=== PATIENT | male | born 1950 | race African-American/Black ===

== ENCOUNTER → 2020-04-26 12:26 | Outpatient (REF) | payer MEDICARE, MEDICAID, SELFPAY ==
--- NOTE | 2020-04-26 13:00 | CA_ITS ---
Transthoracic Echocardiogram Patient (Last, First, Middle): Roger Monroy, Gender: Male Date of : 1950 Age: 69 Procedure Date: 04/26/2020 Procedure Type: Transthoracic Echocardiogram Location: OP Height: 198.12 cm Weight: 111.13 kg BSA: 2.46 m2 Heart Rate: bpm BP: 110 / 60 mmHg Optometrist President/Practice Owner: GORDON Ledbetter MD: Vikash Mcknight MD Intelligence Clerk: Vikash Mcknight MD Symptoms: heart failure with reduced EF. Cardiomyopathy. Mitral Regurg Study Quality: Fair ECG Rhythm: Sinus Conclusions: - 1. Mildly dilated left ventricle with [id number] LV systolic dysfunction with LVEF of 40-45% with impaired relaxation filling pattern 2. Mild left atrial enlargement 3. Mild aortic and mitral regurgitation 4. Normal RV systolic pressure 5. No pericardial effusion Findings Left Ventricle Mildly increased left ventricular cavity size. There is normal left ventricular wall thickness. The left ventricular systolic function is mild to moderately decreased. The visually estimated ejection fraction is between 40-45%. There is moderate global hypokinesis. Spectral Doppler is indicative of an impaired relaxation filling pattern. E/E prime ratio is between 8 and 15 consistent with indeterminate filling pressures. Right Ventricle Normal right ventricular cavity size and systolic function. There is an ICD wire seen in the right ventricle. Atria The left atrium is mildly dilated. Interatrial shunt cannot be excluded. The right atrium is normal in size. Aortic Valve Normal aortic valve structure and function. There is no aortic valve stenosis. There is mild aortic valve regurgitation. Mitral Valve There is mild anterior and posterior mitral leaflet thickening. There is mild mitral valve regurgitation. There is no mitral valve stenosis. Pulmonic Valve The pulmonic valve was not well visualized. Tricuspid Valve Likely normal tricuspid valve structure and function. There is trace tricuspid valve regurgitation. The right ventricular systolic pressure is normal. The right ventricular systolic pressure is 21 mmHg. Normal right atrial pressure. There is no evidence of pulmonary hypertension. Great Vessels All visible segments of the aorta are normal in size. The pulmonary artery was not well visualized. Venous The inferior vena cava is normal in size and collapses greater than 50% with inspiration. Pericardium/Pleural There is no evidence of pericardial effusion. Prior Study Comparison Changes noted compared to prior study dated: 04/14/2019. LV systolic function is marginally improved Measurements 2D Linear Measurements IVSd: 1.01 0.6-0.9/0.6-1.0 cm LVIDd: 6.11 3.9-5.3/4.2-5.9 cm LVIDd Index: 2.48 2.4-3.2/2.2-3.1 cm/m2 LVIDs: 5.51 2.0-3.6 cm LVPWd: 1.05 0.7-1.1 cm Ao Root: 4.00 2.1-3.5 cm LA Diam: 3.60 2.7-3.8/3.0-4.0 cm LAIDs Index: 1.46 1.5-2.3 cm/m2 LV Mass: 329.93 67-162/88-224 g LV Mass Index: 134.12 43-95/49-115 g/m2 LVOT Diam: 2.30 3.0+(-)1.3 cm 2D Systolic Function EF 4C: 49.40 >55% EF 2C: 36.70 >55% EF BiP: 43.40 >55% Mitral Valve MV Pk E: 0.62 MV PK A: 0.80 MV Decel Time: 206.00 E/A: 0.80 E'Lateral: 5.98 E'Medial: 4.13 E/E' Med: 15.10 E/E' Lat: 10.40 PHT: 57.00 MVA PHT: 3.86 Decel [place]: 3.17 Aortic Valve AoV Pk Wiley: 1.60 AoV Mn Wiley: 1.18 AoV VTI: 0.33 AoV Pk Grad: 10.00 Aov Mn Grad: 6.00 CARLINE Cont.VTI: 2.46 AI Pk Wiley: 4.37 AI [place]: 2.45 LVOT LVOT Pk Wiley: 0.91 LVOT Mn Wiley: 0.62 LVOT VTI: 0.19 LVOT Pk Grad: 3.00 LVOT Mn Grad: 2.00 LVOT Diam: 2.30 LVOT Area: 4.15 Diastolic Function MV Pk E: 0.62 MV Pk A: 0.80 E/A: 0.80 E'Medial: 4.13 E/E' Med: 15.10 E' Laterial: 5.98 E/E' Lat: 10.40 Tricuspid Valve TR Pk Wiley: 2.10 TR Pk Grad: 18.00 RA Press: 3.00 RVSP: 21.00 Great Vessels Aorta Ao Root-2D: 4.00 2.0-3.7 cm Ao Asc: 3.70 2.1-3.4 cm Ao Arch: 2.80 Updated in Other Vendor System with Status of Final Vikash Mcknight MD electronically signed on 04/26/2020 2:32:51 PM with status of Final
== END ==
LOC: HO.CARD 12:26
PROVIDERS: PCP Internal Medicine; Visit Provider Internal Medicine Cardiovascular Disease
DX: I50.9 Heart failure, unspecified (principal); I42.9 Cardiomyopathy, unspecified; I34.0 Nonrheumatic mitral (valve) insufficiency
CPT/HCPCS: 93306

== ENCOUNTER → 2020-05-02 14:21 | Outpatient (BNVA) | payer MEDICARE, MEDICAID, SELFPAY | PROVIDERS: PCP Internal Medicine; Visit Provider Internal Medicine Cardiovascular Disease | DX: Z45.02 Encounter for adjustment and management of automatic implantable cardiac defibrillator (principal); I50.20 Unspecified systolic (congestive) heart failure; I42.8 Other cardiomyopathies | CPT/HCPCS: 99212 ==

== ENCOUNTER → 2021-02-01 11:56 | Outpatient (BNVA) | payer MEDICARE, MEDICAID, SELFPAY | PROVIDERS: PCP Internal Medicine; Referring Provider Internal Medicine; Visit Provider Internal Medicine Cardiovascular Disease | DX: I50.20 Unspecified systolic (congestive) heart failure (principal); I35.0 Nonrheumatic aortic (valve) stenosis; I34.0 Nonrheumatic mitral (valve) insufficiency; Z95.810 Presence of automatic (implantable) cardiac defibrillator; Z98.890 Other specified postprocedural states; Z88.8 Allergy status to other drugs, medicaments and biological substances; Z79.899 Other long term (current) drug therapy | CPT/HCPCS: 99212 ==

== ENCOUNTER → 2021-07-03 12:27 | Outpatient (REF) | payer MEDICARE, MEDICAID, SELFPAY ==
--- NOTE | 2021-07-03 12:26 | CA_ITS ---
Transthoracic Echocardiogram Patient (Last, First, Middle): Roger Monroy, Gender: Male Date of : 1950 Age: 70 Procedure Date: 07/03/2021 Procedure Type: Transthoracic Echocardiogram Location: OP Height: 198.12 cm Weight: 115.67 kg BSA: 2.50 m2 Heart Rate: bpm BP: 136 / 78 mmHg Cement Crusher Operator: EUGENE Referring MD: Vikash Mcknight MD Net Architect: Vikash Mcknight MD Symptoms: I50.20 - Unspecified systolic (congestive) heart failure Study Quality: Fair ECG Rhythm: Sinus Conclusions: - 1. Moderately dilated left ventricle with mild LVH with low normal LV systolic function with LVEF of 50-55% with impaired relaxation filling pattern 2. Moderately dilated left atrium 3. Mild aortic and mitral regurgitation 4. Normal RV systolic pressure 5. No pericardial effusion Findings Left Ventricle Moderately increased left ventricular cavity size. There is mildly increased left ventricular wall thickness. The left ventricular systolic function is low normal. The visually estimated ejection fraction is between 50-55%. Spectral Doppler is indicative of an impaired relaxation filling pattern. E/E prime ratio is between 8 and 15 consistent with indeterminate filling pressures. Right Ventricle Mildly increased right ventricular cavity size. There is normal right ventricular systolic function. There is an ICD wire seen in the right ventricle. Atria The left atrium is moderately dilated. Interatrial shunt cannot be excluded. The right atrium is mildly dilated. Aortic Valve There is mild calcification of the aortic valve. There is no aortic valve stenosis. There is mild aortic valve regurgitation. Mitral Valve There is mild anterior and posterior mitral leaflet thickening. There is mild mitral valve regurgitation. There is no mitral valve stenosis. Tricuspid Valve Likely normal tricuspid valve structure and function. There is trace tricuspid valve regurgitation. The right ventricular systolic pressure is normal. The right ventricular systolic pressure is 25 mmHg. Normal right atrial pressure. There is no evidence of pulmonary hypertension. Great Vessels The pulmonary artery was not well visualized. There is mild dilatation of the ascending aorta measuring 3.90 cm. Venous The inferior vena cava is normal in size and collapses greater than 50% with inspiration. Pericardium/Pleural There is no evidence of pericardial effusion. Prior Study Comparison Changes noted compared to prior study dated: 04/26/2020. LV systolic function is improved Measurements 2D Linear Measurements IVSd: 1.24 0.6-0.9/0.6-1.0 cm LVIDd: 6.48 3.9-5.3/4.2-5.9 cm LVIDd Index: 2.59 2.4-3.2/2.2-3.1 cm/m2 LVIDs: 5.05 2.0-3.6 cm LVPWd: 1.18 0.7-1.1 cm LA Diam: 3.60 2.7-3.8/3.0-4.0 cm LAIDs Index: 1.44 1.5-2.3 cm/m2 LV Mass: 493.01 67-162/88-224 g LV Mass Index: 197.20 43-95/49-115 g/m2 LVOT Diam: 2.40 3.0+(-)1.3 cm 2D Systolic Function EF 4C: 50.90 >55% EF 2C: 52.30 >55% EF BiP: 52.10 >55% Mitral Valve MV Pk E: 0.54 MV PK A: 0.72 MV Decel Time: 323.00 E/A: 0.70 E'Lateral: 5.87 E'Medial: 5.44 E/E' Med: 9.90 E/E' Lat: 9.10 PHT: 95.00 MVA PHT: 2.32 Decel [place]: 1.66 Aortic Valve AoV Pk Wiley: 1.72 AoV Mn Wiley: 1.20 AoV VTI: 0.43 AoV Pk Grad: 12.00 Aov Mn Grad: 7.00 CARLINE Cont.VTI: 2.77 AI Pk Wiley: 4.52 AI [place]: 1.90 LVOT LVOT Pk Wiley: 1.00 LVOT Mn Wiley: 0.69 LVOT VTI: 0.26 LVOT Pk Grad: 4.00 LVOT Mn Grad: 2.00 LVOT Diam: 2.40 LVOT Area: 4.52 Diastolic Function MV Pk E: 0.54 MV Pk A: 0.72 E/A: 0.70 E'Medial: 5.44 E/E' Med: 9.90 E' Laterial: 5.87 E/E' Lat: 9.10 Right Ventricle TAPSE (mm): 2.57 TVS' Wiley: 12.40 Tricuspid Valve TR Pk Wiley: 2.33 TR Pk Grad: 22.00 RA Press: 3.00 RVSP: 25.00 Great Vessels Aorta Sinus of Valsalva: 3.88 2.0-3.[address] [place]: 3.51 1.7-3.4 cm Ao Asc: 3.90 2.1-3.4 cm Ao Arch: 3.00 Updated in Other Vendor System with Status of Final Vikash Mcknight MD electronically signed on 07/04/2021 8:43:53 AM with status of Final
== END ==
LOC: HO.CARD 12:27
PROVIDERS: PCP Internal Medicine; Visit Provider Internal Medicine Cardiovascular Disease
DX: I50.20 Unspecified systolic (congestive) heart failure (principal)
CPT/HCPCS: 93306

== ENCOUNTER → 2021-07-31 13:22 | Outpatient (BNVA) | payer MEDICARE, MEDICAID, SELFPAY | PROVIDERS: PCP Internal Medicine; Referring Provider Internal Medicine; Visit Provider Internal Medicine Cardiovascular Disease | DX: Z45.02 Encounter for adjustment and management of automatic implantable cardiac defibrillator (principal); I50.20 Unspecified systolic (congestive) heart failure | CPT/HCPCS: 93282; 99212 ==

== ENCOUNTER → 2021-10-09 13:20 | Outpatient (BNVA) | payer MEDICARE, MEDICAID, SELFPAY | PROVIDERS: PCP Internal Medicine; Referring Provider Internal Medicine; Visit Provider Internal Medicine Cardiovascular Disease | DX: Z45.02 Encounter for adjustment and management of automatic implantable cardiac defibrillator (principal); I50.20 Unspecified systolic (congestive) heart failure; I48.0 Paroxysmal atrial fibrillation | CPT/HCPCS: 93005; 99212 ==

== ENCOUNTER 2022-02-05 14:04 | Outpatient (REF) | payer MEDICARE, MEDICAID, SELFPAY ==
[2022-02-05 14:45] LABS: Hemoglobin 12.6 g/dl (14.0-18.0); Mean Corpuscular HGB Conc 31.5 g/dl (31.0-36.0); Mean Corpuscular Hemoglobin 27.9 pg (27.0-33.0); Mean Corpuscular Volume 88.5 fL (80.0-98.0); Platelet Count 219 X10*3/uL (160-400); Red Blood Count 4.52 X10*6/uL (4.60-5.80); Red Cell Distribution Width 13.6 % (11.0-16.0); White Blood Count 6.2 X10*3/uL (4.8-10.8)
[2022-02-05 15:33] LABS: Anion Gap 12 (12-20); Blood Urea Nitrogen 15 mg/dL (9-16); Calcium 9.2 mg/dL (8.4-10.2); Carbon Dioxide 30 mmol/L (22-29); Chloride 103 mmol/L (96-108); Estimated Glomerular Filt Rate 52; Glucose Random 76 mg/dL (60-115); Potassium 4.5 mmol/L (3.3-5.1); Sodium 140 mmol/L (135-145)
== END 2022-02-05 14:05 | disposition home or self-care (01) ==
LOC: HO.LAB 14:04
PROVIDERS: PCP Internal Medicine; Visit Provider Internal Medicine Cardiovascular Disease
DX: I42.8 Other cardiomyopathies (principal); I50.20 Unspecified systolic (congestive) heart failure; I48.0 Paroxysmal atrial fibrillation; Z95.810 Presence of automatic (implantable) cardiac defibrillator
CPT/HCPCS: 36415; 80048; 85027; 99212

== ENCOUNTER → 2022-04-15 13:46 | Outpatient (BNVA) | payer MEDICARE, MEDICAID, SELFPAY | PROVIDERS: PCP Internal Medicine; Referring Provider Internal Medicine; Visit Provider Internal Medicine Cardiovascular Disease | DX: I50.20 Unspecified systolic (congestive) heart failure (principal); I48.0 Paroxysmal atrial fibrillation; Z95.810 Presence of automatic (implantable) cardiac defibrillator | CPT/HCPCS: 99212 ==

== ENCOUNTER → 2022-07-22 13:26 | Outpatient (REF) | payer MEDICARE, MEDICAID, SELFPAY ==
--- NOTE | 2022-07-22 13:33 | CA_ITS ---
Transthoracic Echocardiogram Patient (Last, First, Middle): Roger Monroy, Gender: Male Date of : 1950 Age: 71 Procedure Date: 07/22/2022 Procedure Type: Transthoracic Echocardiogram Location: OP Height: 198.12 cm Weight: 115.21 kg BSA: 2.50 m2 Heart Rate: bpm BP: 130 / 80 mmHg Head Operator Sulfide: EUGENE Referring MD: Vikash Mcknight MD Symptoms: I50.20 - Unspecified systolic (congestive) heart failure Study Quality: Adequate ECG Rhythm: Sinus Conclusions: - The left ventricular systolic function is low normal. The visually estimated ejection fraction is between 50-55%. - The left atrium is severely dilated. - There is mild aortic valve regurgitation. - There is mild mitral valve regurgitation. Findings Left Ventricle Moderately increased left ventricular cavity size. There is mildly increased left ventricular wall thickness. The left ventricular systolic function is low normal. The visually estimated ejection fraction is between 50-55%. There is no evidence of regional wall motion abnormalities. Diastolic function is normal for age. LV peak GLS -16%. Right Ventricle Normal right ventricular cavity size. There is normal right ventricular systolic function. There is a pacemaker wire seen in the right ventricle. Atria The left atrium is severely dilated. The right atrium is normal in size. Aortic Valve There is a normal trileaflet aortic valve. There is no aortic valve stenosis. There is mild aortic valve regurgitation. Mitral Valve The mitral valve appears normal. There is mild mitral valve regurgitation. There is no mitral valve stenosis. Pulmonic Valve The pulmonic valve is likely normal. Tricuspid Valve There is trace tricuspid valve regurgitation. Great Vessels The asc aorta is normal in size. Venous The inferior vena cava is dilated and collapses greater than 50% with inspiration. Pericardium/Pleural There is no evidence of pericardial effusion. Prior Study Comparison No significant change compared to prior study dated: 07/03/2021. Measurements 2D Linear Measurements IVSd: 1.26 0.6-0.9/0.6-1.0 cm LVIDd: 6.10 3.9-5.3/4.2-5.9 cm LVIDd Index: 2.44 2.4-3.2/2.2-3.1 cm/m2 LVIDs: 4.48 2.0-3.6 cm LVPWd: 1.24 0.7-1.1 cm LA Diam: 4.30 2.7-3.8/3.0-4.0 cm LAIDs Index: 1.72 1.5-2.3 cm/m2 LV Mass: 425.44 67-162/88-224 g LV Mass Index: 170.18 43-95/49-115 g/m2 LVOT Diam: 2.40 3.0+(-)1.3 cm 2D Systolic Function EF 4C: 59.90 >55% EF 2C: 57.90 >55% Mitral Valve MV Pk E: 0.88 MV PK A: 0.84 MV Decel Time: 261.00 E/A: 1.10 E'Lateral: 10.30 E'Medial: 7.40 E/E' Med: 11.90 E/E' Lat: 8.50 PHT: 76.00 MVA PHT: 2.89 Decel [place]: 3.37 Aortic Valve AoV Pk Wiley: 1.81 AoV Mn Wiley: 1.24 AoV VTI: 0.45 AoV Pk Grad: 13.00 Aov Mn Grad: 7.00 CARLINE Cont.VTI: 3.42 AI Pk Wiley: 4.31 AI [place]: 1.85 LVOT LVOT Pk Wiley: 1.47 LVOT Mn Wiley: 0.89 LVOT VTI: 0.34 LVOT Pk Grad: 9.00 LVOT Mn Grad: 4.00 LVOT Diam: 2.40 LVOT Area: 4.52 Diastolic Function MV Pk E: 0.88 MV Pk A: 0.84 E/A: 1.10 E'Medial: 7.40 E/E' Med: 11.90 E' Laterial: 10.30 E/E' Lat: 8.50 Right Ventricle TAPSE (mm): 22.40 TVS' Wiley: 10.00 Tricuspid Valve TR Pk Wiley: 2.28 TR Pk Grad: 21.00 RA Press: 8.00 RVSP: 29.00 Great Vessels Aorta Sinus of Valsalva: 3.89 2.0-3.[address] [place]: 3.47 1.7-3.4 cm Ao Asc: 3.90 2.1-3.4 cm Updated in Other Vendor System with Status of Final Vlad Monroe MD electronically signed on 07/23/2022 11:43:37 AM with status of Final
== END ==
LOC: HO.CARD 13:26
PROVIDERS: PCP Internal Medicine; Visit Provider Internal Medicine Cardiovascular Disease
DX: I42.8 Other cardiomyopathies (principal); I50.20 Unspecified systolic (congestive) heart failure
CPT/HCPCS: 93306; 93356

== ENCOUNTER → 2022-08-06 13:22 | Outpatient (BNVA) | payer MEDICARE, MEDICAID, SELFPAY | PROVIDERS: PCP Internal Medicine; Referring Provider Internal Medicine; Visit Provider Internal Medicine Cardiovascular Disease | DX: Z45.02 Encounter for adjustment and management of automatic implantable cardiac defibrillator (principal); I50.20 Unspecified systolic (congestive) heart failure; I48.0 Paroxysmal atrial fibrillation | CPT/HCPCS: 99212 ==

== ENCOUNTER → 2022-09-30 23:59 | Outpatient (BNV) | payer MEDICARE, MEDICAID, SELFPAY ==
--- NOTE | 2022-10-03 09:22 | A.OFFVIS_ITS ---
Intake Intake Visit Reasons: Remote HF Monitoring- [facility] Allergies prednisone [PREDNISONE] Allergy (Unknown, Unverified 12/02/19 15:57) UNKNOWN [facility] Medical History Heart failure with reduced ejection fraction ICD (implantable cardioverter-defibrillator) in place Mitral regurgitation Nonischemic cardiomyopathy Surgical History History of permanent cardiac pacemaker placement Hx of cardiac cath Hx of knee surgery Family History Father Sudden cardiac Mother No problems noted. Office Procedures Cardiac Device Check Cardiac Device Check Details: Remote heart failure report generated 09/30/2022. Heart failure parameters stable [id number] Cardiac Device Interrogation, cardio physiologic monitor Procedure code (CPT) selection complete Coding Level of Care Code Procedure Only Diagnoses CPT Codes Cardiac Device Check - Cardiac Device 15: [id number] Cardiac Device Interrogation, cardio physiologic monitor ([id number])
== END ==
PROVIDERS: PCP Internal Medicine; Visit Provider Internal Medicine Cardiovascular Disease
DX: I50.20 Unspecified systolic (congestive) heart failure (principal); Z95.810 Presence of automatic (implantable) cardiac defibrillator
CPT/HCPCS: 93297

== ENCOUNTER → 2022-11-14 23:59 | Outpatient (BNV) | payer MEDICARE, MEDICAID, SELFPAY ==
--- NOTE | 2022-11-14 11:40 | MHC.OFFVIS ---
Intake Intake Visit Reasons: Remote HF Monitoring- [facility] Allergies prednisone [PREDNISONE] Allergy (Unknown, Unverified 12/02/19 15:57) UNKNOWN [facility] Medical History Heart failure with reduced ejection fraction ICD (implantable cardioverter-defibrillator) in place Mitral regurgitation Nonischemic cardiomyopathy Surgical History History of permanent cardiac pacemaker placement Hx of cardiac cath Hx of knee surgery Family History Father Sudden cardiac Mother No problems noted. Office Procedures Cardiac Device Check Cardiac Device Check Details: Remote heart failure report generated 11/14/2022. Heart failure parameters are stable [id number] Cardiac Device Interrogation, cardio physiologic monitor Procedure code (CPT) selection complete Coding Level of Care Code Procedure Only Diagnoses CPT Codes Cardiac Device Check - Cardiac Device 15: [id number] Cardiac Device Interrogation, cardio physiologic monitor ([id number])
== END ==
PROVIDERS: PCP Internal Medicine; Visit Provider Internal Medicine Cardiovascular Disease
DX: I50.22 Chronic systolic (congestive) heart failure (principal); Z95.810 Presence of automatic (implantable) cardiac defibrillator
CPT/HCPCS: 93297

== ENCOUNTER → 2022-11-23 23:59 | Outpatient (BNV) | payer MEDICARE, MEDICAID, SELFPAY ==
--- NOTE | 2022-11-25 09:37 | A.OFFVIS_ITS ---
Intake Intake Visit Reasons: Remote ICD Check- [facility] Allergies prednisone [PREDNISONE] Allergy (Unknown, Unverified 12/02/19 15:57) UNKNOWN [facility] Medical History Heart failure with reduced ejection fraction ICD (implantable cardioverter-defibrillator) in place Mitral regurgitation Nonischemic cardiomyopathy Surgical History History of permanent cardiac pacemaker placement Hx of cardiac cath Hx of knee surgery Family History Father Sudden cardiac Mother No problems noted. Office Procedures Cardiac Device Check Cardiac Device Check Details: Remote ICD report generated 11/23/2022. ICD function is adequate [id number] Cardiac Interrogation, implant defibrillator w/interim Procedure code (CPT) selection complete Coding Level of Care Code Procedure Only CPT Codes Cardiac Device Check - Cardiac Device 13: [id number] Cardiac Interrogation, implant defibrillator w/interim ([id number])
== END ==
PROVIDERS: PCP Internal Medicine; Visit Provider Internal Medicine Cardiovascular Disease
DX: I42.8 Other cardiomyopathies (principal); Z95.810 Presence of automatic (implantable) cardiac defibrillator
CPT/HCPCS: 93295

== ENCOUNTER → 2022-12-20 23:59 | Outpatient (BNV) | payer MEDICARE, MEDICAID, SELFPAY ==
--- NOTE | 2023-01-06 09:02 | MHC.OFFVIS ---
Intake Intake Visit Reasons: Remote HF Monitoring- [facility] Allergies prednisone [PREDNISONE] Allergy (Unknown, Unverified 12/02/19 15:57) UNKNOWN [facility] Medical History Heart failure with reduced ejection fraction ICD (implantable cardioverter-defibrillator) in place Mitral regurgitation Nonischemic cardiomyopathy Surgical History History of permanent cardiac pacemaker placement Hx of cardiac cath Hx of knee surgery Family History Father Sudden cardiac Mother No problems noted. Office Procedures Cardiac Device Check Cardiac Device Check Details: Remote heart failure report generated 12/20/2022. Heart failure parameters are stable [id number] Cardiac Device Interrogation, cardio physiologic monitor Procedure code (CPT) selection complete Coding Level of Care Code Procedure Only CPT Codes Cardiac Device Check - Cardiac Device 15: [id number] Cardiac Device Interrogation, cardio physiologic monitor ([id number])
== END ==
PROVIDERS: PCP Internal Medicine; Visit Provider Internal Medicine Cardiovascular Disease
DX: I50.20 Unspecified systolic (congestive) heart failure (principal); Z95.810 Presence of automatic (implantable) cardiac defibrillator
CPT/HCPCS: 93297

== ENCOUNTER 2023-02-04 12:48 | Outpatient (AMB) | payer MEDICARE, MEDICAID, SELFPAY ==
[2023-02-04 13:10] VITALS: BP 122/68; PULSE 60; BMI 28.5
--- NOTE | 2023-02-04 13:10 | A.OFFVIS_ITS ---
Intake Vital Signs 02/04/23 13:10 Height 6 ft 6 in Weight 246 lb 14.684 oz BMI 28.5 BP 122/68 Blood Pressure Location Lt brachial Position Sitting Pulse 60 Intake Visit Reasons: 6 mth w/ device ck Intake Note: 6 month follow-up with ekg and [facility] check hearts doing good [employer] Driver Required: No Allergies prednisone [PREDNISONE] Allergy (Unknown, Unverified 12/02/19 15:57) UNKNOWN Medication List - Last Reconciled 02/04/23 by Vikash Mcknight MD amitriptyline 25 mg PO BID apixaban (Eliquis) 5 mg PO BID carvedilol 50 mg (2 x 25 mg) PO Q12H finasteride 5 mg PO DAILY furosemide 40 mg PO BID ipratropium-albuterol 0.5 mg-3 mg(2.5 mg base)/3 mL mL inhalation Q4H PRN ivabradine (Corlanor) 5 mg PO BID 90 days omeprazole 20 mg PO BID oxycodone-acetaminophen 5-325 mg 1 tab PO sacubitril-valsartan 97-103 mg (Entresto) 1 tab PO BID 90 days tamsulosin 0.4 mg PO BEDTIME HPI HPI Comments History of Present Illness Details Roger comes for follow-up. He is doing well from cardiac perspective. Recently had significant back discomfort that require injection. Otherwise he has had no cardiac symptoms. Denies any exertional chest pain or shortness of breath. No heart failure symptoms. Denies any orthopnea, PND, leg edema or weight gain. No palpitations, lightheadedness, syncope, ICD discharge. [facility] Medical History ICD (implantable cardioverter-defibrillator) in place Mitral regurgitation Nonischemic cardiomyopathy Heart failure with reduced ejection fraction Surgical History History of permanent cardiac pacemaker placement Hx of cardiac cath Hx of knee surgery Family History Father Sudden cardiac Mother No problems noted. Review of Systems Const Denies chills, Denies fatigue, Denies fever(s), Denies frequent falls, Denies weakness, Denies weight gain and Denies weight loss ENT Denies dizziness Card Denies chest pain, Denies leg edema, Denies lightheadedness, Denies palpitations, Denies dyspnea, Denies dyspnea on exertion, Denies orthopnea and Denies other (loss of consciousness) Resp Denies cough, Denies dyspnea and Denies dyspnea on exertion GI Denies hematochezia and Denies change in stool character Musc Denies abnormal gait, Denies muscle weakness, Denies numbness, Denies radiating pain into limb and Denies tingling Neuro Denies abnormal gait, Denies dizziness, Denies frequent falls, Denies numbness, Denies tingling and Denies weakness Endo Denies fatigue and Denies palpitations Physical Exam Vital Signs: Last Vital Signs Pulse 60 02/04/23 13:10 BP 122/68 02/04/23 13:10 BMI result Body Mass Index 28.5 Const General: cooperative, no acute distress, alert and awake Nutritional Appearance: overweight Orientation/consciousness: patient oriented x3 Limitations: no limitations Neck Neck: Yes trachea midline, Yes supple and Yes no JVD Resp Effort & Inspection: normal respiratory effort Auscultation: clear to auscultation bilaterally Cardio Jugular venous distension: no JVD Palpation: abnormal PMI displaced PMI Rate: regular rate Rhythm: regular rhythm Heart sounds: S1 normal heart sound present and S2 normal heart sound present GI Auscultation: normal bowel sounds Skin General skin exam: no rashes or lesions noted Neuro General: patient oriented x3 and no focal motor deficits Extrem General: Yes no clubbing, cyanosis or edema Psych Appearance: grossly normal Office Procedures Cardiac Device Check Cardiac Device Check Details: Single-chamber [place] ICD in place. Programmed in VVI at 40 beats per minute. Ventricular pacing thresholds adequate. Ventricular sensing is adequate. Pacing and shock lead impedance is stable. Battery life is adequate. [id number] Cardiac Device Check, single lead implantable defibrillator Procedure code (CPT) selection complete EKG Details: EKG shows sinus bradycardia otherwise normal EKG 56921-[id number], Complete Assessment & Plan Assessment & Plan (1) Heart failure with reduced ejection fraction: Code(s): I50.20 - Unspecified systolic (congestive) heart failure Plan: Prior history of heart failure with reduced ejection fraction with severe cardiomyopathy with improved LV ejection fraction on neurohormonal modulation and medical therapy. Clinically euvolemic and well compensated. Continue current diuretic regimen. Continue current neurohormonal modulation carvedilol as well as Entresto and Corlanor. Signs and symptoms of heart failure were discussed. Daily weight monitoring avoidance of salt loading was discussed avoidance of cardiotoxic agent was discussed. Follow-up echocardiogram 6 months time. (2) PAF (paroxysmal atrial fibrillation): Comment: high suspicion on remote ICD monitoring Code(s): I48.0 - Paroxysmal atrial fibrillation Plan: Paroxysmal atrial fibrillation with no clinical recurrence at this point time by cardiac telemetry. Will continue monitor. Advised to call me with any new symptoms. Currently on full oral anticoagulation with Eliquis 5 mg b.i.d.. Semi annual renal function test should be pursued. Avoidance of stimulants was discussed. No need for antiarrhythmic drug therapy. (3) ICD (implantable cardioverter-defibrillator) in place: Code(s): Z95.810 - Presence of automatic (implantable) cardiac defibrillator Plan: ICD in place for primary prevention. Working well. Will follow remotely for heart failure on device check. Follow up in the clinic in 6 months time. Follow up in the clinic in 6 months time, sooner p.r.n.. Thank you for allowing me to partake in his care Orders: Orders CA echo transthoracic complete 6 Months I50.20 - Unspecified systolic (congestive) heart failure Coding Level of Care Code Est Pt Level 4 (59243) Diagnoses Heart failure with reduced ejection fraction I50.20 PAF (paroxysmal atrial fibrillation) I48.0 ICD (implantable cardioverter-defibrillator) in place Z95.810 CPT Codes Cardiac Device Check - Cardiac Device 4: 41762-OW Cardiac Device Check, single lead implantable defibrillator ([id number]) EKG - CPT: 53687-Wnbfpzrnypyeweqmu, Complete ([id number])
== END 2023-02-04 13:36 | disposition home or self-care (01) ==
PROVIDERS: Visit Provider Internal Medicine Cardiovascular Disease
DX: I50.20 Unspecified systolic (congestive) heart failure (principal); I48.0 Paroxysmal atrial fibrillation; Z95.810 Presence of automatic (implantable) cardiac defibrillator; R00.1 Bradycardia, unspecified
CPT/HCPCS: 93010; 93282; 99214

== ENCOUNTER → 2023-02-04 12:48 | Outpatient (BNVA) | payer MEDICARE, MEDICAID, SELFPAY | PROVIDERS: Visit Provider Internal Medicine Cardiovascular Disease | DX: I11.0 Hypertensive heart disease with heart failure (principal); I50.20 Unspecified systolic (congestive) heart failure; I48.0 Paroxysmal atrial fibrillation; I42.8 Other cardiomyopathies; I34.0 Nonrheumatic mitral (valve) insufficiency; Z98.890 Other specified postprocedural states; Z45.02 Encounter for adjustment and management of automatic implantable cardiac defibrillator | CPT/HCPCS: 93005; 99212 ==

== ENCOUNTER → 2023-02-10 23:59 | Outpatient (BNV) | payer MEDICARE, MEDICAID, SELFPAY ==
--- NOTE | 2023-02-10 15:09 | MHC.OFFVIS ---
Intake Intake Visit Reasons: Remote HF Monitoring- [facility] Allergies prednisone [PREDNISONE] Allergy (Unknown, Unverified 12/02/19 15:57) UNKNOWN [facility] Medical History ICD (implantable cardioverter-defibrillator) in place Mitral regurgitation Nonischemic cardiomyopathy Heart failure with reduced ejection fraction Surgical History History of permanent cardiac pacemaker placement Hx of cardiac cath Hx of knee surgery Family History Father Sudden cardiac Mother No problems noted. Office Procedures Cardiac Device Check Cardiac Device Check Details: Remote heart failure report generated 02/10/2023. Heart failure parameters are stable [id number] Cardiac Device Interrogation, cardio physiologic monitor Procedure code (CPT) selection complete Coding Level of Care Code Procedure Only CPT Codes Cardiac Device Check - Cardiac Device 15: [id number] Cardiac Device Interrogation, cardio physiologic monitor ([id number])
== END ==
PROVIDERS: PCP Internal Medicine; Visit Provider Internal Medicine Cardiovascular Disease
DX: I50.20 Unspecified systolic (congestive) heart failure (principal); Z95.810 Presence of automatic (implantable) cardiac defibrillator
CPT/HCPCS: 93297

== ENCOUNTER → 2023-02-22 23:59 | Outpatient (BNV) | payer MEDICARE, MEDICAID, SELFPAY ==
--- NOTE | 2023-02-24 11:26 | MHC.OFFVIS ---
Intake Intake Visit Reasons: Remote ICD Check- [facility] Allergies prednisone [PREDNISONE] Allergy (Unknown, Unverified 12/02/19 15:57) UNKNOWN [facility] Medical History ICD (implantable cardioverter-defibrillator) in place Mitral regurgitation Nonischemic cardiomyopathy Heart failure with reduced ejection fraction Surgical History History of permanent cardiac pacemaker placement Hx of cardiac cath Hx of knee surgery Family History Father Sudden cardiac Mother No problems noted. Office Procedures Cardiac Device Check Cardiac Device Check Details: Remote ICD report generated 02/22/2023. ICD function is adequate [id number] Cardiac Interrogation, implant defibrillator w/interim Procedure code (CPT) selection complete Assessment & Plan Assessment & Plan (1) ICD (implantable cardioverter-defibrillator) in place: Code(s): Z95.810 - Presence of automatic (implantable) cardiac defibrillator Plan: See above Coding Level of Care Code Procedure Only Diagnoses ICD (implantable cardioverter-defibrillator) in place Z95.810 CPT Codes Cardiac Device Check - Cardiac Device 13: [id number] Cardiac Interrogation, implant defibrillator w/interim ([id number])
== END ==
PROVIDERS: PCP Internal Medicine; Visit Provider Internal Medicine Cardiovascular Disease
DX: I42.8 Other cardiomyopathies (principal); Z95.810 Presence of automatic (implantable) cardiac defibrillator
CPT/HCPCS: 93295

== ENCOUNTER → 2023-03-13 23:59 | Outpatient (BNV) | payer MEDICARE, MEDICAID, SELFPAY ==
--- NOTE | 2023-03-18 08:10 | A.OFFVIS_ITS ---
Intake Intake Visit Reasons: Remote HF Monitoring- [facility] Allergies prednisone [PREDNISONE] Allergy (Unknown, Unverified 12/02/19 15:57) UNKNOWN [facility] Medical History ICD (implantable cardioverter-defibrillator) in place Mitral regurgitation Nonischemic cardiomyopathy Heart failure with reduced ejection fraction Surgical History History of permanent cardiac pacemaker placement Hx of cardiac cath Hx of knee surgery Family History Father Sudden cardiac Mother No problems noted. Office Procedures Cardiac Device Check Cardiac Device Check Details: Remote heart failure report generated 03/13/2023. Heart failure parameters are stable [id number] Cardiac Device Interrogation, cardio physiologic monitor Procedure code (CPT) selection complete Assessment & Plan Assessment & Plan (1) Heart failure with reduced ejection fraction: Code(s): I50.20 - Unspecified systolic (congestive) heart failure Plan: See above Coding Level of Care Code Procedure Only Diagnoses Heart failure with reduced ejection fraction I50.20 CPT Codes Cardiac Device Check - Cardiac Device 15: [id number] Cardiac Device Interrogation, cardio physiologic monitor ([id number])
== END ==
PROVIDERS: PCP Internal Medicine; Visit Provider Internal Medicine Cardiovascular Disease
DX: I50.20 Unspecified systolic (congestive) heart failure (principal); Z95.810 Presence of automatic (implantable) cardiac defibrillator
CPT/HCPCS: 93297

== ENCOUNTER → 2023-05-19 23:59 | Outpatient (BNV) | payer MEDICARE, MEDICAID, SELFPAY ==
--- NOTE | 2023-05-19 16:33 | MHC.OFFVIS ---
Intake Intake Visit Reasons: Remote HF Monitoring- [facility] Allergies prednisone [PREDNISONE] Allergy (Unknown, Unverified 12/02/19 15:57) UNKNOWN [facility] Medical History ICD (implantable cardioverter-defibrillator) in place Mitral regurgitation Nonischemic cardiomyopathy Heart failure with reduced ejection fraction Surgical History History of permanent cardiac pacemaker placement Hx of cardiac cath Hx of knee surgery Family History Father Sudden cardiac Mother No problems noted. Office Procedures Cardiac Device Check Cardiac Device Check Details: Remote heart failure report generated 05/19/2023. Heart failure parameters are stable [id number] Cardiac Device Interrogation, cardio physiologic monitor Procedure code (CPT) selection complete Assessment & Plan Assessment & Plan (1) ICD (implantable cardioverter-defibrillator) in place: Code(s): Z95.810 - Presence of automatic (implantable) cardiac defibrillator Plan: See above Coding Level of Care Code Procedure Only Diagnoses ICD (implantable cardioverter-defibrillator) in place Z95.810 CPT Codes Cardiac Device Check - Cardiac Device 15: [id number] Cardiac Device Interrogation, cardio physiologic monitor ([id number])
== END ==
PROVIDERS: PCP Internal Medicine; Visit Provider Internal Medicine Cardiovascular Disease
DX: I50.20 Unspecified systolic (congestive) heart failure (principal); Z95.810 Presence of automatic (implantable) cardiac defibrillator
CPT/HCPCS: 93297

== ENCOUNTER → 2023-05-24 23:59 | Outpatient (BNV) | payer MEDICARE, MEDICAID, SELFPAY ==
--- NOTE | 2023-05-26 15:45 | MHC.OFFVIS ---
Intake Intake Visit Reasons: Remote ICD Check- [facility] Allergies prednisone [PREDNISONE] Allergy (Unknown, Unverified 12/02/19 15:57) UNKNOWN [facility] Medical History ICD (implantable cardioverter-defibrillator) in place Mitral regurgitation Nonischemic cardiomyopathy Heart failure with reduced ejection fraction Surgical History History of permanent cardiac pacemaker placement Hx of cardiac cath Hx of knee surgery Family History Father Sudden cardiac Mother No problems noted. Office Procedures Cardiac Device Check Cardiac Device Check Details: Remote ICD report generated 05/24/2023. ICD function is adequate. No arrhythmias detected [id number] Cardiac Interrogation, implant defibrillator w/interim Procedure code (CPT) selection complete Assessment & Plan Assessment & Plan (1) ICD (implantable cardioverter-defibrillator) in place: Code(s): Z95.810 - Presence of automatic (implantable) cardiac defibrillator Plan: See above Coding Level of Care Code Procedure Only Diagnoses ICD (implantable cardioverter-defibrillator) in place Z95.810 CPT Codes Cardiac Device Check - Cardiac Device 13: [id number] Cardiac Interrogation, implant defibrillator w/interim ([id number])
== END ==
PROVIDERS: PCP Internal Medicine; Visit Provider Internal Medicine Cardiovascular Disease
DX: I42.8 Other cardiomyopathies (principal); I50.20 Unspecified systolic (congestive) heart failure; Z95.810 Presence of automatic (implantable) cardiac defibrillator
CPT/HCPCS: 93295

== ENCOUNTER → 2023-06-20 23:59 | Outpatient (BNV) | payer MEDICARE, MEDICAID, SELFPAY ==
--- NOTE | 2023-06-23 16:14 | MHC.OFFVIS ---
Intake Intake Visit Reasons: Remote HF monitoring- [facility] Allergies prednisone [PREDNISONE] Allergy (Unknown, Unverified 12/02/19 15:57) UNKNOWN [facility] Medical History ICD (implantable cardioverter-defibrillator) in place Mitral regurgitation Nonischemic cardiomyopathy Heart failure with reduced ejection fraction Surgical History History of permanent cardiac pacemaker placement Hx of cardiac cath Hx of knee surgery Family History Father Sudden cardiac Mother No problems noted. Office Procedures Cardiac Device Check Cardiac Device Check Details: Remote heart failure report generated 06/20/2023. Heart failure parameters are stable [id number] Cardiac Device Interrogation, cardio physiologic monitor Procedure code (CPT) selection complete Assessment & Plan Assessment & Plan (1) ICD (implantable cardioverter-defibrillator) in place: Code(s): Z95.810 - Presence of automatic (implantable) cardiac defibrillator Plan: See above Coding Level of Care Code Procedure Only Diagnoses ICD (implantable cardioverter-defibrillator) in place Z95.810 CPT Codes Cardiac Device Check - Cardiac Device 15: [id number] Cardiac Device Interrogation, cardio physiologic monitor ([id number])
== END ==
PROVIDERS: PCP Internal Medicine; Visit Provider Internal Medicine Cardiovascular Disease
DX: Z45.02 Encounter for adjustment and management of automatic implantable cardiac defibrillator (principal)
CPT/HCPCS: 93297

== ENCOUNTER → 2023-07-15 12:24 | Outpatient (REF) | payer MEDICARE, MEDICAID, SELFPAY ==
--- NOTE | 2023-07-15 12:27 | CA_ITS ---
Transthoracic Echocardiogram Patient (Last, First, Middle): Roger Monroy, Gender: Male Date of : 1950 Age: 72 Procedure Date: 07/15/2023 Procedure Type: Transthoracic Echocardiogram Location: OP Height: 198.12 cm Weight: 114.31 kg BSA: 2.49 m2 Heart Rate: 50 bpm BP: 120 / 64 mmHg Belt Dresser: SB Referring MD: Vikash Mcknight MD Symptoms: I50.20 - Unspecified systolic (congestive) heart failure Study Quality: Adequate ECG Rhythm: Bradycardia Conclusions: - The left ventricular systolic function is mildly decreased. The calculated ejection fraction is 50% by biplane method. - The basal inferior segment is hypokinetic. - The left atrium is moderately dilated. - No obvious valvular pathology seen on this study. Findings Procedure Information Contrast agent, definity, is being given per protocol without apparent complications. Left Ventricle Normal left ventricular cavity size. The left ventricular systolic function is mildly decreased. The calculated ejection fraction is 50% by biplane method. There is mild global hypokinesis. Evidence suggests grade I (mild) diastolic dysfunction. There is mild septal asymmetric hypertrophy. Wall Motion Rest Echo Findings The basal inferior segment is hypokinetic. Right Ventricle Moderately increased right ventricular cavity size. There is normal right ventricular systolic function. There is a pacemaker wire seen in the right ventricle. Atria The left atrium is moderately dilated. The right atrium is normal in size. Aortic Valve There is a normal trileaflet aortic valve. There is no aortic valve stenosis. Trace to mild aortic regurgitation. Mitral Valve The mitral valve appears normal. There is no mitral valve regurgitation. There is no mitral valve stenosis. Pulmonic Valve The pulmonic valve is likely normal. Tricuspid Valve Normal tricuspid valve structure. There is trace tricuspid valve regurgitation. There is no evidence of pulmonary hypertension. Great Vessels The asc aorta is normal in size. Venous The inferior vena cava is mildly dilated and collapses greater than 50% with inspiration. Pericardium/Pleural There is no evidence of pericardial effusion. Prior Study Comparison No significant change compared to prior study dated: 07/22/2022. (wall motion similar in review of prior images). Recommendations, Care & Conclusions No obvious valvular pathology seen on this study. Measurements 2D Linear Measurements IVSd: 1.31 0.6-0.9/0.6-1.0 cm LVIDd: 6.21 3.9-5.3/4.2-5.9 cm LVIDd Index: 2.49 2.4-3.2/2.2-3.1 cm/m2 LVIDs: 4.61 2.0-3.6 cm LVPWd: 1.01 0.7-1.1 cm LA Diam: 4.30 2.7-3.8/3.0-4.0 cm LAIDs Index: 1.73 1.5-2.3 cm/m2 LV Mass: 396.41 67-162/88-224 g LV Mass Index: 159.20 43-95/49-115 g/m2 LVOT Diam: 2.50 3.0+(-)1.3 cm 2D Systolic Function EF 4C: 49.20 >55% EF 2C: 51.40 >55% EF BiP: 50.00 >55% Mitral Valve MV Pk E: 0.69 MV PK A: 0.79 MV Decel Time: 227.00 E/A: 0.90 E'Lateral: 8.16 E'Medial: 4.90 E/E' Med: 14.20 E/E' Lat: 8.50 PHT: 67.00 MVA PHT: 3.28 Decel [place]: 3.05 Aortic Valve AoV Pk Wiley: 1.63 AoV Mn Wiley: 1.10 AoV VTI: 0.37 AoV Pk Grad: 11.00 Aov Mn Grad: 5.00 CARLINE Cont.VTI: 4.11 AI Pk Wiley: 4.15 AI [place]: 2.13 LVOT LVOT Pk Wiley: 1.40 LVOT Mn Wiley: 0.86 LVOT VTI: 0.31 LVOT Pk Grad: 8.00 LVOT Mn Grad: 3.00 LVOT Diam: 2.50 LVOT Area: 4.91 Diastolic Function MV Pk E: 0.69 MV Pk A: 0.79 E/A: 0.90 E'Medial: 4.90 E/E' Med: 14.20 E' Laterial: 8.16 E/E' Lat: 8.50 Right Ventricle TAPSE (mm): 23.40 TVS' Wiley: 13.80 Tricuspid Valve TR Pk Wiley: 2.39 TR Pk Grad: 23.00 RA Press: 3.00 RVSP: 26.00 Great Vessels Aorta Sinus of Valsalva: 3.60 2.0-3.5 cm Ao Asc: 3.80 2.1-3.4 cm Pulmonary Valve PV Pk Wiley: 0.75 Peak PV Grad: 2.00 Updated in Other Vendor System with Status of Final Vlad Monroe MD electronically signed on 07/17/2023 5:07:43 PM with status of Final
== END ==
LOC: HO.CARD 12:24
PROVIDERS: PCP Internal Medicine; Visit Provider Internal Medicine Cardiovascular Disease
DX: I50.20 Unspecified systolic (congestive) heart failure (principal)
CPT/HCPCS: 93306; Q9957

== ENCOUNTER → 2023-07-15 12:27 | Outpatient (BNV) | payer MEDICARE, MEDICAID, SELFPAY | PROVIDERS: PCP Internal Medicine; Visit Provider Internal Medicine | DX: I50.20 Unspecified systolic (congestive) heart failure (principal); I35.1 Nonrheumatic aortic (valve) insufficiency | CPT/HCPCS: 93306 ==

== ENCOUNTER 2023-08-05 13:29 | Outpatient (AMB) | payer MEDICARE, MEDICAID, SELFPAY ==
[2023-08-05 14:18] VITALS: BP 110/70; PULSE 62; BMI 28.8
--- NOTE | 2023-08-05 14:18 | MHC.OFFVIS ---
Vital Signs 08/05/23 14:18 Height 6 ft 6 in Weight 249 lb 1.957 oz BMI 28.8 BP 110/70 Blood Pressure Location Lt brachial Position Sitting Pulse 62 Intake Visit Reasons: 6 mth f/up w/ device ck and s/p echo Intake Note: 6 month follow-up with [facility] and echo hearts feeling good [employer] Required: No Allergies prednisone [PREDNISONE] Allergy (Unknown, Unverified 12/02/19 15:57) UNKNOWN Medication List - Last Reconciled 08/05/23 by Vikash Mcknight MD amitriptyline 25 mg PO BID apixaban (Eliquis) 5 mg PO BID 90 days carvedilol 50 mg (2 x 25 mg) PO Q12H 90 days finasteride 5 mg PO DAILY furosemide 40 mg PO BID ipratropium-albuterol 0.5 mg-3 mg(2.5 mg base)/3 mL mL inhalation Q4H PRN ivabradine (Corlanor) 5 mg PO BID oxycodone-acetaminophen 5-325 mg 1 tab PO sacubitril-valsartan 97-103 mg (Entresto) 1 tab PO BID 90 days tamsulosin 0.4 mg PO BEDTIME HPI Comments Details: Roger comes for follow-up. He has been doing very well from cardiac perspective. His most recent echocardiogram shows low normal LV ejection fraction with normal LV cavity size with no significant mitral regurgitation with grade 1 diastolic dysfunction. He denies any heart failure symptoms. Denies any orthopnea, PND, leg edema. No prolonged palpitations, irregular heartbeat, syncope, ICD discharge. Takes all his medications regularly. Watches his diet. He exercises regularly with walking and biking. [facility] Medical History ICD (implantable cardioverter-defibrillator) in place Mitral regurgitation Nonischemic cardiomyopathy Heart failure with reduced ejection fraction Surgical History History of permanent cardiac pacemaker placement Hx of cardiac cath Hx of knee surgery Family History Father Sudden cardiac Mother No problems noted. Review of Systems Const Denies chills, Denies fatigue, Denies fever(s), Denies frequent falls, Denies weakness, Denies weight gain and Denies weight loss ENT Denies dizziness Card Denies chest pain, Denies leg edema, Denies lightheadedness, Denies palpitations, Denies dyspnea, Denies dyspnea on exertion, Denies orthopnea and Denies other (loss of consciousness) Resp Denies cough, Denies dyspnea and Denies dyspnea on exertion GI Denies hematochezia and Denies change in stool character Musc Denies abnormal gait, Denies muscle weakness, Denies numbness, Denies radiating pain into limb and Denies tingling Neuro Denies abnormal gait, Denies dizziness, Denies frequent falls, Denies numbness, Denies tingling and Denies weakness Endo Denies fatigue and Denies palpitations Physical Exam Vital Signs: Last Vital Signs Pulse 62 08/05/23 14:18 BP 110/70 08/05/23 14:18 BMI result Body Mass Index 28.8 Const General: cooperative, no acute distress, alert and awake Nutritional Appearance: overweight Orientation/consciousness: patient oriented x3 Limitations: no limitations Neck Neck: Yes trachea midline, Yes supple and Yes no JVD Resp Effort & Inspection: normal respiratory effort Auscultation: clear to auscultation bilaterally Cardio Jugular venous distension: no JVD Palpation: abnormal PMI displaced PMI Rate: regular rate Rhythm: regular rhythm Heart sounds: S1 normal heart sound present and S2 normal heart sound present GI Auscultation: normal bowel sounds Skin General skin exam: no rashes or lesions noted Neuro General: patient oriented x3 and no focal motor deficits Extrem General: Yes no clubbing, cyanosis or edema Psych Appearance: grossly normal Office Procedures Cardiac Device Check Cardiac Device Check Details: Single-chamber [facility] ICD in place. Programmed in VVI at 40 beats per minute. Ventricular capture thresholds excellent. Ventricular sensing is excellent. Pacing and shock lead impedance is stable. Battery life is at 3.4 years. No significant arrhythmias noted [id number] Cardiac Device Check, single lead implantable defibrillator Procedure code (CPT) selection complete Assessment & Plan Assessment & Plan (1) Heart failure with reduced ejection fraction: Code(s): I50.20 - Unspecified systolic (congestive) heart failure Category: Medical Plan: Heart failure with reduced ejection fraction with severe cardiomyopathy and dilated LV which has improved with medical therapy with normalized LV systolic function normalized mitral regurgitation. His LV ejection fraction is now in the low-normal range. Continue aggressively neurohormonal modulation with carvedilol, Entresto, Corlanor therapy. Continue current diuretic does with Lasix. Clinically euvolemic and well compensated. Encouraged to continue to participate in physical activity as tolerated. (2) PAF (paroxysmal atrial fibrillation): Comment: high suspicion on remote ICD monitoring Code(s): I48.0 - Paroxysmal atrial fibrillation Category: Medical Plan: Paroxysmal atrial fibrillation remained suppressed on current therapy. Continue carvedilol therapy. Avoidance of stimulants was discussed. Advised to call me with any significant symptoms of palpitation. Continue current full oral anticoagulation with atrial fibrillation. At risk for recurrent atrial fibrillation given his left atrial enlargement although does not require any antiarrhythmic drug therapy at this point time. (3) ICD (implantable cardioverter-defibrillator) in place: Code(s): Z95.810 - Presence of automatic (implantable) cardiac defibrillator Category: Medical Plan: ICD in place for primary prevention. Will continue monitor remotely for heart failure as well as device function. Follow up in the clinic in 6 months time, sooner p.r.n.. Thank you for allowing me to partake in his care Coding Level of Care Code Est Pt Level 4 (78168) Diagnoses Heart failure with reduced ejection fraction I50.20 PAF (paroxysmal atrial fibrillation) I48.0 ICD (implantable cardioverter-defibrillator) in place Z95.810 CPT Codes Cardiac Device Check - Cardiac Device 4: [id number] Cardiac Device Check, single lead implantable defibrillator ([id number])
== END 2023-08-05 14:47 | disposition home or self-care (01) ==
PROVIDERS: PCP Internal Medicine; Visit Provider Internal Medicine Cardiovascular Disease
DX: I50.20 Unspecified systolic (congestive) heart failure (principal); I48.0 Paroxysmal atrial fibrillation; Z95.810 Presence of automatic (implantable) cardiac defibrillator
CPT/HCPCS: 93282; 99214

== ENCOUNTER → 2023-08-05 13:29 | Outpatient (BNVA) | payer MEDICARE, MEDICAID, SELFPAY | PROVIDERS: PCP Internal Medicine; Visit Provider Internal Medicine Cardiovascular Disease | DX: Z45.02 Encounter for adjustment and management of automatic implantable cardiac defibrillator (principal); I50.20 Unspecified systolic (congestive) heart failure; I48.0 Paroxysmal atrial fibrillation | CPT/HCPCS: 99212 ==

== ENCOUNTER → 2023-08-23 23:59 | Outpatient (BNV) | payer MEDICARE, MEDICAID, SELFPAY ==
--- NOTE | 2023-08-26 12:38 | A.OFFVIS_ITS ---
Intake Visit Reasons: Remote ICd Check- [facility] Allergies prednisone [PREDNISONE] Allergy (Unknown, Unverified 12/02/19 15:57) UNKNOWN [facility] Medical History ICD (implantable cardioverter-defibrillator) in place Mitral regurgitation Nonischemic cardiomyopathy Heart failure with reduced ejection fraction Surgical History History of permanent cardiac pacemaker placement Hx of cardiac cath Hx of knee surgery Family History Father Sudden cardiac Mother No problems noted. Office Procedures Cardiac Device Check Cardiac Device Check Details: Remote ICD report generated on 08/23/2023. ICD function is adequate [id number] Cardiac Interrogation, implant defibrillator w/interim Procedure code (CPT) selection complete Assessment & Plan Assessment & Plan (1) ICD (implantable cardioverter-defibrillator) in place: Code(s): Z95.810 - Presence of automatic (implantable) cardiac defibrillator Category: Medical Plan: see above Coding Level of Care Code Procedure Only Diagnoses ICD (implantable cardioverter-defibrillator) in place Z95.810 CPT Codes Cardiac Device Check - Cardiac Device 13: [id number] Cardiac Interrogation, im plant defibrillator w/interim ([id number])
== END ==
PROVIDERS: PCP Internal Medicine; Visit Provider Internal Medicine Cardiovascular Disease
DX: Z45.02 Encounter for adjustment and management of automatic implantable cardiac defibrillator (principal)
CPT/HCPCS: 93295

== ENCOUNTER 2023-09-22 21:16 | Emergency (ER) | payer MEDICARE, MEDICAID, SELFPAY ==
[2023-09-22 21:29] VITALS: BP 130/70; PULSE 64; O2SAT 98
[2023-09-22 21:30] VITALS: BMI 29.1
[2023-09-22 21:54] LABS: MANUAL DIFF FLAG NO
[2023-09-22 21:56] LABS: Basophils Percent Auto 0.2 % (0-2); Eosinophils Percent Auto 0.2 % (0-4); Hematocrit 33.2 % (42.0-52.0); Hemoglobin 11.5 g/dl (14.0-18.0); Imm Gran Abs Auto 0.03 X10*3/uL (0.00-0.03); Imm Gran Pct Auto 0.3 % (0.0-0.4); Lymphocytes Absolute Auto 2.2 X10*3/uL (1.2-4.9); Lymphocytes Percent Auto 24.7 % (20-40); Mean Corpuscular HGB Conc 34.6 g/dl (31.0-36.0); Mean Corpuscular Hemoglobin 29.2 pg (27.0-33.0); Mean Corpuscular Volume 84.3 fL (80.0-98.0); Mean Platelet Volume 9.8 fL (9.4-12.4); Monocytes Absolute Auto 0.8 X10*3/uL (0.1-1.2); Monocytes Percent Auto 9.4 % (2-11); Neutrophils Absolute Auto 5.7 x10*3/uL (2.0-8.3); Neutrophils Percent Auto 65.2 % (45-73); Platelet Count 226 X10*3/uL (160-400); Red Blood Count 3.94 X10*6/uL (4.60-5.80); Red Cell Distribution Width 13.5 % (11.0-16.0); White Blood Count 8.7 X10*3/uL (4.8-10.8)
[2023-09-22 22:17] LABS: Alanine Aminotransferase 12 U/L (0-40); Alkaline Phosphatase 61 U/L (39-117); Anion Gap 13 (12-20); Aspartate Amino Transferase 15 U/L (5-37); Bilirubin Total 0.5 mg/dL (0.0-1.0); Blood Urea Nitrogen 15 mg/dL (9-16); Calcium 8.9 mg/dL (8.4-10.2); Carbon Dioxide 25 mmol/L (22-29); Chloride 94 mmol/L (96-108); Creatinine Clr Calc Pharmacy 85.7; Estimated Glomerular Filt Rate > 60; Glucose Random 83 mg/dL (60-115); Lipase 17 U/L (8-78); Sodium 128 mmol/L (135-145); Total Protein 6.9 g/dL (6.5-8.0)
[2023-09-22 22:34] LABS: Amphetamine Screen Urine Not Detected (Not Detect); Barbiturates, Urine Not Detected (Not Detect); Benzodiazepines Screen Urine Not Detected (Not Detect); Buprenorphine Scr Not Detected (Not Detect); Cannabinoid Screen Urine Not Detected (Not Detect); Cocaine Screen Urine Not Detected (Not Detect); Fentanyl, urine Not Detected (Not Detect); Methadone Screen, Urine Not Detected (Not Detect); Opiate Screen Urine Not Detected (Not Detect); Oxycodone Screen Urine Positive (Not Detect); Phencyclidine Screen Urine Not Detected (Not Detect)
--- NOTE | 2023-09-22 22:48 | ED.PSYCH ---
HPI - Psych General Chief Complaint: Psychiatric Symptoms Stated Complaint: DEPRESSION AND ANXIETY PER EMS Time Seen by Provider: 09/22/23 22:47 Source: patient Mode of arrival: ambulatory Limitations: no limitations History of Present Illness ED Provider: jackelin HPI Narrative: Patient with history of anxiety/depression has not seen any psychiatrist been more depressed feels anxious unable to sleep for last few nights for multiple reasons denies any SI Related Data Home Medications ?Medication ?Instructions ?Recorded ?Confirmed amitriptyline 25 mg tablet 25 mg PO BID 05/02/20 08/05/23 finasteride 5 mg tablet 5 mg PO DAILY 05/02/20 08/05/23 oxycodone-acetaminophen 5 mg-325 1 tab PO 05/02/20 08/05/23 mg tablet tamsulosin 0.4 mg capsule 0.4 mg PO BEDTIME 05/02/20 08/05/23 furosemide 40 mg tablet 40 mg PO BID 02/01/21 08/05/23 ipratropium 0.5 mg-albuterol 3 mg ml inhalation Q4H PRN 07/31/21 08/05/23 (2.5 mg base)/3 mL nebulization soln Previous Rx's ?Medication ?Instructions ?Recorded apixaban 5 mg tablet (Eliquis) 5 mg PO BID 90 days #180 tabs 02/24/23 carvedilol 25 mg tablet 50 mg (2 x 25 mg) PO Q12H 90 days 04/03/23 #360 tabs sacubitril 97 mg-valsartan 103 mg 1 tab PO BID 90 days #180 tabs 05/27/23 tablet (Entresto) ivabradine 5 mg tablet (Corlanor) 5 mg PO BID #180 tabs 08/29/23 Allergies Allergy/AdvReac Type Severity Reaction Status Date / Time prednisone [PREDNISONE] Allergy Unknown UNKNOWN Verified 09/22/23 21:35 Review of Systems Review of Systems: Yes all other systems are reviewed and are negative PMFSH Past Medical History Medical History ICD (implantable cardioverter-defibrillator) in place Mitral regurgitation Nonischemic cardiomyopathy Heart failure with reduced ejection fraction Surgical History History of permanent cardiac pacemaker placement Hx of cardiac cath Hx of knee surgery Family History Family History Father Sudden cardiac Mother No problems noted. Social History Social History Smoked in Last 30 Days: No Use of substances other than those prescribed or required for medical reasons: No Advance Directives: No Advance Directives Information Provided: No Do you have a plan to hurt others: No Plan Physical Exam Vital Signs: Vital Signs: Last Vital Signs Temp 97.6 F 09/23/23 03:42 Pulse 61 09/23/23 03:42 Resp 17 09/23/23 03:42 BP 112/49 L 09/23/23 03:42 Pulse Ox 95 09/23/23 03:42 O2 Del Method Room Air 09/23/23 03:42 BMI result Body Mass Index 29.1 Appearance: Alert. Oriented X3. No acute distress. Eyes: PERRLA, No Nystagmus ENT: Pharynx normal. Oral Mucosa moist Neck: Normal inspection. Neck supple. CVS: Normal heart rate and rhythm. Pulses normal. Respiratory: No respiratory distress. Equal air entry bilateral, no wheezing/rales/rhonchi Abdomen: Soft and nontender. Bowel sounds are present, no mass palpable, no CVA tenderness Skin: Skin warm and dry. Normal skin color. Normal skin turgor. Extremities: No lower extremity edema. No calf tenderness psych: Normal mood at this time no SI or HI Neuro: Oriented X 3. No motor deficit. No sensory deficit.No cerebellar signs , cranial nerves II-XII intact Medications Administered Discontinued Medications Generic Name Dose Route Start Last Admin Trade Name Freq PRN Reason Stop Dose Admin Lorazepam 1 mg 09/22/23 23:10 09/22/23 23:51 Lorazepam 1 Mg Tablet PO 09/22/23 23:11 1 mg ONCE ONE Administration Medical Decision Making Medical Decision Making MDM Narrative: Patient has significant depression anxiety will consult care team for further evaluation Lab Data 09/22/23 21:50 09/22/23 21:50 Labs: Lab Results 09/22/23 09/22/23 Range/Units 21:50 22:16 WBC 8.7 (4.8-10.8) X10*3/uL RBC 3.94 L (4.60-5.80) X10*6/uL Hgb 11.5 L (14.0-18.0) g/dl Hct 33.2 L (42.0-52.0) % MCV 84.3 (80.0-98.0) fL MCH 29.2 (27.0-33.0) pg MCHC 34.6 (31.0-36.0) g/dl RDW 13.5 (11.0-16.0) % Plt Count 226 (160-400) X10*3/uL MPV 9.8 (9.4-12.4) fL Immature Gran % (Auto) 0.3 (0.0-0.4) % Neut % (Auto) 65.2 (45-73) % Lymph % (Auto) 24.7 (20-40) % [place] % (Auto) 9.4 (2-11) % Eos % (Auto) 0.2 (0-4) % Baso % (Auto) 0.2 (0-2) % Lymph # (Auto) 2.2 (1.2-4.9) X10*3/uL [place] # (Auto) 0.8 (0.1-1.2) X10*3/uL Eos # (Auto) 0.0 (0.0-0.4) X10*3/uL Baso # (Auto) 0.0 (0.0-0.2) X10*3/uL Abs Immat Gran (auto) 0.03 (0.00-0.03) X10*3/uL Absolute Neuts (auto) 5.7 (2.0-8.3) x10*3/uL Absolute Nucleated RBC 0.000 (0.0-0.012) X10*3/uL Nucleated RBC % (auto) 0.0 (0.0-0.2) /100WBC Sodium 128 L (135-145) mmol/L Potassium 4.0 (3.3-5.1) mmol/L Chloride 94 L (96-108) mmol/L Carbon Dioxide 25 (22-29) mmol/L Anion Gap 13 (12-20) BUN 15 (9-16) mg/dL Creatinine 1.14 (0.5-1.4) mg/dL Estim Creat Clear Calc 85.7 Estimated GFR > 60 Random Glucose 83 (60-115) mg/dL Calcium 8.9 (8.4-10.2) mg/dL Total Bilirubin 0.5 (0.0-1.0) mg/dL AST 15 (5-37) U/L ALT 12 (0-40) U/L Alkaline Phosphatase 61 (39-117) U/L Total Protein 6.9 (6.5-8.0) g/dL Albumin 4.0 (3.5-5.0) g/dL Lipase 17 (8-78) U/L Urine Opiates Screen Not Detected (Not Detect) Ur Buprenorphine Scrn Not Detected (Not Detect) ng/mL Ur Oxycodone Screen Positive H (Not Detect) ng/mL Urine Methadone Screen Not Detected (Not Detect) ng/mL Urine Fentanyl Screen Not Detected (Not Detect) Ur Barbiturates Screen Not Detected (Not Detect) Ur Phencyclidine Scrn Not Detected (Not Detect) Ur Amphetamines Screen Not Detected (Not Detect) U Benzodiazepines Scrn Not Detected (Not Detect) Urine Cocaine Screen Not Detected (Not Detect) U Marijuana (THC) Screen Not Detected (Not Detect) Discharge Plan Discharge Clinical Impression: Acute anxiety, Depression Patient Disposition: Still a Patient Prescriptions: No Action Eliquis 5 mg tablet 5 mg PO BID 90 Days Qty: 180 3RF carvedilol 25 mg tablet 50 mg PO Q12H 90 Days Qty: 360 3RF Entresto 97-103 mg tablet 1 tab PO BID 90 Days Qty: 180 3RF Corlanor 5 mg tablet 5 mg PO BID Qty: 180 3RF finasteride 5 mg tablet 5 mg PO DAILY oxycodone-acetaminophen 5-325 mg tablet 1 tab PO amitriptyline 25 mg tablet 25 mg PO BID tamsulosin 0.4 mg capsule 0.4 mg PO BEDTIME furosemide 40 mg tablet 40 mg PO BID Rx Instructions: 40mg am and 1/2 pm ipratropium-albuterol 0.5 mg-3 mg(2.5 mg base)/3 mL solution for nebulization inhalation Q4H PRN Interventions: [place]-Suicide Risk Severity Scale Last Done: 09/22/23 21:30 Print Language: Kinyarwanda
[2023-09-22] MEDS: LORazepam 1 MG TABLET PO (23:51)
[2023-09-23 00:33] VITALS: BP 102/45; PULSE 62; RESP 16; TEMP 36.3; O2SAT 95
[2023-09-23 03:42] VITALS: BP 112/49; PULSE 61; RESP 17; TEMP 36.4; O2SAT 95
[2023-09-23 08:20] VITALS: BP 98/55; PULSE 54; RESP 16; O2SAT 93
--- NOTE | 2023-09-23 09:13 | PC.NURSE ---
pt speaking w/ care team at this time. plan of care ongoing.
[2023-09-23 10:09] VITALS: BP 98/55; PULSE 54; RESP 16; TEMP 36.4; O2SAT 93
--- NOTE | 2023-09-23 11:50 | MHC.CARE ---
RAD team completed an [facility] referral for this individual. Will follow up tomorrow to confirm someone has reached out to him or his case has been assigned.
== END 2023-09-23 10:10 | disposition home or self-care (01) ==
PROVIDERS: Emergency Provider Internal Medicine; PCP Internal Medicine
DX: F33.1 Major depressive disorder, recurrent, moderate (principal); F41.1 Generalized anxiety disorder; F43.0 Acute stress reaction; Z79.899 Other long term (current) drug therapy; Z51.81 Encounter for therapeutic drug level monitoring
CPT/HCPCS: 36415; 80053; 80307; 83690; 85025; 99284; S9485

== ENCOUNTER 2023-09-24 11:53 | Emergency (ER) | payer MEDICARE, MEDICAID, SELFPAY ==
--- NOTE | ~2023-09-24 | XR_ITS ---
EXAMINATION: XR CHEST CLINICAL INFORMATION: Shortness of breath COMPARISON: 05/21/2019 TECHNIQUE: 2 views of the chest were obtained. FINDINGS: The lungs are hyperaerated consistent with emphysematous change. No acute infiltrates. Heart and pulmonary vessels normal. No evidence for congestive failure. There is a left-sided pacer with distal tip directed towards the right ventricular apex. XR/XR chest 2V IMPRESSION: No active disease.
[2023-09-24 11:59] VITALS: BP 164/86; PULSE 61; O2SAT 95
[2023-09-24 12:10] VITALS: BP 140/71; PULSE 64; RESP 18; TEMP 36.5; O2SAT 98; BMI 29.1
--- NOTE | 2023-09-24 12:30 | PC.NURSE ---
Pt presents to ED via EMS from [facility] in [place]. Pt was here at [facility] recently for SI and anxiety. Pt presented to [facility] today for feelings of SI and anxiety, reports he hasn't been able to sleep or eat. Also had some feelings of SOB while at [facility] that has resolved. Pt is alert and oriented, calm and cooperative. Breathing even and unlabored, skin warm and dry. Denies pain. Pt denies any SI at this time, reports those feelings have resolved. Changed over by security, belongings secured in pod.
--- NOTE | 2023-09-24 12:42 | PC.NURSE ---
[facility] number in [facility]: [phone], says they want to know when he is all cleared here
--- NOTE | 2023-09-24 12:57 | ED_ITS ---
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 He lives alone in his own apartment in an elderly housing complex. Apparently he has been having problems with anxiety over the past couple of weeks. This is apparently a new problem for him. He thinks that this may have been precipitated by the severe heat wave. He says that he feels very anxious to the point where he is unable to sleep. Apparently 3 nights ago he tried to stay at a hotel because he did not feel like he wanted to stay in his own apartment. Staying at the hotel however did not help his symptoms and he came to the emergency room 2 days ago. Spent the night in the emergency room in yesterday morning was seen by the care team. He was judged to be safe for discharge and was discharged in the middle of the day. After returning to his apartment yesterday afternoon he continued to feel profoundly anxious and unable to sleep. This morning he contacted [facility] been explained he was doing poorly. [facility] has a apparently found a respite bed for him. He was sent to the emergency room for medical clearance before going to a [facility] respite. The patient is very vague when asked about physical symptoms. He has not really giving any clear history of chest pain or shortness of breath or nausea or vomiting but he gives very equivocal answers when asked about any specific symptoms. The patient has a history of paroxysmal atrial fibrillation. He is on apixaban. Related Data Home Medications ?Medication ?Instructions ?Recorded ?Confirmed amitriptyline 25 mg tablet 25 mg PO BID 05/02/20 08/05/23 finasteride 5 mg tablet 5 mg PO DAILY 05/02/20 08/05/23 oxycodone-acetaminophen 5 mg-325 1 tab PO 05/02/20 08/05/23 mg tablet tamsulosin 0.4 mg capsule 0.4 mg PO BEDTIME 05/02/20 08/05/23 furosemide 40 mg tablet 40 mg PO BID 02/01/21 08/05/23 ipratropium 0.5 mg-albuterol 3 mg ml inhalation Q4H PRN 07/31/21 08/05/23 (2.5 mg base)/3 mL nebulization soln Previous Rx's ?Medication ?Instructions ?Recorded apixaban 5 mg tablet (Eliquis) 5 mg PO BID 90 days #180 tabs 02/24/23 carvedilol 25 mg tablet 50 mg (2 x 25 mg) PO Q12H 90 days 04/03/23 #360 tabs sacubitril 97 mg-valsartan 103 mg 1 tab PO BID 90 days #180 tabs 05/27/23 tablet (Entresto) ivabradine 5 mg tablet (Corlanor) 5 mg PO BID #180 tabs 08/29/23 Allergies Allergy/AdvReac Type Severity Reaction Status Date / Time prednisone [PREDNISONE] Allergy Unknown UNKNOWN Verified 09/24/23 12:11 Review of Systems 2 Review of Systems: Yes all other systems are reviewed and are negative [facility] Past Medical History Medical History ICD (implantable cardioverter-defibrillator) in place Mitral regurgitation Nonischemic cardiomyopathy Heart failure with reduced ejection fraction Surgical History History of permanent cardiac pacemaker placement Hx of cardiac cath Hx of knee surgery Family History Family History Father Sudden cardiac Mother No problems noted. Social History Social History Smoked in Last 30 Days: No Use of substances other than those prescribed or required for medical reasons: No Advance Directives: No Advance Directives Information Provided: Yes Physical Exam ED Vital Signs: Vital Signs - 24 hr 09/24/23 12:10 09/24/23 15:30 09/24/23 15:32 Temperature 97.7 F 97.5 F 97.5 F Pulse Rate 64 75 75 Respiratory Rate 18 16 16 Blood Pressure 140/71 H 142/70 H 142/70 H Pulse Oximetry 98 96 96 Oxygen Delivery Method Room Air Room Air Room Air BMI result Body Mass Index 29.1 Const Other: The patient is a tall, slim looking 72-year-old who is awake and alert. Does not seem in any obvious distress. He does not seem short of breath or in discomfort. HENMT Other: Face is symmetrical. Mucous membranes moist. Eyes Other: Pupils are round equal, conjunctivae are clear Cardio Rate: regular rate Rhythm: regular rhythm Heart sounds: S1 normal heart sound present and S2 normal heart sound present GI Other: Abdomen is soft and nontender Skin Other: Skin is dry and unremarkable Neuro Other: The patient is awake and alert. Cranial nerves 2-12 are intact. He moves his extremities normally and appropriately. Coordination is normal. Gait is steady. He is neurologically intact. Extrem Other: No peripheral edema. No calf swelling or tenderness. No asymmetry. Medical Decision Making Medical Decision Making [facility] Narrative: The patient is a 72-year-old male who was discharged from the emergency room yesterday after presenting with a complaint of anxiety. He was not felt to require inpatient psychiatric care. After returning home yesterday he again felt very anxious and could not sleep last night. He contacted the [facility]. Apparently they have arranged for him to have a respite bed today. They wanted him to come to the emergency room for medical clearance before taking him in at respite. The patient currently looks well. He has in a sinus rhythm. His chest x-ray is clear. Labs are unremarkable. He looks well. I think he is medically clear to stay at respite. Attacks he will be arranged to get him to respite. A friend will stop at his house to lemon picker his medications. Lab Data 09/24/23 13:50 09/24/23 13:50 Labs: Lab Results 09/24/23 09/24/23 Range/Units 13:50 14:18 WBC 9.3 (4.8-10.8) X10*3/uL RBC 4.29 L (4.60-5.80) X10*6/uL Hgb 12.3 L (14.0-18.0) g/dl Hct 36.7 L (42.0-52.0) % MCV 85.5 (80.0-98.0) fL MCH 28.7 (27.0-33.0) pg MCHC 33.5 (31.0-36.0) g/dl RDW 13.7 (11.0-16.0) % Plt Count 250 (160-400) X10*3/uL MPV 10.1 (9.4-12.4) fL Immature Gran % (Auto) 0.2 (0.0-0.4) % Neut % (Auto) 69.3 (45-73) % Lymph % (Auto) 21.9 (20-40) % [place] % (Auto) 8.2 (2-11) % Eos % (Auto) 0.2 (0-4) % Baso % (Auto) 0.2 (0-2) % Lymph # (Auto) 2.0 (1.2-4.9) X10*3/uL [place] # (Auto) 0.8 (0.1-1.2) X10*3/uL Eos # (Auto) 0.0 (0.0-0.4) X10*3/uL Baso # (Auto) 0.0 (0.0-0.2) X10*3/uL Abs Immat Gran (auto) 0.02 (0.00-0.03) X10*3/uL Absolute Neuts (auto) 6.4 (2.0-8.3) x10*3/uL Absolute Nucleated RBC 0.000 (0.0-0.012) X10*3/uL Nucleated RBC % (auto) 0.0 (0.0-0.2) /100WBC Sodium 130 L (135-145) mmol/L Potassium 4.7 (3.3-5.1) mmol/L Chloride 96 (96-108) mmol/L Carbon Dioxide 26 (22-29) mmol/L Anion Gap 13 (12-20) BUN 15 (9-16) mg/dL Creatinine 1.15 (0.5-1.4) mg/dL Estim Creat Clear Calc 85.0 Estimated GFR > 60 Random Glucose 100 (60-115) mg/dL Calcium 9.1 (8.4-10.2) mg/dL Magnesium 2.2 (1.6-2.6) mg/dL Total Bilirubin 0.5 (0.0-1.0) mg/dL Direct Bilirubin 0.2 (0.0-0.5) mg/dL AST 18 (5-37) U/L ALT 14 (0-40) U/L Alkaline Phosphatase 65 (39-117) U/L Troponin I High Sens 12.4 (<3.5-35.0) ng/L C-Reactive Protein 0.37 (< or = 0.50) mg/dL B-Natriuretic Peptide 18 (<100) pg/mL Total Protein 7.2 (6.5-8.0) g/dL Albumin 4.2 (3.5-5.0) g/dL Urine Color Yellow Urine Appearance Clear Urine pH 5.5 (5.0-9.0) Ur Specific [place] 1.010 (1.005-1.025) Urine Protein Negative (Neg-Trace) mg/dL Urine Glucose (UA) Negative (Negative) mg/dL Urine Ketones Trace (Negative) mg/dL Urine Blood Negative (Negative) Urine Nitrite Negative (Negative) Ur Leukocyte Esterase Negative (Negative) Urine Opiates Screen Not Detected (Not Detect) Ur Buprenorphine Scrn Not Detected (Not Detect) ng/mL Ur Oxycodone Screen Positive H (Not Detect) ng/mL Urine Methadone Screen Not Detected (Not Detect) ng/mL Urine Fentanyl Screen Not Detected (Not Detect) Ur Barbiturates Screen Not Detected (Not Detect) Ur Phencyclidine Scrn Not Detected (Not Detect) Ur Amphetamines Screen Not Detected (Not Detect) U Benzodiazepines Scrn Not Detected (Not Detect) Urine Cocaine Screen Not Detected (Not Detect) U Marijuana (THC) Screen Not Detected (Not Detect) Ethyl Alcohol < 10 mg/dL Influenza Type A (PCR) NEGATIVE (Negative) Influenza Type B (PCR) NEGATIVE (Negative) RSV RNA Qual (PCR) NEGATIVE (Negative) SARS-CoV-2 RNA (RT-PCR) NEGATIVE (Negative) Independent Interpretation I performed an independent interpretation of an: EKG Interpretation: EKG at 13:36 shows normal sinus rhythm at 64 beats per minute. It is a normal EKG. Discharge Plan Discharge Clinical Impression: Anxiety, Difficulty sleeping Patient Disposition: Xfer Other Transfer Details: [facility] Respite facility Additional Instructions: Please go directly to the Respite facility today. Continue your regular medications. Please plan on also following up with your regular doctor. Prescriptions: No Action Eliquis 5 mg tablet 5 mg PO BID 90 Days Qty: 180 3RF carvedilol 25 mg tablet 50 mg PO Q12H 90 Days Qty: 360 3RF Entresto 97-103 mg tablet 1 tab PO BID 90 Days Qty: 180 3RF Corlanor 5 mg tablet 5 mg PO BID Qty: 180 3RF finasteride 5 mg tablet 5 mg PO DAILY oxycodone-acetaminophen 5-325 mg tablet 1 tab PO amitriptyline 25 mg tablet 25 mg PO BID tamsulosin 0.4 mg capsule 0.4 mg PO BEDTIME furosemide 40 mg tablet 40 mg PO BID Rx Instructions: 40mg am and 1/2 pm ipratropium-albuterol 0.5 mg-3 mg(2.5 mg base)/3 mL solution for nebulization inhalation Q4H PRN Referrals: [facility] [Outside] (Anxiety, respite) Donaldo Fenton III, MD [Primary Care Provider] - (Anxiety) Interventions: [place]-Suicide Risk Severity Scale Last Done: 09/24/23 12:41 ED Discharge Assessment Last Done: 09/24/23 15:32 Discharge Date/Time: 09/24/23 15:33 Print Language: French
--- NOTE | 2023-09-24 13:20 | ECG_ITS ---
Test Reason : shortness of breath Blood Pressure : / mmHG Vent. Rate : 064 BPM Atrial Rate : 064 BPM P-R Int : 116 ms QRS Dur : 112 ms QT Int : 416 ms P-R-T Axes : 065 058 061 degrees QTc Int : 429 ms Normal sinus rhythm Normal ECG When compared with ECG of 21-MAY-2019 18:40, T wave inversion no longer evident in Anterior leads Referred By: Jeff Madrid Electronically Signed By:Gopal Alatorre
[2023-09-24 13:56] LABS: MANUAL DIFF FLAG NO
[2023-09-24 13:57] LABS: Basophils Percent Auto 0.2 % (0-2); Eosinophils Percent Auto 0.2 % (0-4); Hematocrit 36.7 % (42.0-52.0); Hemoglobin 12.3 g/dl (14.0-18.0); Imm Gran Abs Auto 0.02 X10*3/uL (0.00-0.03); Imm Gran Pct Auto 0.2 % (0.0-0.4); Lymphocytes Percent Auto 21.9 % (20-40); Mean Corpuscular HGB Conc 33.5 g/dl (31.0-36.0); Mean Corpuscular Hemoglobin 28.7 pg (27.0-33.0); Mean Corpuscular Volume 85.5 fL (80.0-98.0); Mean Platelet Volume 10.1 fL (9.4-12.4); Monocytes Absolute Auto 0.8 X10*3/uL (0.1-1.2); Monocytes Percent Auto 8.2 % (2-11); Neutrophils Absolute Auto 6.4 x10*3/uL (2.0-8.3); Neutrophils Percent Auto 69.3 % (45-73); Platelet Count 250 X10*3/uL (160-400); Red Blood Count 4.29 X10*6/uL (4.60-5.80); Red Cell Distribution Width 13.7 % (11.0-16.0); White Blood Count 9.3 X10*3/uL (4.8-10.8)
[2023-09-24 14:14] LABS: Alanine Aminotransferase 14 U/L (0-40); Albumin Level 4.2 g/dL (3.5-5.0); Alkaline Phosphatase 65 U/L (39-117); Anion Gap 13 (12-20); Aspartate Amino Transferase 18 U/L (5-37); Bilirubin Direct 0.2 mg/dL (0.0-0.5); Bilirubin Total 0.5 mg/dL (0.0-1.0); Blood Urea Nitrogen 15 mg/dL (9-16); C Reactive Protein 0.37 mg/dL (< or = 0.50); Calcium 9.1 mg/dL (8.4-10.2); Carbon Dioxide 26 mmol/L (22-29); Chloride 96 mmol/L (96-108); Estimated Glomerular Filt Rate > 60; Glucose Random 100 mg/dL (60-115); Magnesium 2.2 mg/dL (1.6-2.6); Potassium 4.7 mmol/L (3.3-5.1); Sodium 130 mmol/L (135-145); Total Protein 7.2 g/dL (6.5-8.0)
[2023-09-24 14:17] LABS: B Type Natriuretic Peptide 18 pg/mL (<100)
[2023-09-24 14:18] LABS: Ethanol < 10 mg/dL
[2023-09-24 14:21] LABS: Troponin-I High Sensitivity 12.4 ng/L (<3.5-35.0)
[2023-09-24 14:25] LABS: Appearance Urine Clear; Color Urine Yellow; Glucose Urine UA Negative (Negative); Leukocyte Esterase Urine Negative (Negative); Nitrite Urine Negative (Negative); PH 5.5 (5.0-9.0); Urine Blood Negative (Negative); Urine Ketones Trace mg/dL (Negative); Urine Protein Negative (Neg-Trace)
[2023-09-24 14:33] LABS: Influenza A PCR NEGATIVE (Negative); Influenza B PCR NEGATIVE (Negative); Resp Syncy Virus RNA Qual PCR NEGATIVE (Negative); SARS COV2 PCR INHOUSE NEGATIVE (Negative)
[2023-09-24 14:35] LABS: Amphetamine Screen Urine Not Detected (Not Detect); Barbiturates, Urine Not Detected (Not Detect); Benzodiazepines Screen Urine Not Detected (Not Detect); Buprenorphine Scr Not Detected (Not Detect); Cannabinoid Screen Urine Not Detected (Not Detect); Cocaine Screen Urine Not Detected (Not Detect); Fentanyl, urine Not Detected (Not Detect); Methadone Screen, Urine Not Detected (Not Detect); Opiate Screen Urine Not Detected (Not Detect); Oxycodone Screen Urine Positive (Not Detect); Phencyclidine Screen Urine Not Detected (Not Detect)
[2023-09-24 15:30] VITALS: BP 142/70; PULSE 75; RESP 16; TEMP 36.4; O2SAT 96
[2023-09-24 15:32] VITALS: BP 142/70; PULSE 75; RESP 16; TEMP 36.4; O2SAT 96
== END 2023-09-24 15:33 | disposition other institution (70) ==
PROVIDERS: Emergency Provider Emergency Medicine; PCP Internal Medicine
DX: R06.02 Shortness of breath (principal); F41.1 Generalized anxiety disorder; G47.00 Insomnia, unspecified; Z51.81 Encounter for therapeutic drug level monitoring; Z79.899 Other long term (current) drug therapy; Z03.818 Encounter for observation for suspected exposure to other biological agents ruled out
CPT/HCPCS: 0241U; 36415; 71046; 80048; 80076; 80307; 81003; 83735; 83880; 84484; 85025; 86140; 93005; 99284; 99285

== ENCOUNTER → 2023-09-24 13:20 | Outpatient (BNV) | payer MEDICARE, MEDICAID, SELFPAY | PROVIDERS: Emergency Provider Emergency Medicine; PCP Internal Medicine; Visit Provider Internal Medicine Cardiovascular Disease | DX: R06.02 Shortness of breath (principal) | CPT/HCPCS: 93010 ==

== ENCOUNTER 2023-10-03 05:35 | Emergency (ER) | payer MEDICARE, MEDICAID, SELFPAY ==
--- NOTE | ~2023-10-03 | XR_ITS ---
EXAMINATION: XR CHEST CLINICAL INFORMATION: Shortness of breath COMPARISON: September 24, 2023 TECHNIQUE: 2 views of the chest were obtained. FINDINGS: No significant abnormality is noted involving the heart, lungs, mediastinum, bony thorax or soft tissues. Unipolar pacemaker in place. XR/XR chest 2V IMPRESSION: No acute disease.
[2023-10-03 05:53] VITALS: BP 110/78; PULSE 60; O2SAT 97
[2023-10-03 06:15] VITALS: BP 97/50; PULSE 62; RESP 16; TEMP 37; O2SAT 96
[2023-10-03 06:22] VITALS: BP 117/63; BMI 29.9
[2023-10-03 06:29] VITALS: BP 117/63; PULSE 59; RESP 20; O2SAT 95
[2023-10-03] MEDS: Albuterol/Iprat 2.5/0.5MG 3 ML AMPUL.NEB INHALE (08:35)
[2023-10-03 08:39] VITALS: PULSE 60; RESP 17; O2SAT 95
--- NOTE | 2023-10-03 08:59 | ED.ANXIETY ---
HPI - Anxiety General Chief Complaint: Anxiety Stated Complaint: sob anxiety Time Seen by Provider: 10/03/23 07:59 Source: patient Mode of arrival: ambulatory History of Present Illness ED Provider: Dr Waggoner HPI narrative: 72-year-old male, significant medical history but comes in with concerns for anxiety and panic attacks since being released from his respite accommodations. He denies any SI/HI or AVH Related Data Home Medications ?Medication ?Instructions ?Recorded ?Confirmed amitriptyline 25 mg tablet 25 mg PO BID 05/02/20 08/05/23 finasteride 5 mg tablet 5 mg PO DAILY 05/02/20 08/05/23 oxycodone-acetaminophen 5 mg-325 1 tab PO 05/02/20 08/05/23 mg tablet tamsulosin 0.4 mg capsule 0.4 mg PO BEDTIME 05/02/20 08/05/23 furosemide 40 mg tablet 40 mg PO BID 02/01/21 08/05/23 ipratropium 0.5 mg-albuterol 3 mg ml inhalation Q4H PRN 07/31/21 08/05/23 (2.5 mg base)/3 mL nebulization soln Previous Rx's ?Medication ?Instructions ?Recorded apixaban 5 mg tablet (Eliquis) 5 mg PO BID 90 days #180 tabs 02/24/23 carvedilol 25 mg tablet 50 mg (2 x 25 mg) PO Q12H 90 days 04/03/23 #360 tabs sacubitril 97 mg-valsartan 103 mg 1 tab PO BID 90 days #180 tabs 05/27/23 tablet (Entresto) ivabradine 5 mg tablet (Corlanor) 5 mg PO BID #180 tabs 08/29/23 hydroxyzine HCl 50 mg tablet 50 mg PO BEDTIME #10 tabs 10/03/23 Allergies Allergy/AdvReac Type Severity Reaction Status Date / Time prednisone [PREDNISONE] Allergy Unknown UNKNOWN Verified 10/03/23 06:25 Review of Systems Review of Systems: Pertinent positives and negatives as stated in HPI [facility] Past Medical History Source: nursing notes reviewed Medical History ICD (implantable cardioverter-defibrillator) in place Mitral regurgitation Nonischemic cardiomyopathy Heart failure with reduced ejection fraction Surgical History History of permanent cardiac pacemaker placement Hx of cardiac cath Hx of knee surgery Family History Family History Father Sudden cardiac Mother No problems noted. Social History Social History Advance Directives: No Advance Directives Information Provided: Yes Do you have a plan to hurt others: No Plan Physical Exam Vital Signs: Vital Signs: Last Vital Signs Temp 98.6 F 10/03/23 06:15 Pulse 60 10/03/23 08:39 Resp 17 10/03/23 08:39 BP 117/63 10/03/23 06:29 Pulse Ox 95 10/03/23 06:29 O2 Del Method Room Air 10/03/23 06:29 BMI result Body Mass Index 29.9 VITAL SIGNS: Reviewed. GENERAL: Well developed, well nourished, in no acute distress. HEAD: Normocephalic/atraumatic EYES: PERRLA, EOMI EARS: Ext canals without abnormality NOSE: Nares patent bilateral OROPHARYNX: no oral lesions noted, posterior pharynx clear NECK: Supple, no adenopathy LUNGS: Normal breath sounds. No adventitious sounds or accessory muscle use. SpO2<95> CARDIOVASCULAR: Regular rate and rhythm without noted murmurs, no JVD or lower extremity edema. ABDOMEN: Soft, non-tender, non-distended with bowel sounds. MUSCULOSKELETAL: No tenderness, deformities, or effusions noted on gross inspection. EXTREMITIES: No cyanosis, clubbing or edema. SKIN: Inspection of the skin reveals no rashes NEUROLOGIC: Alert and oriented x 4. Strength and sensation to light touch were grossly intact x 4. Medications Administered Discontinued Medications Generic Name Dose Route Start Last Admin Trade Name Freq PRN Reason Stop Dose Admin Albuterol/Ipratropium 3 ml 10/03/23 08:11 10/03/23 08:35 Albuterol/Iprat 2.5/0.5mg 3 Ml Ampul.Neb INHALE 10/03/23 08:12 3 ml ONCE ONE Administration Medical Decision Making Medical Decision Making MDM Narrative: 72-year-old male with history of anxiety and PTSD, I have no concerns for COPD exacerbation, pneumonia or cardiac complications. Patient is otherwise oxygenating well, not tachypneic, not hypoxic but will be offered a DuoN[facility] treatment, patient states he has been taking all medications as prescribed. I have no acute psychological concerns for this patient, chest x-ray without evidence of infiltrate or venous congestion, will receive 50 mg of hydroxyzine and be discharged with instructions to follow-up with [facility] and discussion regarding possible placement back in respite in the outpatient setting. Differential Diagnosis Differential Diagnoses: The differential diagnosis associated with the presentation includes Please see the discussion above Admission/Observation Consideration of admission/observation: Escalation of care including admission/observation considered Please see the discussion above Radiology Impression Discussion of test interpretation with radiology: I have reviewed the radiologist's reading. Radiologist Impression: Please see the discussion above External Record Review External record reviewed: Outpatient record, Prior outpatient labs and Prior outpatient radiology Critical Care Time Critical Care Time Critical Care Time: Yes Total Critical Care Time: 30 Attestation: I personally attest to this time spent taking care of the patient. Discharge Plan Discharge Clinical Impression: Anxiety, Panic attack Patient Disposition: Home, Self-Care Instructions: Anxiety (ED), Panic Attack (ED) Additional Instructions: Please take the prescribed medication approximately 1 hour before you plan to sleep. You can then take it as needed throughout the day for anxiety. Return to the ER for any worsening symptoms. Prescriptions: New hydroxyzine HCl 50 mg tablet 50 mg PO BEDTIME Qty: 10 0RF No Action Eliquis 5 mg tablet 5 mg PO BID 90 Days Qty: 180 3RF carvedilol 25 mg tablet 50 mg PO Q12H 90 Days Qty: 360 3RF Entresto 97-103 mg tablet 1 tab PO BID 90 Days Qty: 180 3RF Corlanor 5 mg tablet 5 mg PO BID Qty: 180 3RF finasteride 5 mg tablet 5 mg PO DAILY oxycodone-acetaminophen 5-325 mg tablet 1 tab PO amitriptyline 25 mg tablet 25 mg PO BID tamsulosin 0.4 mg capsule 0.4 mg PO BEDTIME furosemide 40 mg tablet 40 mg PO BID Rx Instructions: 40mg am and 1/2 pm ipratropium-albuterol 0.5 mg-3 mg(2.5 mg base)/3 mL solution for nebulization inhalation Q4H PRN Print Language: Citizen Of [place]
[2023-10-03] MEDS: hydrOXYzine HCL 50 MG TABLET PO (09:35)
--- NOTE | 2023-10-03 09:36 | PC.NURSE ---
medication administered per provider order.
[2023-10-03 09:38] VITALS: BP 117/63; PULSE 60; RESP 17; TEMP 37; O2SAT 95
== END 2023-10-03 09:39 | disposition home or self-care (01) ==
PROVIDERS: Emergency Provider Student in an Organized Health Care Education/Training Program
DX: F41.9 Anxiety disorder, unspecified (principal); F41.0 Panic disorder [episodic paroxysmal anxiety]; R06.02 Shortness of breath; I48.0 Paroxysmal atrial fibrillation; Z79.01 Long term (current) use of anticoagulants; Z79.899 Other long term (current) drug therapy
CPT/HCPCS: 71046; 94640; 99283; 99284

== ENCOUNTER → 2023-11-22 23:59 | Outpatient (BNV) | payer MEDICARE, MEDICAID, SELFPAY ==
--- NOTE | 2023-11-26 15:38 | A.OFFVIS_ITS ---
Intake Visit Reasons: Remote ICD Check- [facility] [place] Allergies prednisone [PREDNISONE] Allergy (Unknown, Verified 10/03/23 06:25) UNKNOWN [facility] Medical History ICD (implantable cardioverter-defibrillator) in place Mitral regurgitation Nonischemic cardiomyopathy Heart failure with reduced ejection fraction Surgical History History of permanent cardiac pacemaker placement Hx of cardiac cath Hx of knee surgery Family History Father Sudden cardiac Mother No problems noted. Social History Advance Directives: No Advance Directives Information Provided: Yes Do you have a plan to hurt others: No Plan Office Procedures Cardiac Device Check Cardiac Device Check Details: Remote ICD report generated 11/22/2023. ICD function is adequate [id number] Cardiac Interrogation, implant defibrillator w/interim Procedure code (CPT) selection complete Assessment & Plan Assessment & Plan (1) ICD (implantable cardioverter-defibrillator) in place: Code(s): Z95.810 - Presence of automatic (implantable) cardiac defibrillator Category: Medical Plan: See above Coding Level of Care Code Procedure Only Diagnoses ICD (implantable cardioverter-defibrillator) in place Z95.810 CPT Codes Cardiac Device Check - Cardiac Device 13: [id number] Cardiac Interrogation, implant defibrillator w/interim ([id number])
== END ==
PROVIDERS: Visit Provider Internal Medicine Cardiovascular Disease
DX: Z45.02 Encounter for adjustment and management of automatic implantable cardiac defibrillator (principal)
CPT/HCPCS: 93295

== ENCOUNTER → 2023-12-02 23:59 | Outpatient (BNV) | payer MEDICARE, MEDICAID, SELFPAY ==
--- NOTE | 2023-12-04 14:59 | MHC.OFFVIS ---
Intake Visit Reasons: Remote HF monitoring- [facility] Allergies prednisone [PREDNISONE] Allergy (Unknown, Verified 10/03/23 06:25) UNKNOWN COUNT INCLUDES [facility] Medical History ICD (implantable cardioverter-defibrillator) in place Mitral regurgitation Nonischemic cardiomyopathy Heart failure with reduced ejection fraction Surgical History History of permanent cardiac pacemaker placement Hx of cardiac cath Hx of knee surgery Family History Father Sudden cardiac Mother No problems noted. Social History Advance Directives: No Advance Directives Information Provided: Yes Do you have a plan to hurt others: No Plan Office Procedures Cardiac Device Check Cardiac Device Check Details: Remote heart failure report generated 12/02/2023. Heart failure parameters are stable [id number] Cardiac Device Interrogation, cardio physiologic monitor Procedure code (CPT) selection complete Assessment & Plan Assessment & Plan (1) ICD (implantable cardioverter-defibrillator) in place: Code(s): Z95.810 - Presence of automatic (implantable) cardiac defibrillator Category: Medical Plan: See above Coding Level of Care Code Procedure Only Diagnoses ICD (implantable cardioverter-defibrillator) in place Z95.810 CPT Codes Cardiac Device Check - Cardiac Device 15: [id number] Cardiac Device Interrogation, cardio physiologic monitor ([id number])
== END ==
PROVIDERS: Visit Provider Internal Medicine Cardiovascular Disease
DX: Z45.02 Encounter for adjustment and management of automatic implantable cardiac defibrillator (principal)
CPT/HCPCS: 93297

== ENCOUNTER 2023-12-10 02:33 | Emergency (ER) | payer MEDICARE, MEDICAID, SELFPAY ==
[2023-12-10] VITALS (7 sets, daily range): BP systolic 102–154; BP diastolic 43–75; PULSE 57–65; RESP 16–20; TEMP 37–37.6; O2SAT 91–97; BMI 28.7
--- NOTE | 2023-12-10 | ECG_ITS ---
Test Reason : CHEST DISCOMFORT Blood Pressure : / mmHG Vent. Rate : 057 BPM Atrial Rate : 057 BPM P-R Int : 178 ms QRS Dur : 104 ms QT Int : 398 ms P-R-T Axes : 072 057 071 degrees QTc Int : 387 ms Sinus bradycardia Otherwise normal ECG When compared with ECG of 24-SEP-2023 13:36, No significant change was found Referred By: Patricio Heredia Electronically Signed By:TRINH ROBIN
--- NOTE | ~2023-12-10 | XR_ITS ---
EXAMINATION: XR CHEST CLINICAL INFORMATION: Dyspnea. COMPARISON: October 03, 2023. TECHNIQUE: Frontal view of the chest was obtained. FINDINGS: The cardiomediastinal silhouette is stable. A single chamber pacer lead is in place. There is no focal lung consolidation or pleural effusion. The bony structures and the soft tissues are unremarkable. XR/XR chest 1V IMPRESSION: No acute disease. Electronically signed by: Gustavo Kimbrough MD 12/10/2023 03:37 AM EDT
--- NOTE | 2023-12-10 02:56 | ED.SOB ---
HPI - SOB/Dyspnea General Chief Complaint: Dyspnea Stated Complaint: SOB SINCE T-1 90% RA,HOME INH/TX NOT WORKING Time Seen by Provider: 12/10/23 02:49 Source: patient Mode of arrival: ambulatory Limitations: no limitations History of Present Illness ED Provider: jackelin KOCH Narrative: Patient's history of paroxysmal atrial fibrillation COPD CHF comes here for 2 days of increased shortness a breath with wheezing coughing with mucopurulent phlegm used albuterol inhaler at home without much relief history of same last year when he had COPD and flu no fever no chills no other family member sick Related Data Home Medications ?Medication ?Instructions ?Recorded ?Confirmed amitriptyline 25 mg tablet 25 mg PO BID 05/02/20 08/05/23 finasteride 5 mg tablet 5 mg PO DAILY 05/02/20 08/05/23 oxycodone-acetaminophen 5 mg-325 1 tab PO 05/02/20 08/05/23 mg tablet tamsulosin 0.4 mg capsule 0.4 mg PO BEDTIME 05/02/20 08/05/23 furosemide 40 mg tablet 40 mg PO BID 02/01/21 08/05/23 ipratropium 0.5 mg-albuterol 3 mg ml inhalation Q4H PRN 07/31/21 08/05/23 (2.5 mg base)/3 mL nebulization soln Previous Rx's ?Medication ?Instructions ?Recorded apixaban 5 mg tablet (Eliquis) 5 mg PO BID 90 days #180 tabs 02/24/23 carvedilol 25 mg tablet 50 mg (2 x 25 mg) PO Q12H 90 days 04/03/23 #360 tabs sacubitril 97 mg-valsartan 103 mg 1 tab PO BID 90 days #180 tabs 05/27/23 tablet (Entresto) ivabradine 5 mg tablet (Corlanor) 5 mg PO BID #180 tabs 08/29/23 hydroxyzine HCl 50 mg tablet 50 mg PO BEDTIME #10 tabs 10/03/23 benzonatate 200 mg capsule 200 mg PO TID PRN cough #20 caps 12/10/23 cefuroxime axetil 500 mg tablet 500 mg PO BID 7 days #14 tabs 12/10/23 prednisone 20 mg tablet 40 mg (2 x 20 mg) PO DAILY #10 tabs 12/10/23 Allergies Allergy/AdvReac Type Severity Reaction Status Date / Time No Known Allergies Allergy Verified 12/10/23 02:47 Review of Systems Review of Systems: Yes all other systems are reviewed and are negative [facility] Past Medical History Medical History ICD (implantable cardioverter-defibrillator) in place Mitral regurgitation Nonischemic cardiomyopathy Heart failure with reduced ejection fraction Surgical History History of permanent cardiac pacemaker placement Hx of cardiac cath Hx of knee surgery Family History Family History Father Sudden cardiac Mother No problems noted. Social History Social History Advance Directives: No Advance Directives Information Provided: Yes Physical Exam Vital Signs: Vital Signs: Last Vital Signs Temp 99.0 F 12/10/23 06:00 Pulse 62 12/10/23 06:00 Resp 20 12/10/23 06:00 BP 102/43 L 12/10/23 06:00 Pulse Ox 95 12/10/23 06:00 O2 Del Method Room Air 12/10/23 06:00 BMI result Body Mass Index 28.7 Appearance: Alert. Oriented X3. No acute distress. Eyes: No pallor or icterus ENT: Pharynx normal. Oral Mucosa moist Neck: Normal inspection. Neck supple. CVS: Normal heart rate and rhythm. Pulses normal. Respiratory: No respiratory distress. Equal air entry bilateral, prolonged expiration Abdomen: Soft and nontender. Bowel sounds are present, no mass palpable, no CVA tenderness Skin: Skin warm and dry. Normal skin color. Normal skin turgor. Extremities: No lower extremity edema. No calf tenderness Neuro: Oriented X 3. No motor deficit. Medications Administered Discontinued Medications Generic Name Dose Route Start Last Admin Trade Name Freq PRN Reason Stop Dose Admin Albuterol Sulfate 5 mg 12/10/23 05:22 12/10/23 05:37 Albuterol Sulfate (0.083%) 2.5 Mg/3 Ml Vial.Neb INHALE 12/10/23 05:23 5 mg ONCE ONE Administration Albuterol Sulfate 5 mg/ 0 mg 12/10/23 03:10 12/10/23 03:22 Albuterol/Ipratropium 3 ml INHALE 12/10/23 03:11 1 each ONCE ONE Administration Guaifenesin/Codeine Phosphate 10 ml 12/10/23 05:23 12/10/23 05:46 Guaifen/Codeine Sf 200/20/10ml 10 Ml Liquid PO 12/10/23 05:24 10 ml ONCE ONE Administration Methylprednisolone Sodium Succinate 125 mg 12/10/23 03:10 12/10/23 03:20 Methylprednisolone Sod Succ 125 Mg/2 Ml Vial IVPUSH 12/10/23 03:11 125 mg ONCE ONE Administration Medical Decision Making Medical Decision Making [facility] Narrative: Patient with COPD came with increased cough and shortness a breath test positive for COVID improved after nebulizing treatment and steroids will discharge patient home on steroids will give short course of antibiotics Ceftin as he had productive cough for bronchitis chest x-ray negative for pneumonia patient is saturating 95% on room air Differential Diagnosis Differential Diagnoses: The differential diagnosis associated with the presentation includes Pneumonia/chronic bronchitis/COPD/viral pneumonia/COVID Lab Data [facility] Lab Attestation statement: I reviewed the patient's lab results. 12/10/23 02:52 12/10/23 02:52 Labs: Lab Results 12/10/23 12/10/23 Range/Units 02:52 03:36 WBC 9.5 (4.8-10.8) X10*3/uL RBC 4.42 L (4.60-5.80) X10*6/uL Hgb 12.8 L (14.0-18.0) g/dl Hct 39.2 L (42.0-52.0) % MCV 88.7 (80.0-98.0) fL MCH 29.0 (27.0-33.0) pg MCHC 32.7 (31.0-36.0) g/dl RDW 14.0 (11.0-16.0) % Plt Count 210 (160-400) X10*3/uL MPV 10.6 (9.4-12.4) fL Immature Gran % (Auto) 0.2 (0.0-0.4) % Neut % (Auto) 76.4 H (45-73) % Lymph % (Auto) 13.1 L (20-40) % [place]eton % (Auto) 9.5 (2-11) % Eos % (Auto) 0.3 (0-4) % Baso % (Auto) 0.5 (0-2) % Lymph # (Auto) 1.3 (1.2-4.9) X10*3/uL [place]eton # (Auto) 0.9 (0.1-1.2) X10*3/uL Eos # (Auto) 0.0 (0.0-0.4) X10*3/uL Baso # (Auto) 0.1 (0.0-0.2) X10*3/uL Abs Immat Gran (auto) 0.02 (0.00-0.03) X10*3/uL Absolute Neuts (auto) 7.3 (2.0-8.3) x10*3/uL Absolute Nucleated RBC 0.000 (0.0-0.012) X10*3/uL Nucleated RBC % (auto) 0.0 (0.0-0.2) /100WBC Sodium 137 (135-145) mmol/L Potassium 4.8 (3.3-5.1) mmol/L Chloride 103 (96-108) mmol/L Carbon Dioxide 25 (22-29) mmol/L Anion Gap 14 (12-20) BUN 14 (9-16) mg/dL Creatinine 1.42 H (0.5-1.4) mg/dL Estim Creat Clear Calc 67.3 Estimated GFR 49 Random Glucose 95 (60-115) mg/dL Calcium 9.0 (8.4-10.2) mg/dL Total Bilirubin 0.3 (0.0-1.0) mg/dL AST 17 (5-37) U/L ALT 11 (0-40) U/L Alkaline Phosphatase 83 (39-117) U/L Troponin I High Sens 10.3 (<3.5-35.0) ng/L B-Natriuretic Peptide 25 (<100) pg/mL Total Protein 7.4 (6.5-8.0) g/dL Albumin 3.9 (3.5-5.0) g/dL Influenza Type A (PCR) NEGATIVE (Negative) Influenza Type B (PCR) NEGATIVE (Negative) RSV RNA Qual (PCR) NEGATIVE (Negative) SARS-CoV-2 RNA (RT-PCR) POSITIVE A (Negative) Independent Interpretation I performed an independent interpretation of an: Plain X-Ray Radiology Impression Discussion of test interpretation with radiology: I have reviewed the radiologist's reading. Radiologist Impression: No infiltrate Discharge Plan Discharge Clinical Impression: Acute exacerbation of chronic obstructive airways disease, COVID-19 Patient Disposition: Home, Self-Care Instructions: COPD (Chronic Obstructive Pulmonary Disease) (ED), COVID-19 (Coronavirus Disease 2019) (ED) Additional Instructions: Take nebulizer/albuterol treatment every 4-6 hours as needed Prednisone as prescribed Social distancing Cough drops as advised Follow up with PCPs or report to the ER if increased shortness a breath Prescriptions: New benzonatate 200 mg capsule 200 mg PO TID PRN (Reason: cough) Qty: 20 0RF prednisone 20 mg tablet 40 mg PO DAILY Qty: 10 0RF cefuroxime axetil 500 mg tablet 500 mg PO BID 7 Days Qty: 14 0RF No Action Eliquis 5 mg tablet 5 mg PO BID 90 Days Qty: 180 3RF carvedilol 25 mg tablet 50 mg PO Q12H 90 Days Qty: 360 3RF Entresto 97-103 mg tablet 1 tab PO BID 90 Days Qty: 180 3RF Corlanor 5 mg tablet 5 mg PO BID Qty: 180 3RF hydroxyzine HCl 50 mg tablet 50 mg PO BEDTIME Qty: 10 0RF finasteride 5 mg tablet 5 mg PO DAILY oxycodone-acetaminophen 5-325 mg tablet 1 tab PO amitriptyline 25 mg tablet 25 mg PO BID tamsulosin 0.4 mg capsule 0.4 mg PO BEDTIME furosemide 40 mg tablet 40 mg PO BID Rx Instructions: 40mg am and 1/2 pm ipratropium-albuterol 0.5 mg-3 mg(2.5 mg base)/3 mL solution for nebulization inhalation Q4H PRN Print Language: Scottish
[2023-12-10 02:57] LABS: MANUAL DIFF FLAG NO
[2023-12-10 02:58] LABS: Basophils Absolute Auto 0.1 X10*3/uL (0.0-0.2); Basophils Percent Auto 0.5 % (0-2); Eosinophils Percent Auto 0.3 % (0-4); Hematocrit 39.2 % (42.0-52.0); Hemoglobin 12.8 g/dl (14.0-18.0); Imm Gran Abs Auto 0.02 X10*3/uL (0.00-0.03); Imm Gran Pct Auto 0.2 % (0.0-0.4); Lymphocytes Absolute Auto 1.3 X10*3/uL (1.2-4.9); Lymphocytes Percent Auto 13.1 % (20-40); Mean Corpuscular HGB Conc 32.7 g/dl (31.0-36.0); Mean Corpuscular Volume 88.7 fL (80.0-98.0); Mean Platelet Volume 10.6 fL (9.4-12.4); Monocytes Absolute Auto 0.9 X10*3/uL (0.1-1.2); Monocytes Percent Auto 9.5 % (2-11); Neutrophils Absolute Auto 7.3 x10*3/uL (2.0-8.3); Neutrophils Percent Auto 76.4 % (45-73); Platelet Count 210 X10*3/uL (160-400); Red Blood Count 4.42 X10*6/uL (4.60-5.80); White Blood Count 9.5 X10*3/uL (4.8-10.8)
[2023-12-10 03:16] LABS: Alanine Aminotransferase 11 U/L (0-40); Albumin Level 3.9 g/dL (3.5-5.0); Alkaline Phosphatase 83 U/L (39-117); Anion Gap 14 (12-20); Aspartate Amino Transferase 17 U/L (5-37); Bilirubin Total 0.3 mg/dL (0.0-1.0); Blood Urea Nitrogen 14 mg/dL (9-16); Carbon Dioxide 25 mmol/L (22-29); Chloride 103 mmol/L (96-108); Creatinine Clr Calc Pharmacy 67.3; Estimated Glomerular Filt Rate 49; Glucose Random 95 mg/dL (60-115); Potassium 4.8 mmol/L (3.3-5.1); Sodium 137 mmol/L (135-145); Total Protein 7.4 g/dL (6.5-8.0)
[2023-12-10] MEDS: methylPREDNISolone Sod Succ 125 MG/2 ML VIAL IVPUSH (03:20)
[2023-12-10 03:22] LABS: Troponin-I High Sensitivity 10.3 ng/L (<3.5-35.0)
[2023-12-10] MEDS: Albuterol Sulfate 5 MG, Albuterol/Iprat 2.5/0.5MG 3 ML 3 ML INHALE (03:22)
[2023-12-10 03:42] LABS: Influenza A PCR NEGATIVE (Negative); Influenza B PCR NEGATIVE (Negative); Resp Syncy Virus RNA Qual PCR NEGATIVE (Negative); SARS COV2 PCR INHOUSE POSITIVE (Negative)
[2023-12-10 04:12] LABS: B Type Natriuretic Peptide 25 pg/mL (<100)
[2023-12-10] MEDS: Albuterol Sulfate (0.083%) 2.5 MG/3 ML VIAL.NEB 5 MG INHALE (05:37)
[2023-12-10] MEDS: guaiFEN/Codeine SF 200/20/10ML 10 ML LIQUID PO (05:46)
== END 2023-12-10 07:16 | disposition home or self-care (01) ==
PROVIDERS: Emergency Provider Internal Medicine; PCP Internal Medicine
DX: U07.1 COVID-19 (principal); J44.1 Chronic obstructive pulmonary disease with (acute) exacerbation; I48.0 Paroxysmal atrial fibrillation; I50.20 Unspecified systolic (congestive) heart failure; Z79.01 Long term (current) use of anticoagulants; Z79.899 Other long term (current) drug therapy
CPT/HCPCS: 0241U; 36415; 71045; 80053; 83880; 84484; 85025; 93005; 94640; 96374; 99284; J2919

== ENCOUNTER 2024-02-05 14:31 | Outpatient (AMB) | payer MEDICARE, MEDICAID, SELFPAY ==
--- NOTE | 2024-02-05 14:39 | A.OFFVIS_ITS ---
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 Will months ago he had bad bronchitis, came down with COVID and flu at the same time. He took 2 weeks to recover. No clear heart decompensation at that point time. Was not admitted. He has overall done well from heart perspective. He is back to his original functional status. Continues to maintain activity level as tolerated. Takes all his medications. denies any prolonged palpitation irregular heartbeat. No orthopnea, PND, leg edema. Weight has remained stable. No chest pain. No bleeding issues or neurologic events. [facility] Medical History (Updated 02/05/24 @ 15:02 by Vikash Mcknight MD) Heart failure with reduced ejection fraction ICD (implantable cardioverter-defibrillator) in place Mitral regurgitation Nonischemic cardiomyopathy Surgical History History of permanent cardiac pacemaker placement Hx of cardiac cath Hx of knee surgery Family History Father Sudden cardiac Mother No problems noted. Review of Systems Const Denies chills, Denies fatigue, Denies fever(s), Denies frequent falls, Denies weakness, Denies weight gain and Denies weight loss ENT Denies dizziness Card Denies chest pain, Denies leg edema, Denies lightheadedness, Denies palpitations, Denies dyspnea, Denies dyspnea on exertion, Denies orthopnea and Denies other (loss of consciousness) Resp Denies cough, Denies dyspnea and Denies dyspnea on exertion GI Denies hematochezia and Denies change in stool character Musc Denies abnormal gait, Denies muscle weakness, Denies numbness, Denies radiating pain into limb and Denies tingling Neuro Denies abnormal gait, Denies dizziness, Denies frequent falls, Denies numbness, Denies tingling and Denies weakness Endo Denies fatigue and Denies palpitations Physical Exam Vital Signs: Last Vital Signs Pulse 58 02/05/24 14:40 BP 116/64 02/05/24 14:40 BMI result Body Mass Index 26.7 Const General: cooperative, no acute distress, alert and awake Nutritional Appearance: overweight Orientation/consciousness: patient oriented x3 Limitations: no limitations Neck Neck: Yes trachea midline, Yes supple and Yes no JVD Resp Effort & Inspection: normal respiratory effort Auscultation: clear to auscultation bilaterally Cardio Jugular venous distension: no JVD Palpation: abnormal PMI displaced PMI Rate: regular rate Rhythm: regular rhythm Heart sounds: S1 normal heart sound present and S2 normal heart sound present GI Auscultation: normal bowel sounds Skin General skin exam: no rashes or lesions noted Neuro General: patient oriented x3 and no focal motor deficits Extrem General: Yes no clubbing, cyanosis or edema Psych Appearance: grossly normal Office Procedures Cardiac Device Check Cardiac Device Check Details: Single-chamber [facility] ICD in place. Programmed in VVI at 40 beats per minute. Battery life is 3.2 years. Patient very worried about his device function. Ventricular capture thresholds excellent. Ventricular sensing is excellent. Pacing and shock lead impedance is stable. 10803-RH Cardiac Device Check, single lead implantable defibrillator Procedure code (CPT) selection complete Assessment & Plan Assessment & Plan (1) Heart failure with improved ejection fraction (HFimpEF): Code(s): I50.32 - Chronic diastolic (congestive) heart failure Category: Medical Plan: heart failure with improved ejection fraction on current medical therapy. Clinically euvolemic and well compensated. Has done very well with neurohormonal modulation with Entresto as well as carvedilol therapy. As well as with I have upgrade in therapy. Continue the same. Continue current diuretic dose. Daily weight monitoring avoidance salt loading was discussed. At this point time will continue monitor by clinical visits and will follow-up echocardiogram 6 months time. (2) PAF (paroxysmal atrial fibrillation): Comment: high suspicion on remote ICD monitoring Code(s): I48.0 - Paroxysmal atrial fibrillation Category: Medical Plan: Paroxysmal atrial fibrillation without any clinical recurrence at this point time. Continue current carvedilol therapy. Avoidance of stimulants was discussed. No indication for antiarrhythmic drug therapy at this point time. Continue full oral anticoagulation, currently on apixaban 5 mg b.i.d.. Semi annual renal function test should be pursued avoidance of stimulants was discussed. He understands and agrees. (3) ICD (implantable cardioverter-defibrillator) in place: Code(s): Z95.810 - Presence of automatic (implantable) cardiac defibrillator Category: Medical Plan: ICD in place, working well. Will follow remotely for heart failure as well as device function. Will follow up in the clinic in 6 months time, sooner p.r.n.. Thank you for allowing me to partake in his care Orders: Orders CA echo transthoracic complete 6 Months I50.32 - Chronic diastolic (congestive) heart failure Coding Level of Care Code Est Pt Level 4 (29736) Complex EM visit Add On G2211 Diagnoses Heart failure with improved ejection fraction (HFimpEF) I50.32 PAF (paroxysmal atrial fibrillation) I48.0 ICD (implantable cardioverter-defibrillator) in place Z95.810 CPT Codes Cardiac Device Check - Cardiac Device 4: [id number] Cardiac Device Check, single lead implantable defibrillator ([id number])
[2024-02-05 14:40] VITALS: BP 116/64; PULSE 58; BMI 26.7
== END 2024-02-05 15:01 | disposition home or self-care (01) ==
PROVIDERS: PCP Internal Medicine; Visit Provider Internal Medicine Cardiovascular Disease
DX: I50.32 Chronic diastolic (congestive) heart failure (principal); I48.0 Paroxysmal atrial fibrillation; Z95.810 Presence of automatic (implantable) cardiac defibrillator
CPT/HCPCS: 93282; 99214; G2211

== ENCOUNTER → 2024-02-05 14:31 | Outpatient (BNVA) | payer MEDICARE, MEDICAID, SELFPAY | PROVIDERS: PCP Internal Medicine; Visit Provider Internal Medicine Cardiovascular Disease | DX: I11.0 Hypertensive heart disease with heart failure (principal); I50.32 Chronic diastolic (congestive) heart failure; I48.0 Paroxysmal atrial fibrillation; Z45.010 Encounter for checking and testing of cardiac pacemaker pulse generator [battery] | CPT/HCPCS: 99212 ==

== ENCOUNTER → 2024-02-21 23:59 | Outpatient (BNV) | payer MEDICARE, MEDICAID, SELFPAY ==
--- NOTE | 2024-02-24 16:12 | A.OFFVIS_ITS ---
Intake Visit Reasons: Remote ICD check- [facility] Allergies No Known Allergies Allergy (Verified 12/10/23 02:47) [facility] Medical History (Updated 02/05/24 @ 15:02 by Vikash Mcknight MD) Heart failure with reduced ejection fraction ICD (implantable cardioverter-defibrillator) in place Mitral regurgitation Nonischemic cardiomyopathy Surgical History History of permanent cardiac pacemaker placement Hx of cardiac cath Hx of knee surgery Family History Father Sudden cardiac Mother No problems noted. Office Procedures Cardiac Device Check Cardiac Device Check Details: Remote ICD report generated 02/21/2024. ICD function is adequate [id number] Cardiac Interrogation, implant defibrillator w/interim Procedure code (CPT) selection complete Assessment & Plan Assessment & Plan (1) ICD (implantable cardioverter-defibrillator) in place: Code(s): Z95.810 - Presence of automatic (implantable) cardiac defibrillator Category: Medical Plan: See above Coding Level of Care Code Procedure Only Diagnoses ICD (implantable cardioverter-defibrillator) in place Z95.810 CPT Codes Cardiac Device Check - Cardiac Device 13: [id number] Cardiac Interrogation, implant defibrillator w/interim ([id number])
== END ==
PROVIDERS: PCP Internal Medicine; Visit Provider Internal Medicine Cardiovascular Disease
DX: Z45.02 Encounter for adjustment and management of automatic implantable cardiac defibrillator (principal)
CPT/HCPCS: 93295

== ENCOUNTER → 2024-05-22 23:59 | Outpatient (BNV) | payer MEDICARE, MEDICAID, SELFPAY ==
--- NOTE | 2024-05-26 15:07 | A.OFFVIS_ITS ---
Intake Visit Reasons: Remote ICD check- [facility] Allergies No Known Allergies Allergy (Verified 12/10/23 02:47) [facility] Medical History (Updated 02/05/24 @ 15:02 by Vikash Mcknight MD) Heart failure with reduced ejection fraction ICD (implantable cardioverter-defibrillator) in place Mitral regurgitation Nonischemic cardiomyopathy Surgical History History of permanent cardiac pacemaker placement Hx of cardiac cath Hx of knee surgery Family History Father Sudden cardiac Mother No problems noted. Office Procedures Cardiac Device Check Cardiac Device Check Details: Remote ICD report generated 05/22/2024. ICD function is adequate [id number] Cardiac Interrogation, implant defibrillator w/interim Procedure code (CPT) selection complete Assessment & Plan Assessment & Plan (1) ICD (implantable cardioverter-defibrillator) in place: Code(s): Z95.810 - Presence of automatic (implantable) cardiac defibrillator Category: Medical Plan: See above Coding Level of Care Code Procedure Only Diagnoses ICD (implantable cardioverter-defibrillator) in place Z95.810 CPT Codes Cardiac Device Check - Cardiac Device 13: [id number] Cardiac Interrogation, implant defibrillator w/interim ([id number])
== END ==
PROVIDERS: PCP Internal Medicine; Visit Provider Internal Medicine Cardiovascular Disease
DX: Z45.02 Encounter for adjustment and management of automatic implantable cardiac defibrillator (principal)
CPT/HCPCS: 93295

== ENCOUNTER → 2024-07-26 15:03 | Outpatient (REF) | payer MEDICARE, MEDICAID, SELFPAY ==
--- NOTE | 2024-07-26 15:05 | CA_ITS ---
Transthoracic Echocardiogram Patient (Last, First, Middle): Roger Monroy, Gender: Male Date of : 1950 Age: 73 Procedure Date: 07/26/2024 Procedure Type: Transthoracic Echocardiogram Location: OP Height: 198.12 cm Weight: 110.68 kg BSA: 2.46 m2 Heart Rate: 49 bpm BP: 125 / 60 mmHg Artist Suspect: NATHAN Referring MD: Vikash Mcknight MD Condenser Cleaner: Vikash Mcknight MD Symptoms: I50.32 - Chronic diastolic (congestive) heart failure Study Quality: Technically Difficult ECG Rhythm: Bradycardia Conclusions: - 1. Moderately dilated left ventricle with normal LV ejection fraction 55-60% with impaired relaxation filling pattern 2. Mild biatrial enlargement 3. Trace aortic and mild mitral regurgitation noted 4. Mildly dilated ascending aorta at 4 cm 5. Normal RV systolic pressure 6. No gross pericardial effusion Findings Procedure Information The study quality is limited by the patients inability to tolerate the test. Left Ventricle Moderately increased left ventricular cavity size. There is normal left ventricular wall thickness. The left ventricular systolic function is normal. The visually estimated ejection fraction is between 55-60%. Spectral Doppler is indicative of an impaired relaxation filling pattern. E/E prime ratio is between 8 and 15 consistent with indeterminate filling pressures. Wall Motion Rest Echo Findings The basal inferior and basal inferoseptal segments are hypokinetic. All other scored wall segments showed normal motion. Right Ventricle Normal right ventricular cavity size and systolic function. There is an ICD wire seen in the right ventricle. Atria The left atrium is mildly dilated. There is no evidence of interatrial shunt. The right atrium is mildly dilated. Aortic Valve The aortic valve structure and function is likely normal. There is no aortic valve stenosis. There is trace (trivial) aortic valve regurgitation. Mitral Valve There is mild anterior and posterior mitral leaflet thickening. There is mild mitral valve regurgitation. There is no mitral valve stenosis. Pulmonic Valve The pulmonic valve was not well visualized. Tricuspid Valve Likely normal tricuspid valve structure and function. There is trace tricuspid valve regurgitation. The right ventricular systolic pressure is normal. The right ventricular systolic pressure is 26 mmHg. Normal right atrial pressure. There is no evidence of pulmonary hypertension. Great Vessels The pulmonary artery was not well visualized. There is mild dilatation of the ascending aorta measuring 4.00 cm. Venous The inferior vena cava is normal in size and collapses greater than 50% with inspiration. Pericardium/Pleural There is no evidence of pericardial effusion. Prior Study Comparison Changes noted compared to prior study dated: 07/15/2023. LV function is marginally improved Measurements 2D Linear Measurements IVSd: 0.99 0.6-0.9/0.6-1.0 cm LVIDd: 7.17 3.9-5.3/4.2-5.9 cm LVIDd Index: 2.91 2.4-3.2/2.2-3.1 cm/m2 LVIDs: 4.76 2.0-3.6 cm LVPWd: 1.21 0.7-1.1 cm LA Diam: 4.40 2.7-3.8/3.0-4.0 cm LAIDs Index: 1.79 1.5-2.3 cm/m2 LV Mass: 470.85 67-162/88-224 g LV Mass Index: 191.40 43-95/49-115 g/m2 LVOT Diam: 2.20 3.0+(-)1.3 cm 2D Systolic Function EF 4C: 56.00 >55% EF 2C: 62.50 >55% EF BiP: 59.90 >55% Mitral Valve MV Pk E: 0.73 MV PK A: 0.78 MV Decel Time: 221.00 E/A: 0.90 E'Lateral: 11.20 E'Medial: 7.40 E/E' Med: 9.80 E/E' Lat: 6.50 PHT: 65.00 MVA PHT: 3.38 Decel Jennings: 3.30 Aortic Valve AoV Pk Wiley: 1.77 AoV Mn Wiley: 1.21 AoV VTI: 0.35 AoV Pk Grad: 13.00 Aov Mn Grad: 7.00 CARLINE Cont.VTI: 3.33 LVOT LVOT Pk Wiley: 1.36 LVOT Mn Wiley: 0.94 LVOT VTI: 0.31 LVOT Pk Grad: 7.00 LVOT Mn Grad: 4.00 LVOT Diam: 2.20 LVOT Area: 3.80 Diastolic Function MV Pk E: 0.73 MV Pk A: 0.78 E/A: 0.90 E'Medial: 7.40 E/E' Med: 9.80 E' Laterial: 11.20 E/E' Lat: 6.50 Right Ventricle TAPSE (mm): 25.50 TVS' Wiley: 14.40 Tricuspid Valve TR Pk Wiley: 2.10 TR Pk Grad: 18.00 RA Press: 8.00 RVSP: 26.00 Great Vessels Aorta Sinus of Valsalva: 4.20 2.0-3.5 cm Ao Asc: 4.00 2.1-3.4 cm Ao Arch: 3.50 Pulmonary Valve PV Pk Wiley: 0.92 Peak PV Grad: 3.00 Updated in Other Vendor System with Status of Final Vikash Mcknight MD electronically signed on 07/27/2024 12:52:00 PM with status of Final
--- OUTSIDE RECORDS SUMMARY | 2024-07-26 15:06 | XMS_ITS | Clinical Summary ---
Author Organization [facility] Address [address] [place] [address] Care Team Providers Care Child Welfare Consultant Name Role Phone Magda Johnson DMD Primary Care Provider [phone] Source Comments PLEASE NOTE, if this patient is a minor, it may be UNLAWFUL to discuss sensitive information that is contained in these records (such as FAMILY PLANNING, MENTAL HEALTH or SUBSTANCE ABUSE) with the minor patient's parent or other person without the patient's specific authorization.[facility] Social History Tobacco Use Types Packs/Day Years Used Date Smoking Tobacco: Never Assessed Social Connections Answer Date Recorded Social Connections and Isolation 0 01/31/2020 Financial Resource Strain Answer Date R ecorded Financial Resource Strain 0 2019 Stress Answer Date Recorded Stress 0 01/31/2020 Physical Activity Answer Date Recorded Physical Activity 0 01/31/2020 Food Insecurity Answer Date Recorded Food 0 01/31/2020 Transportation Needs Answer Date Record ed Transportation 0 01/31/2020 Housing Stability Answer Date Recorded Housing 0 01/31/2020 Safety and Environment Answer Date Nj rded Safety 0 01/31/2020 Utilities Answer Date Recorded Utilities 0 01/31/2020 Employment Answer Date Recorded Employment 0 01/31/2020 Sex and Gender Information Value Date Recorded Sex Assigned at Not on file Legal Sex Male 11:02 AM PDT Gender Identity Not on file Sexual Orientation Not on file Plan of Treatment Not on file [place] [facility] [place] [id number] Care Teams Child Welfare Consultant Relationship Specialty Start Date End Date Magda Johnson DMD [address] [place] [id number] PCP - General 11/26/18
== END ==
LOC: HO.CARD 15:03
PROVIDERS: PCP Internal Medicine; Visit Provider Internal Medicine Cardiovascular Disease
DX: I50.32 Chronic diastolic (congestive) heart failure (principal)
CPT/HCPCS: 93306

== ENCOUNTER → 2024-07-26 15:05 | Outpatient (BNV) | payer MEDICARE, MEDICAID, SELFPAY | PROVIDERS: PCP Internal Medicine; Visit Provider Internal Medicine Cardiovascular Disease | DX: I50.32 Chronic diastolic (congestive) heart failure (principal); I51.7 Cardiomegaly | CPT/HCPCS: 93306 ==

== ENCOUNTER 2024-08-05 14:43 | Outpatient (AMB) | payer MEDICARE, MEDICAID, SELFPAY ==
[2024-08-05 14:45] VITALS: BP 130/80; PULSE 82; BMI 26.7
--- NOTE | 2024-08-05 14:45 | A.OFFVIS_ITS ---
Vital Signs 08/05/24 14:45 Height 6 ft 6 in Weight 231 lb 7.766 oz BMI 26.7 BP 130/80 Blood Pressure Location Lt brachial Position Sitting Pulse 82 Intake Visit Reasons: 6m w device ck Intake Note: 6 month follow-up with [facility] check heart doing ok Marine Engineering Technicians Required: No Allergies No Known Allergies Allergy (Verified 12/10/23 02:47) Medication List - Last Reconciled 08/05/24 by Vikash Mcknight MD apixaban (Eliquis) 5 mg PO BID 90 days carvedilol 50 mg (2 x 25 mg) PO Q12H Entresto 97-103 mg (sacubitril-valsartan) 1 tab PO BID NS finasteride 5 mg PO DAILY furosemide 40 mg PO BID hydroxyzine HCl 25 mg PO BID PRN ipratropium-albuterol 0.5 mg-3 mg(2.5 mg base)/3 mL mL inhalation Q4H PRN ivabradine (Corlanor) 5 mg PO BID oxycodone-acetaminophen 5-325 mg 1 tab PO tamsulosin 0.4 mg PO BEDTIME HPI Comments Details: Roger comes for follow-up. He is markedly limited in activity level due to his hip arthritis. He is scheduled to see orthopedic surgeon and had MRI yesterday which showed significant osteoarthritis. He had a recent echocardiogram showed which shows dilated LV but preserved LV ejection fraction. Patient denies any new cardiac symptoms. Denies any significant orthopnea, PND, leg edema. No lightheadedness, syncope. No palpitations, lightheadedness, syncope, ICD discharge. Takes all his medications regularly. [facility] Medical History Heart failure with reduced ejection fraction ICD (implantable cardioverter-defibrillator) in place Mitral regurgitation Nonischemic cardiomyopathy Surgical History History of permanent cardiac pacemaker placement Hx of cardiac cath Hx of knee surgery Family History Father Sudden cardiac Mother No problems noted. Review of Systems Const Denies chills, Denies fatigue, Denies fever(s), Denies frequent falls, Denies weakness, Denies weight gain and Denies weight loss ENT Denies dizziness Card Denies chest pain, Denies leg edema, Denies lightheadedness, Denies palpitations, Denies dyspnea, Denies dyspnea on exertion, Denies orthopnea and Denies other (loss of consciousness) Resp Denies cough, Denies dyspnea and Denies dyspnea on exertion GI Denies hematochezia and Denies change in stool character Musc Denies abnormal gait, Denies muscle weakness, Denies numbness, Denies radiating pain into limb and Denies tingling Neuro Denies abnormal gait, Denies dizziness, Denies frequent falls, Denies numbness, Denies tingling and Denies weakness Endo Denies fatigue and Denies palpitations Physical Exam Vital Signs: Last Vital Signs Pulse 82 08/05/24 14:45 BP 130/80 08/05/24 14:45 BMI result Body Mass Index 26.7 Const General: cooperative, no acute distress, alert and awake Nutritional Appearance: overweight Orientation/consciousness: patient oriented x3 Limitations: no limitations Neck Neck: Yes trachea midline, Yes supple and Yes no JVD Resp Effort & Inspection: normal respiratory effort Auscultation: clear to auscultation bilaterally Cardio Jugular venous distension: no JVD Palpation: abnormal PMI displaced PMI Rate: regular rate Rhythm: regular rhythm Heart sounds: S1 normal heart sound present and S2 normal heart sound present GI Auscultation: normal bowel sounds Skin General skin exam: no rashes or lesions noted Neuro General: patient oriented x3 and no focal motor deficits Extrem General: Yes no clubbing, cyanosis or edema Psych Appearance: grossly normal Office Procedures Cardiac Device Check Cardiac Device Check Details: Single-chamber [place] ICD in place. Programmed in VVI at 40 beats per minute. No arrhythmias noted. No ICD therapy. Ventricular pacing thresholds excellent. Ventricular sensing is adequate. Pacing and shock lead impedance is stable. Battery life is at 2.8 years 32169-KG Cardiac Device Check, single lead implantable defibrillator Procedure code (CPT) selection complete Assessment & Plan Assessment & Plan (1) Heart failure with improved ejection fraction (HFimpEF): Code(s): I50.32 - Chronic diastolic (congestive) heart failure Category: Medical Plan: Heart failure with improved LV ejection fraction on current medical therapy. Clinically euvolemic and well compensated current diuretic regimen. Continue current diuretic regimen. Daily weight monitoring and avoidance salt loading was discussed. Continue current neurohormonal modulation with carvedilol, Entresto. Noted sinus bradycardia. Will reduce Corlanor to 2.5 mg b.i.d.. Signs and symptoms of heart failure were discussed. (2) PAF (paroxysmal atrial fibrillation): Comment: high suspicion on remote ICD monitoring Code(s): I48.0 - Paroxysmal atrial fibrillation Category: Medical Plan: Paroxysmal atrial fibrillation without any obvious clinical recurrence. Continue to monitor by pacer telemetry. Advised to call me with any new symptoms. Continue full oral anticoagulation, currently on Eliquis 5 mg b.i.d.. Semi annual renal function test should be pursued. (3) ICD (implantable cardioverter-defibrillator) in place: Code(s): Z95.810 - Presence of automatic (implantable) cardiac defibrillator Category: Medical Plan: ICD in place, working well. Reprogrammed for adequate function. Will follow remotely for heart failure and device function. Follow up in the clinic in 6 months time. (4) Preop cardiovascular exam: Code(s): Z01.810 - Encounter for preprocedural cardiovascular examination Plan: Preoperative cardiovascular risk stratification this elderly gentleman for possible hip surgery. Not planned as yet. However he is clinically optimized to undergo the surgery with intermediate risk for perioperative cardiovascular morbidity mortality. His Eliquis can be withheld for 3 days prior to the surgery and resume as soon as possible after surgery with associated thromboembolic risk. Diuretic can be held on the day of surgery. Close attent ion to fluid shifts as well as intraoperative hypotension needs to be followed closely. ICD can be deactivated with the magnet during surgery and during that time he should be continuously monitor for ventricular arrhythmias. Will follow up in the clinic in 6 months time, sooner p.r.n.. Thank you for allowing me to partake in his care Coding Level of Care Code Est Pt Level 4 (92058) Complex EM visit Add On G2211 Diagnoses Heart failure with improved ejection fraction (HFimpEF) I50.32 PAF (paroxysmal atrial fibrillation) I48.0 ICD (implantable cardioverter-defibrillator) in place Z95.810 Preop cardiovascular exam Z01.810 CPT Codes Cardiac Device Check - Cardiac Device 4: [id number] Cardiac Device Check, single lead implantable defibrillator ([id number])
--- OUTSIDE RECORDS SUMMARY | 2024-08-05 14:45 | XMS_ITS | Encounter Summary ---
Author Organization [facility] Address [address] [place] [address] Care Team Providers Care Hearing Screener Name Role Phone Donaldo Fenton MD Primary Care Provider [phone] Reason for Visit * Imaging (Routine) - Authorized Specialty Diagnoses / Procedures Referred By Leah stokes Referred To Contact Radiology Diagnoses Osteoarthritis of one hip, left Procedures MR Hip wo Contrast Left ChazKali weir [address] [facility] [address] [place] [id number] Phone: tel: fax: [facility] Referral ID Status Reason Start Date Expiration Date V isits Requested Visits Authorized [id number] Authorized 06/09/2024 06/09/2025 1 1 Encounter Details Date Type Department Care Team (Latest Contact Info) Description 08/03/2024 10:13 AM EDT - 08/03/2024 11:59 PM EDT Hospital Encounter [facility] MRI [address] [place] [address] Arrived Discharge Disposition: Home or Self Care Social History Tobacco Use Types Packs/Day Years Used Date Smoking Tobacco: Former Cigarettes 0.5 55 1 04/17/1959 - 03/02/2015 Smokeless Tobacco: Former Quit: 12/31/2014 Alcohol Use Standard Drinks/Week Comments No 0 (1 standard drink = 0.6 oz pur e alcohol) Sex and Gender Information Value Date Recorded Sex Assigned at Not on file Legal Sex Male 6:50 AM EST Gender Identity Not on file Sexual Orientation Not on file documented as of this encounter Medications at Time of Discharge acetaminophen (TYLENOL 8 HOUR) 650 mg 8 hr tablet Take 1 Tablet by mouth 2 times daily for 10 days. 12/25/2022 albuterol HFA (PROAIR HFA ; PROVENTIL HFA ; VENTOLIN HFA) 90 mcg/actuation inhaler Inhale 2 Puffs into the lungs every 4 hours as needed for Cough or Wheezing. 12/24/2023 apixaban (Eliquis) 5 mg tablet Take 1 tablet (5 mg total) by mouth 2 (two) times a day. 11/11/2021 carvediloL (COREG) 25 mg tablet Take 2 Tabs by mouth 2 times daily (with meals). 07/27/2018 cloNIDine (CATAPRES) 0.1 mg tablet Take 1 tablet (0.1 mg total) by mouth 2 (two) times a day. cloNIDine (CATAPRES) 0.2 mg tablet 11/07/2023 cyanocobalamin (VITAMIN B-12) 1,000 mcg/mL injection Inject 1 mL into the muscle every 30 days. Vitamin B12 1000 mcg q week x 4 weeks then q month 10/16/2023 finasteride (PROSCAR) 5 mg tablet TAKE 1 TABLET BY MOUTH EVERY DAY 90 tablet 1 07/06/2024 furosemide (LASIX) 40 mg tablet TAKE 1 TABLET BY MOUTH EVERY MORNING AND 1/2 TABLET AT BEDTIME 135 tablet 1 05/27/2024 gabapentin (NEURONTIN) 100 mg capsule Take 1 capsule (100 mg total) by mouth 3 (three) times a day if needed. 09/27/2023 hydrOXYzine HCL (ATARAX) 25 mg tablet Take 1 tablet (25 mg total) by mouth 2 (two) times a day if needed. 11/07/2023 hydrOXYzine HCL (ATARAX) 25 mg tablet Take 1 tablet (25 mg total) by mouth every 8 (eight) hours if needed for anxiety. 45 tablet 04/12/2024 ipratropium-albutero L (DUONEB) 0.5-2.5 mg/3 mL nebulizer solution Inhale 3 mL into the lungs every 4 hours as needed (cough, wheezing, shortness of breath). 12/16/2023 ivabradine (Corlanor) 5 mg tablet Take 5 mg by mouth 2 times daily. ivabradine (Corlanor) 5 mg tablet Take 1 tablet (5 mg total) by mouth 2 (two) times a day. 10/02/2020 mirtazapine (REMERON) 7.5 mg tablet TAKE 1 TABLET BY MOUTH EVERYDAY AT BEDTIME 90 tablet 1 01/21/2024 omeprazole (PriLOSEC) [address] capsule Take 1 capsule (20 mg total) by mouth 2 (two) times a day. 04/28/2023 oxyCODONE-acetaminop hen (PERCOCET) 5-325 mg per tablet Take 1 tablet by mouth 5 (five) times a day. Max Daily Amount: 5 tablets 140 tablet 07/07/2024 oxyCODONE-acetaminop hen (PERCOCET) 7.5-325 mg per tabletIndications:Shilpi mbar disc disease,Primary osteoarthritis of left hip Take 1 tablet by mouth 5 (five) times a day. Max Daily Amount: 5 tablets 140 tablet 07/20/2024 sacubitriL-valsartan (Entresto) 97-103 mg per tablet Take 1 Tab by mouth 2 times daily. sacubitriL-valsartan (Entresto) 97-103 mg per tablet Take 1 tablet by mouth 2 (two) times a day. sertraline (ZOLOFT) 25 mg tablet Take 1 tablet (25 mg total) by mouth 1 (one) time each day. 30 each 5 02/26/2024 tamsulosin (FLOMAX) 0.4 mg 24 hr capsule Take 1 capsule (0.4 mg total) by mouth 1 (one) time each day. Capsules should be taken 30 minutes following the same meal each day. 90 each 1 03/25/2024 documented as of this encounter Discharge Disposition Disposition Code Departure Means Destination Home or Self Care documented in this encounter Procedure Notes * Lauren Fofnaa NP - 08/03/2024 10:45 AM EDT Procedure:Defibrillator interrogation pre and post MRI, testing pre and post MRI and monitoring forthe duration of MRI The patient has a Medtronic BiV ICD. He is not pacer dependent. He BiV paces 97% of the time. Thereare no recorded arrhythmias. He was programmed DOO 80 for the duration of MRI. There were no EKG issues during MRI. Testing of hte device post MRI did not show any significant changes in sensing, lead impedances or pacing threshold. [id number] Impression: Normal device functionProcedure:Defibrillator interrogation pre and post MRI, testing pre and post MRI and monitoring for the duration of MRI The patient has an Sorto Single chamberICD. He is not pacer dependent. He paces <3% of the time. There are no recent recorded arrhythmias. He was programmed off for the duration of MRI. There were no EKG issues during MRI. Testing of the device post MRI did not show any significant changes in sensing, lead impedances or pacing threshold. [id number] Impression: Normal device function Cosigned by Cameron Joy MD at 08/03/2024 3:46 PM EDT documented in this encounter Plan of Treatment Upcoming Encounters Date Type Department Care Team (Late st Contact Info) Description 10/21/2024 3:00 PM EDT Office Visit [facility] [address] [place] [id number] Donaldo Fenton MD [address] [place] [id number] documented as of this encounter Procedures Procedure Name Priority Date/Time Associated Diagnosis Comments MR HIP WO CONTRAST LEFT Routine 08/03/2024 11:48 AM EDT Osteoarthritis of one hip, left documented in this encounter Results * MR Hip wo Contrast Left (08/03/2024 11:48 AM EDT) Anatomical Region Laterality Modality Lower Extremities, Hip Left Magnetic Resonance 08/03/2024 2:31 PM EDT Impressions 08/03/2024 2:49 PM EDT Severe bilateral femoral head osteonecrosis with slight collapse of the articular surface of the left femoral head, marrow edema throughout the left femoral head, and delamination of the large subchondral fracture fragment along the posterior aspect of the femoral articular surface. ??Moderate left hip effusion with internal complexity, synovitis, and several intra-articular loose bodies -------- FINAL REPORT -------- Dictated By: BAHMAN LOAIZA Dictated Date: 08/03/2024 14:31 ET Assigned Physician: BAHMAN LOAIZA Reviewed and Electronically Signed By: BAHMAN LOAIZA Signed Date: 08/03/2024 14:49 ET Workstation ID: [id number] Transcribed By: Self Edit Transcribed Date: 08/03/2024 14:31 ET Narrative 08/03/2024 2:49 PM EDT PROCEDURE: Left hip MRI INDICATION: Osteoarthritis, pain TECHNIQUE: Multiplanar, multisequence MRI of the left hip Without contrast. COMPARISON: ??No priors available. FINDINGS: There is severe bilateral femoral head osteonecrosis with slight collapse of the articular surface of the left femoral head and marrow edema throughout the left femoral head. ??Moderate, complex left hip effusion with several intra-articular loose bodies and debris seen within the joint. Delamination of a large subchondral fracture fragment seen posteriorly along the femoral articular surface, with joint fluid dissecting along the undersurface of the fracture fragment, without displacement of the fragment. No collapse of the right femoral articular surface is detected on the provided images. Circumferential degenerative tearing of the left hip labrum. Gluteal tendons are intact. Hamstring tendons are intact. Rectus femoris and iliopsoas tendons are intact. Muscle bulk is preserved. ??No mass or superficial fluid collection. Sacroiliac joints are normal. Visualized intrapelvic structures are normal. Procedure Note Bahman Loaiza MD - 08/03/2024 PROCEDURE: Left hip MRI INDICATION: Osteoarthritis, pain TECHNIQUE: Multiplanar, multisequence MRI of the left hip Withoutcontrast. COMPARISON: No priors available. FINDINGS: There is severe bilateral femoral head osteonecrosis with slight collapseof the articular surface of the left femoral head and marrow edemathroughout the left femoral head. Moderate, complex left hip effusionwith several intra-articular loose bodies and debris seen within thejoint. Delamination of a large subchondral fracture fragment seen posteriorlyalong the femoral articular surface, with joint fluid dissecting along theundersurface of the fracture fragment, without displacement of thefragment. No collapse of the right femoral articular surface is detected on theprovided images. Circumferential degenerative tearing of the left hip labrum. Gluteal tendons are intact. Hamstring tendons are intact. Rectus femoris and iliopsoas tendons are intact. Muscle bulk is preserved. No mass or superficial fluid collection. Sacroiliac joints are normal. Visualized intrapelvic structures are normal. IMPRESSION: Severe bilateral femoral head osteonecrosis with slight collapse of thearticular surface of the left femoral head, marrow edema throughout theleft femoral head, and delamination of the large subchondral fracturefragment along the posterior aspect of the femoral articular surface.Moderate left hip effusion with internal complexity, synovitis, andseveral intra-articular loose bodies -------- FINAL REPORT -------- Dictated By: BAHMAN LOAIZA Dictated Date: 08/03/2024 14:31 ET Assigned Physician: BAHMAN LOAIZA Reviewed and Electronically Signed By: BAHMAN LOAIZA Signed Date: 08/03/2024 14:49 ET Workstation ID: [id number] Transcribed By: Self Edit Transcribed Date: 08/03/2024 14:31 ET Kali Mallory DO IMG MRI PROCEDURES Final Result documented in this encounter Visit Diagnoses Not on filedocumented in this encounter Additional Health Concerns Assessment Noted Time PHQ-9 Depression Total Score: 0 03/25/19 25 3:29 PM EST A fall risk assessment has been complete d for the patient 03/25/2024 3:29 PM EST documented as of this encounter Care Teams Hearing Screener Relationship Specialty Start Date End Date Donaldo Fenton MD [address] [place] [address] PCP - General Internal Medicine 03/07/11 documented as of this encounter
== END 2024-08-05 15:03 | disposition home or self-care (01) ==
LOC: HO.HCS 14:44
PROVIDERS: PCP Internal Medicine; Visit Provider Internal Medicine Cardiovascular Disease
DX: I50.32 Chronic diastolic (congestive) heart failure (principal); I48.0 Paroxysmal atrial fibrillation; Z95.810 Presence of automatic (implantable) cardiac defibrillator; Z01.810 Encounter for preprocedural cardiovascular examination
CPT/HCPCS: 93282; 99214; G2211

== ENCOUNTER → 2024-08-05 14:43 | Outpatient (BNVA) | payer MEDICARE, MEDICAID, SELFPAY | PROVIDERS: PCP Internal Medicine; Visit Provider Internal Medicine Cardiovascular Disease | DX: Z45.02 Encounter for adjustment and management of automatic implantable cardiac defibrillator (principal); Z01.810 Encounter for preprocedural cardiovascular examination; I50.32 Chronic diastolic (congestive) heart failure; I48.0 Paroxysmal atrial fibrillation | CPT/HCPCS: 99212 ==

== ENCOUNTER 2024-08-19 13:03 | Outpatient (REF) | payer MEDICARE, MEDICAID, SELFPAY ==
--- NOTE | ~2024-08-19 | XR_ITS ---
EXAMINATION: XR PELVIS 1-2 VIEWS HISTORY: M25.559 - Pain in unspecified hip COMPARISON: There are no prior studies available for comparison. FINDINGS: Two AP views of the pelvis is submitted. There is severe degenerative change of the left hip with joint space narrowing, subchondral cyst formation, and deformity of the femoral head. Findings may represent the sequelae of old AVN. The right hip joint space is maintained. There is no fracture or dislocation. The soft tissues are unremarkable. XR/XR pelvis 1-2V IMPRESSION: Severe degenerative change of the left hip as described. Electronically signed by: Leonard Olivera MD 08/20/2024 08:14 AM EDT
--- OUTSIDE RECORDS SUMMARY | 2024-08-19 15:11 | XMS_ITS | Clinical Summary ---
Author Organization [facility] Address [address] [place] [address] Care Team Providers Care Thermo Processor Name Role Phone Magda Johnson DMD Primary Care Provider [phone] Source Comments PLEASE NOTE, if this patient [...] Treatment Not on file Insurance [place] [facility] [place] [id number] Care Teams Thermo Processor Relationship Specialty Start Date End Date Magda Johnson DMD [address] [place] [address] PCP - General 11/26/18
== END 2024-08-19 13:04 | disposition home or self-care (01) ==
LOC: HO.HOSX 13:03
PROVIDERS: Visit Provider Orthopaedic Surgery
DX: M25.559 Pain in unspecified hip (principal); M87.052 Idiopathic aseptic necrosis of left femur; I42.8 Other cardiomyopathies; Z95.0 Presence of cardiac pacemaker
CPT/HCPCS: 72170; 99202

== ENCOUNTER 2024-08-19 14:08 | Outpatient (AMB) | payer MEDICARE, MEDICAID, SELFPAY ==
[2024-08-19 14:14] VITALS: BMI 26.7
--- NOTE | 2024-08-19 14:14 | A.OFFVIS_ITS ---
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 States he has had ongoing pain for the last 2 years. No injury he can recall.He received injection with Dr Kali Bueno, states injections no longer helps. Last injection was 3 months ago and he felt no relives. Patient has also tried P.T with no improvement. Patient would like to discuss surgical options. He also mentioned he has numbness and tingling in his toes. 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 States he has had ongoing pain for the last 2 years. No injury he can recall.He received injection with Dr Kali Bueno, states injections no longer helps. The first injection was extremely helpful but only lasted for about 4 weeks. That following injections were decreasingly helpful and the last injection was 3 months ago and he felt no relief at all. Patient has also tried P.T with no improvement. Patient would like to discuss surgical options.. Hx of bilateral patella fracture when in [place] and when he used to play basketball. His pain now as overwhelming. He states he can not cane. Sleeping. Easily into our chair even bed. He states of his life has suffered tremendously. [facility] Medical History (Updated 08/23/24 @ 08:30 by Harpreet Vincent MD) Heart failure with reduced ejection fraction ICD (implantable cardioverter-defibrillator) in place Mitral regurgitation Nonischemic cardiomyopathy Surgical History (Updated 08/23/24 @ 08:30 by Harpreet Vincent MD) History of permanent cardiac pacemaker placement Hx of cardiac cath Hx of knee surgery Family History Father Sudden cardiac Mother No problems noted. 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 A markedly positive Trendelenburg. 2+ dorsalis pedis pulse. Skin clean dry and intact bilateral lower extremities. Results Reviewed Results Reviewed: I personally reviewed relevant radiographs. Left hip with superior femoral head collapse consistent with Ficat stage III/ early stage IV avascular necrosis as the acetabulum is becoming involved Assessment & Plan Assessment & Plan (1) Avascular necrosis of bone of left hip: Code(s): M87.052 - Idiopathic aseptic necrosis of left femur Category: Medical Plan: This is a 73-year-old active gentleman with severe pain secondary to avascular necrosis of the left femoral head. He is debilitated by his injury and I recommend arthroplasty. I discussed the diagnosis and the treatment options including , but not limited to, surgery. He had a pacemaker placed for nonischemic cardiomyopathy and according to his chart has improved ejection fraction as a result. He was referred by his business development assistant and I do believe that he will be cleared for surgery but obviously that will require a more formal conversation with his business development assistant. I did discuss some of the risks of surgery with him including infection, fracture, leg length discrepancy, need for additional surgery as well as potential medical complications such as heart failure, organ failure, blood clots and pulmonary embolism as well as minor potential complications such as wound healing trouble, pneumonia, constipation and the importance of long-term monitoring in the presence of implanted hardware. He expressed understanding and would like to proceed forward accordingly. His last injection was 3 months ago and I anticipate the safe is time to do surgery would be 6 months from the last injection. (2) Nonischemic cardiomyopathy: Code(s): I42.8 - Other cardiomyopathies Category: Medical Plan: (3) History of permanent cardiac pacemaker placement: Comment: [facility] Code(s): Z95.0 - Presence of cardiac pacemaker Category: Surgical Plan: Plan Orders: Orders XR pelvis 1-2V 08/19/24 M25.559 - Pain in unspecified hip Coding Level of Care Code New Pt Level 4 (75350) Diagnoses Avascular necrosis of bone of left hip M87.052 Nonischemic cardiomyopathy I42.8 History of permanent cardiac pacemaker placement Z95.0
== END 2024-08-19 15:39 | disposition home or self-care (01) ==
LOC: HO.HOS 14:09
PROVIDERS: PCP Internal Medicine; Visit Provider Orthopaedic Surgery
DX: M87.052 Idiopathic aseptic necrosis of left femur (principal); I42.8 Other cardiomyopathies; Z95.0 Presence of cardiac pacemaker
CPT/HCPCS: 99204

== ENCOUNTER → 2024-08-19 14:33 | Outpatient (BNV) | payer MEDICARE, MEDICAID, SELFPAY | PROVIDERS: Visit Provider Radiology Diagnostic Radiology | DX: M16.12 Unilateral primary osteoarthritis, left hip (principal) | CPT/HCPCS: 72170 ==

== ENCOUNTER → 2024-08-21 23:59 | Outpatient (BNV) | payer MEDICARE, MEDICAID, SELFPAY ==
--- NOTE | 2024-08-24 18:13 | A.OFFVIS_ITS ---
Intake Visit Reasons: Remote ICD check- [facility] Allergies No Known Allergies Allergy (Verified 08/19/24 14:42) COUNT INCLUDES THE [facility] Medical History (Updated 08/23/24 @ 08:30 by Harpreet Vincent MD) Heart failure with reduced ejection fraction ICD (implantable cardioverter-defibrillator) in place Mitral regurgitation Nonischemic cardiomyopathy Surgical History (Updated 08/23/24 @ 08:30 by Harpreet Vincent MD) History of permanent cardiac pacemaker placement Hx of cardiac cath Hx of knee surgery Family History Father Sudden cardiac Mother No problems noted. 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 ICD function is adequate [id number] Cardiac Interrogation, implant defibrillator w/interim Procedure code (CPT) selection complete Assessment & Plan Assessment & Plan (1) ICD (implantable cardioverter-defibrillator) in place: Code(s): Z95.810 - Presence of automatic (implantable) cardiac defibrillator Category: Medical Plan: See above Coding Level of Care Code Procedure Only Diagnoses ICD (implantable cardioverter-defibrillator) in place Z95.810 CPT Codes Cardiac Device Check - Cardiac Device 13: [id number] Cardiac Interrogation, implant defibrillator w/interim ([id number])
== END ==
PROVIDERS: Visit Provider Internal Medicine Cardiovascular Disease
DX: Z45.02 Encounter for adjustment and management of automatic implantable cardiac defibrillator (principal)
CPT/HCPCS: 93295

== ENCOUNTER → 2024-09-07 08:26 | Outpatient (REF) | payer MEDICARE, MEDICAID, SELFPAY ==
--- NOTE | ~2024-09-07 | NM_ITS ---
Lexiscan Myocardial perfusion study Indication: Preoperative cardiac evaluation Technique: The patient was brought in for a Lexiscan perfusion study on 09/07/2024 and was injected 0.4 mg of Lexiscan intravenously. Within a minute of this injection 40 mCi of sestamibi was given intravenously. Images were obtained using the SPECT gamma camera interlaced with the gating device. Images were obtained in supine position. Resting perfusion study was performed on 09/08/2024. Patient was administered 40 mCi of sestamibi intravenously at rest. Images were then obtained in supine position. Total DLP 71 mGy-cm. Images were processed with the software and compared side to side in short axis, horizontal long axis and vertical long axis views. Findings: Raw aquisition reviewed. The stress perfusion study showed decreased tracer uptake along the inferior wall. CT attenuation corrected images are of suboptimal quality and with globally reduced uptake. However, in the inferior wall there seems to be better tracer uptake then the uncorrected images. The gated study shows mildly reduced LV systolic function with calculated LVEF of 50%. LV cavity is dilated in size. The gated study shows globally reduced wall thickening and contraction of segments. Resting study shows diminished tracer uptake along the inferior wall. With CT attenuation correction possibly increased inferior wall uptake but suboptimal quality to assess. Gating at rest reveals globally reduced contractility is LVEF of 29%. The findings are consistent with fixed inferior perfusion defect. No clear reversible defects. NM/NM cardiolite stress test Impression: 1. Myocardial perfusion imaging study shows fixed inferior perfusion defect that is probably artifactual, related to subdiaphragmatic tracer uptake. 2. Gated LVEF is 50% during stress and 29% during rest. Correlate with echocardiogram. 3. Transient ischemic dilatation not present but LV chamber is dilated. EKG component of the test reported separately. Electronically signed by: Vlad Monroe MD 09/08/2024 03:29 PM EDT
--- OUTSIDE RECORDS SUMMARY | 2024-09-07 08:40 | XMS_ITS ---
Author Organization [address] Address [address] [place] [address] Phone Care Team Providers Care Entry Analyst Name Role Phone Donaldo Fenton MD Primary Care Provider [phone] High Risk Care Management Status:Identified (Enrolling) Start date:08/23/2024 Case Team Name Relationship Phone Kat Valentin RN Care Manager(Responsible S taff) Continued Care and Services Coordination
--- NOTE | 2024-09-07 10:34 | CA_ITS ---
Acquisition Time: 2024-09-07 09:18:58 Total Exercise Time: 00:02:00 Test Indications: PREOP CARDIOMYOPATHY Medications: CARVEDILOL ENTRESTO Protocol: LEXISCAN Max HR: 75 BPM 50% of Pred: 149 BPM Max BP: 130/80 mmHG Max Work Load: 1.0 METS Pharmacological stress test with Lexiscan whiel pt moves his arms and legs in chair, with reports of 5/10 chest tightness and SOB, with frequent PVCs, with normotensive response to injection. Nondiagnostic EKG for ischemia. In recovery, pt treated with IVP Aminophylline 75 mg to reverse Lexiscan after which pt gradually feeling back to baseline. CP resolved. Nuclear images pending. Test reviewed with Dr. Monroe. Referred By: Vikash Mcknight Electronically Signed By: Guillermo Raman
== END ==
LOC: HO.NUCMED 08:26
PROVIDERS: Visit Provider Internal Medicine Cardiovascular Disease
DX: Z01.818 Encounter for other preprocedural examination (principal); Z95.0 Presence of cardiac pacemaker; I48.0 Paroxysmal atrial fibrillation; I42.8 Other cardiomyopathies; I34.0 Nonrheumatic mitral (valve) insufficiency
CPT/HCPCS: 78452; 93017; A9500; J0280; J2785

== ENCOUNTER → 2024-09-07 10:34 | Outpatient (BNV) | payer MEDICARE, MEDICAID, SELFPAY | DX: R94.31 Abnormal electrocardiogram [ECG] [EKG] (principal) | CPT/HCPCS: 78452; 93016; 93018 ==

== ENCOUNTER → 2024-10-18 10:45 | Outpatient (BNVA) | payer MEDICARE, MEDICAID, SELFPAY | DX: Z01.818 Encounter for other preprocedural examination (principal) ==

== ENCOUNTER 2024-11-04 10:43 | Outpatient (AMB) | payer MEDICARE, MEDICAID, SELFPAY ==
--- NOTE | 2024-11-04 11:18 | MHC.OFFVIS ---
Intake Visit Reasons: Pre-Op: L ELY w/NE 11/10/24 Intake Note: Roger is a 73 year old year old male who presents today for a pre operative appointment for his left total hip arthroplasty done on 11/10/[address] Vincent. Patient was given pain management form. Allergies No Known Allergies Allergy (Verified 11/04/24 11:19) HPI HPI Pre-Op: L ELY w/NE 11/10/24: Details: Mr. Monroy is a 73-year-old male with a history of left hip avascular necrosis who is scheduled for a total hip arthroplasty. They have experienced progressive hip pain over the past 2 years. Pain is described as aching/sharp/throbbing, worsened by prolonged standing, walking, and stair climbing. Conservative treatments including physical therapy, activity modification, and multiple corticosteroid injections provided only temporary or minimal relief. Last corticosteroid injection in the left hip was performed on 06/04/[address] Kali Mallory. The patient is unable to consume NSAIDs due to a past medical history significant for AFib on chronic Eliquis 5 mg b.i.d.. The patient reports significant limitations in daily activities and decreased quality of life due to pain and stiffness. No recent history of trauma or infection. They are otherwise in their usual state of health. He uses a cane to assist with ambulation. Of note, the patient does have a history for severe lower back pain affecting the left lower extremity. A lumbosacral spine MRI for [facility] on 01/07/2023 revealed degenerative changes with evidence of moderate spinal stenosis at the L3-L4 level, severe bilateral neural foraminal narrowing at the L4-L5 level and L5-S1 level. He routinely receives epidural injections stemming back to 2022. PCP medical clearance with Dr. Hong cancino on 09/29/2024: Functional status is less than 4 METs as he is sedentary 2nd to the severe hip pain. Patient is on Coreg, clonidine, Corlanor, Entresto and Lasix. Last EF was 40-45%. Patient follows with Cardiology Dr. Mcknight. Patient has a histor of AFib on Eliquis. History of COPD in which he uses a Combivent nebulizer daily and PRN albuterol. Has a past history of lumbar disc disease in his on oxycodone-acetaminophen 7.5-325 mg 1 tablet p.o. 5XD. Patient is a former smoker, quit date 03/02/2015. Medication recommendations: -beta-blockade perioperatively is to be continued -pulmonary risk factors include age greater than 50 and chronic lung disease -Early ambulation and use of incentive spirometry is encouraged -continue DuoNeb on the day of surgery and will take his albuterol with him to the hospital on the day of surgery. -hold Entresto and Lasix on the day of surgery due to risk of hypotension -hold Eliquis 3 days prior to surgery -patient will consume Coreg, ivabradine and oxycodone on the day of surgery with a sip of water -patient will take all other prescribed medications the night prior to surgery except Eliquis. -patient will hold all other medications/supplements on the day of surgery Cardiology: Dr. Mcknight's recommendations from 09/12/2024 are as follows: -stress test was normal patient is optimized for surgery with intermediate risk for perioperative cardiovascular morbidity and mortality. -hold Lasix on day of surgery and Eliquis for 3 days prior to surgery with associated thromboembolic risk. -close monitoring for fluid shifts as well as intraoperative hypotension -ICD can be deactivated with the magnet during surgery and during that time he should be continuously monitored for ventricular arrhythmias Transthoracic echocardiogram obtained on 07/26/2024: Conclusions: 1. Moderately dilated left ventricle with normal LV ejection fraction 55-60% with impaired relaxation filling pattern 2. Mild biatrial enlargement 3. Trace aortic and mild mitral regurgitation noted 4. Mildly dilated ascending aorta at 4 cm 5. Normal RV systolic pressure 6. No gross pericardial effusion NM cardiolite stress test 08/2024 Impression: 1. Myocardial perfusion imaging study shows fixed inferior perfusion defect that is probably artifactual, related to subdiaphragmatic tracer uptake. 2. Gated LVEF is 50% during stress and 29% during rest. Correlate with echocardiogram. 3. Transient ischemic dilatation not present but LV chamber is dilated. Cardiac Device Check Details: Remote ICD report generated 08/21/2024. ICD function is adequate MRI of the left hip obtained on 08/03/2024 with significant for severe bilateral femoral head osteonecrosis with slight collapse of the articular surface of the left femoral head, marrow edema throughout the left femoral head and delamination. [facility] Medical History (Updated 10/20/24 @ 14:07 by Adri Christy RN) Ambulates with cane Wears dentures PAF (paroxysmal atrial fibrillation) BPH (benign prostatic hyperplasia) Osteoarthritis Depression Anxiety COPD (chronic obstructive pulmonary disease) Snores Hx of fracture of patella Heart failure with reduced ejection fraction ICD (implantable cardioverter-defibrillator) in place Mitral regurgitation Nonischemic cardiomyopathy Surgical History (Updated 10/20/24 @ 13:44 by Adri Christy RN) History of implantable cardioverter-defibrillator (ICD) placement (05/04/15) Hx of cardiac cath Hx of knee surgery (~1997) Family History Father Sudden cardiac Mother No problems noted. 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 Positive Trendelenburg. 2+ dorsalis pedis pulse. Extreme groin pain with internal and external rotation with signifcant limitation in motion. NVI. Psych Appearance: grossly normal Mental Status: mental status grossly normal Attitude: cooperative Assessment & Plan Assessment & Plan (1) Avascular necrosis of bone of left hip: Code(s): M87.052 - Idiopathic aseptic necrosis of left femur Category: Medical Plan I discussed in detail the procedure and what to expect pre and post operatively.? We discussed the risks, benefits and alternatives to the surgery as well as the rehabilitation course. The following topics were reviewed in detail with the patient: Risks: Risks include, but are not limited to infection, bleeding, blood clots, nerve injury, ongoing pain, ongoing swelling, ongoing stiffness, perioperative risk of injury to bones and soft tissues, prosthesis loosening or wear, anesthesia related complications, revision surgery, amputation, and mortality. Expected Benefits: Improved function, reduced pain, better quality of life. Alternatives: Continued non-operative treatment, joint injections, physical therapy or no surgical intervention. Risks of not moving forward with surgery: Progression of joint disease and damage, worsening function, fracture, and/or pain. The patient had ample opportunity to ask questions. All questions were answered to the patient's satisfaction. The patient verbalized understanding and agreed to move forward with left total hip arthroplasty with Dr. Vincent. The patient demonstrates understanding of the risks, benefits and alternatives. The surgical consent form was given to the patient for additional review and signed by the patient with myself as a witness. Lastly, patient was sent for BNP, CBC with no diff and type and screen after today's appointment. Patient will obtain his walker from [employer] surgical supply and contact information was given to the patient in order to do so. Postoperative Recovery Notes: -Eliquis 5 mg b.i.d. at baseline due to AFib -Patient is looking for short-term rehab as he lives alone -He would like to attend [facility] [place] [facility] -The patient is on 7.5-325 mg oxycodone at baseline for hip pain Orders: Orders XR hip LT min 2V Today M25.559 - Pain in unspecified hip PT Evaluation and Treatment Today Z96.642 - Presence of left artificial hip joint Coding Level of Care Code Global (14621) Diagnoses Avascular necrosis of bone of left hip M87.052
--- OUTSIDE RECORDS SUMMARY | 2024-11-04 12:15 | XMS_ITS ---
Author Organization [facility] [address] [place] [address] [address] [place] [address] Phone Care Team Providers Care Elementary Educator Name Role Phone Donaldo Fenton MD Primary Care Provider Ortho Nurse Care Management Status:Ongoing (Active) Start date:10/01/2024 Enrollment date:10/13/2024 Enrollment reason:Referred by Care Team Overview Referral from Kat - feeling depressed, loss of mobility, seeking therapy Case Team Name Relationship Phone Livia Gibbons [facility] On Air Announcer(Responsible St aff) [phone] Continued Care and Services Coordination
--- OUTSIDE RECORDS SUMMARY | 2024-11-04 12:15 | XMS_ITS ---
Author Name [facility] Organization Unknown Care Team Organization Name Specialty Phone Email Start Date End Da [facility] 11/03/2024
--- OUTSIDE RECORDS SUMMARY | 2024-11-04 12:15 | XMS_ITS | Clinical Summary ---
Author Organization [facility] Address [address] [place] [address] Care Team Providers Care Cable Systems Installer Name Role Phone Magda Johnson DMD Primary Care Provider [phone] Source Comments PLEASE NOTE, if this patient [...] Treatment Not on file Insurance [place] [facility] [place] [id number] Care Teams Cable Systems Installer Relationship Specialty Start Date End Date Magda Johnson DMD [address] [place] [address] PCP - General 11/26/18
== END 2024-11-04 11:39 | disposition home or self-care (01) ==
LOC: HO.HOS 10:44
PROVIDERS: Visit Provider Physician Assistant
DX: M87.052 Idiopathic aseptic necrosis of left femur (principal)
CPT/HCPCS: 99024

== ENCOUNTER → 2024-11-04 11:07 | Outpatient (BNV) | payer MEDICARE, SELFPAY | PROVIDERS: Visit Provider Radiology Diagnostic Radiology | DX: M16.12 Unilateral primary osteoarthritis, left hip (principal) | CPT/HCPCS: 73502 ==

== ENCOUNTER 2024-11-04 11:10 | Outpatient (REF) | payer MEDICARE, OTHER, SELFPAY ==
--- NOTE | ~2024-11-04 | XR_ITS ---
EXAMINATION: XR HIP, LEFT CLINICAL INFORMATION: M25.559 - Pain in unspecified hip COMPARISON: None available. TECHNIQUE: AP upright, AP supine, and frog-leg lateral views of the left hip. FINDINGS: AP pelvis demonstrates the right hip with small marginal osteophytes involving the femoral head and acetabular roof with preservation of the joint space. The left hip joint demonstrates moderate axial joint space narrowing. The femoral head shows superior sclerosis. Acetabular roof demonstrates subchondral sclerosis. There is minimal osteophyte formation associated with the left hip. There is a small shallow concavity in the superior left femoral head. Linear calcification is present in the pubic symphysis joint consistent with chondrocalcinosis.. SI joints are symmetrical and unremarkable. There is an electric generator projecting over the left pelvic region. 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 Possible small subchondral insufficiency fracture involving the left femoral head. Early changes of osteoarthritis are evident in the right hip joint. Electronically signed by: García Wu MD 11/04/2024 11:24 AM EDT
--- OUTSIDE RECORDS SUMMARY | 2024-11-05 11:16 | XMS_ITS | Clinical Summary ---
Author Organization [facility] Address [address] [place] [address] Care Team Providers Care Wood Buffer Name Role Phone Magda Johnson DMD Primary Care Provider [phone] Source Comments PLEASE NOTE, if this patient [...] Treatment Not on file [place] [facility] [place] [id number] Care Teams Wood Buffer Relationship Specialty Start Date End Date Magda Johnson DMD [address] [place] [address] PCP - General 11/26/18
--- OUTSIDE RECORDS SUMMARY | 2024-11-05 11:16 | XMS_ITS ---
Author Organization [facility] [address] [place] [address] Address [address] [place] [address] Phone Care Team Providers Care Outsole Cutter Machine Name Role Phone Donaldo Fenton MD Primary Care Provider [phone] Metal Mockup Maker Care Management Status:Ongoing (Active) Start date:10/01/2024 Enrollment date:10/13/2024 Enrollment reason:Referred by Care Team Overview Referral from Kat - feeling depressed, loss of mobility, seeking therapy Case Team Name Relationship Phone Livia Gibbons [facility] Aerial Tram Operator(Responsible St aff) [phone] Continued Care and Services Coordination
== END 2024-11-04 11:11 | disposition home or self-care (01) ==
LOC: HO.HOSX 11:10
PROVIDERS: Visit Provider Physician Assistant
DX: Z01.818 Encounter for other preprocedural examination (principal); M87.052 Idiopathic aseptic necrosis of left femur
CPT/HCPCS: 73502; 99212

== ENCOUNTER 2024-11-10 06:42 | Day surgery (SDC) | payer MEDICARE, SELFPAY ==
--- OUTSIDE RECORDS SUMMARY | 2024-10-05 11:56 | XMS_ITS | Clinical Summary ---
Author Organization [facility] Address [address] [place] [address] Care Team Providers Care Pensionholder Information Clerk Name Role Phone Magda Johnson DMD Primary Care Provider [phone] Source Comments PLEASE NOTE, if this patient [...] Treatment Not on file Insurance [place]ICARE - [place] MED[place] DENTAL [facility] [place] [id number] Care Teams Pensionholder Information Clerk Relationship Specialty Start Date End Date Magda Johnson DMD [address] [place] [address] PCP - General 11/26/18
--- OUTSIDE RECORDS SUMMARY | 2024-10-05 11:56 | XMS_ITS ---
Author Organization [facility] [address] [place] [address] Address [address] [place] [address] Phone Care Team Providers Care Doughnut Fryer Name Role Phone Donaldo Fenton MD Primary Care Provider [phone] It Architecture Consultant Care Management Status:Identified (Enrolling) Start date:10/01/2024 Enrollment reason:Referred by Care Team Overview Referral from Kat - feeling depressed, loss of mobility, seeking therapy Case Team Name Relationship Phone Livia ZENDEJAS Director Public Service(Responsible St aff) [phone] Continued Care and Services Coordination
[2024-10-20 13:20] VITALS: BP 115/61; PULSE 55; RESP 16; O2SAT 98; BMI 26.5
--- NOTE | 2024-10-20 14:02 | HO.ANESPROP2 ---
Documented by User: Autumn Last NP 10/21/24 13:37 HPI - Anesthesia Eval Consult details Narrative: 73yo M for Left Hip Total Replacement, 11/10/24 Cardiac optimized. Follows [facility] Cardiology for HFimpEF s/p ICD, PAF (eliquis). Close attention to fluid shifts as well as intraoperative hypotension needs to be followed closely. per cardiology No recent illness No CP/SOB - activity limited to pain HFimpEF: EF 55-60% on 07/2024 echo ICD in situ. ICD can be deactivated with the magnet during surgery and during that time he should be continuously monitor for ventricular arrhythmias. per cardiology COPD: albuterol ~ 3 x weekly - uses nebulizer for convenience Moderate + Stop Bang: Discussed postop risk/GA/Opiates. Pt verbalized understanding. Encouraged future work up through PCP. [facility] Active Problems Active Problems: All Active Problems Avascular necrosis of bone of left hip (Acute) Heart failure with improved ejection fraction (HFimpEF) (Acute) COVID-19 (Acute) PAF (paroxysmal atrial fibrillation) (Acute) History of permanent cardiac pacemaker placement (Acute) ICD (implantable cardioverter-defibrillator) in place (Acute) Mitral regurgitation (Acute) Nonischemic cardiomyopathy (Acute) Past Medical History Medical History Ambulates with cane Wears dentures PAF (paroxysmal atrial fibrillation) BPH (benign prostatic hyperplasia) Osteoarthritis Depression Anxiety COPD (chronic obstructive pulmonary disease) Snores Hx of fracture of patella Heart failure with reduced ejection fraction ICD (implantable cardioverter-defibrillator) in place Mitral regurgitation Nonischemic cardiomyopathy Family History Family History Father Sudden cardiac Mother No problems noted. Family history of problems with anesthesia: No Surgical History Surgical History History of implantable cardioverter-defibrillator (ICD) placement (05/04/15) Hx of cardiac cath Hx of knee surgery (~1997) History of Problems with Anesthesia: No Social History Social History Household Members: None Housing: Apartment Are you a primary health care analyst to a significant other at home: No Do you presently have visiting nurse or other home services: No Patient Tobacco Use Status: Former Tobacco user Tobacco use type: Cigarette Smoked in Last 30 Days: No Use of substances other than those prescribed or required for medical reasons: No Have you been hit, kicked, punched, or otherwise hurt by someone within the past year? If so, by whom?: No Are you DNR?: No Advance Directives: No Advance Directives Information Provided: Yes Advance Directives on File: No service: No Current occupational status: retired Current occupation: retired [employer] Allergies Allergy/AdvReac Type Severity Reaction Status Date / Time No Known Allergies Allergy Verified 11/10/24 07:10 Home Medications ?Medication ?Instructions ?Recorded ?Confirmed ?Last Taken ?Type finasteride 5 mg tablet 5 mg PO DAILY 05/02/20 10/20/24 11/10/24 05:00 History tamsulosin 0.4 mg capsule 0.4 mg PO .DAILY@1300 05/02/20 10/20/24 11/09/24 History furosemide 40 mg tablet 40 mg PO BID 02/01/21 10/20/24 11/09/24 History ipratropium 0.5 mg-albuterol 3 mg 3 ml inhalation Q4H PRN Shortness 07/31/21 10/20/24 Unknown History (2.5 mg base)/3 mL nebulization Of Breath Or Wheezing soln hydroxyzine HCl 25 mg tablet 25 mg PO BID PRN Anxiety 02/05/24 10/20/24 11/09/24 History albuterol sulfate 90 mcg/actuation 1 puff inhalation Q6H PRN wheezing 10/20/24 10/20/24 11/10/24 05:00 History aerosol inhaler clonidine HCl 0.2 mg tablet 0.2 mg PO BID PRN Anxiety 10/20/24 10/20/24 11/09/24 History mirtazapine 7.5 mg tablet 7.5 mg PO BEDTIME PRN Anxiety 10/20/24 10/20/24 11/09/24 History oxycodone-acetaminophen 7.5 mg-325 1 tab PO 5XD PRN Pain 10/20/24 10/20/24 11/09/24 History mg tablet sertraline 25 mg tablet 25 mg PO DAILY 10/20/24 10/20/24 11/09/24 History Exam Height,Weight and Vital Signs: Height 6 ft 6 in Weight 103.873 kg Last Vital Signs Pulse 55 10/20/24 13:20 Resp 16 10/20/24 13:20 BP 115/61 10/20/24 13:20 Pulse Ox 98 10/20/24 13:20 O2 Del Method Room Air 10/20/24 13:20 Pertinent Lab Results Pertinent Lab Results: Lab Results 10/20/24 10/20/24 Range/Units 14:12 14:25 WBC 7.0 (4.8-10.8) X10*3/uL RBC 4.43 L (4.60-5.80) X10*6/uL Hgb 12.8 L (14.0-18.0) g/dl Hct 38.2 L (42.0-52.0) % MCV 86.2 (80.0-98.0) fL MCH 28.9 (27.0-33.0) pg MCHC 33.5 (31.0-36.0) g/dl RDW 13.6 (11.0-16.0) % Plt Count 266 D (160-400) X10*3/uL MPV 10.5 (9.4-12.4) fL Absolute Nucleated RBC 0.000 (0.0-0.012) X10*3/uL Nucleated RBC % (auto) 0.0 (0.0-0.2) /100WBC Sodium 141 (135-145) mmol/L Potassium 4.9 (3.3-5.1) mmol/L Chloride 104 (96-108) mmol/L Carbon Dioxide 29 (22-29) mmol/L Anion Gap 13 (12-20) BUN 11 (9-16) mg/dL Creatinine 1.21 (0.5-1.4) mg/dL Estim Creat Clear Calc 72.3 Estimated GFR 59 Random Glucose 78 (60-115) mg/dL Calcium 9.1 (8.4-10.2) mg/dL Nasal Screen MRSA (PCR) NEGATIVE (Negative) Nasal S. aureus Screen NEGATIVE (Negative) Nasal MRSA/S.aureus Interp SEE NOTE Narrative Narrative: EKG 09/2024 SB @ 49 IVCD, Consider atypical LBBB ECHO 07/2024 Conclusions: - 1. Moderately dilated left ventricle with normal LV ejection fraction 55-60% with impaired relaxation filling pattern 2. Mild biatrial enlargement 3. Trace aortic and mild mitral regurgitation noted 4. Mildly dilated ascending aorta at 4 cm 5. Normal RV systolic pressure 6. No gross pericardial effusion NM cardiolite stress test 08/2024 Impression: 1. Myocardial perfusion imaging study shows fixed inferior perfusion defect that is probably artifactual, related to subdiaphragmatic tracer uptake. 2. Gated LVEF is 50% during stress and 29% during rest. Correlate with echocardiogram. 3. Transient ischemic dilatation not present but LV chamber is dilated. Cardiac Device Check Details: Remote ICD report generated 08/21/2024. ICD function is adequate Airway Mallampati Class: III TM Dist: >3cm Neck ROM: Full Denture: Upper and Lower Heart: RRR Lungs: CTAB Assessment and Plan Assessment Anesthesia Assessment: Anesthesia Plan Discussed and PAT Visit Final Anesthetic Review Family History of Problems with Anesthesia: No History of Problems with Anesthesia: No Documented by User: Wallace Buchanan MD 11/10/24 08:59 PMFSH Past Medical History Medical History Ambulates with cane Wears dentures PAF (paroxysmal atrial fibrillation) BPH (benign prostatic hyperplasia) Osteoarthritis Depression Anxiety COPD (chronic obstructive pulmonary disease) Snores Hx of fracture of patella Heart failure with reduced ejection fraction ICD (implantable cardioverter-defibrillator) in place Mitral regurgitation Nonischemic cardiomyopathy Family History Family History Father Sudden cardiac Mother No problems noted. Surgical History Surgical History History of implantable cardioverter-defibrillator (ICD) placement (05/04/15) Hx of cardiac cath Hx of knee surgery (~1997) Social History Social History Household Members: None Housing: Apartment Are you a primary health care analyst to a significant other at home: No Do you presently have visiting nurse or other home services: No Patient Tobacco Use Status: Former Tobacco user Tobacco use type: Cigarette Smoked in Last 30 Days: No Use of substances other than those prescribed or required for medical reasons: No Have you been hit, kicked, punched, or otherwise hurt by someone within the past year? 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 [employer] Allergies Allergy/AdvReac Type Severity Reaction Status Date / Time No Known Allergies Allergy Verified 11/10/24 07:10 Home Medications ?Medication ?Instructions ?Recorded ?Confirmed ?Last Taken ?Type finasteride 5 mg tablet 5 mg PO DAILY 05/02/20 10/20/24 11/10/24 05:00 History tamsulosin 0.4 mg capsule 0.4 mg PO .DAILY@1300 05/02/20 10/20/24 11/09/24 History furosemide 40 mg tablet 40 mg PO BID 02/01/21 10/20/24 11/09/24 History ipratropium 0.5 mg-albuterol 3 mg 3 ml inhalation Q4H PRN Shortness 07/31/21 10/20/24 Unknown History (2.5 mg base)/3 mL nebulization Of Breath Or Wheezing soln hydroxyzine HCl 25 mg tablet 25 mg PO BID PRN Anxiety 02/05/24 10/20/24 11/09/24 History albuterol sulfate 90 mcg/actuation 1 puff inhalation Q6H PRN wheezing 10/20/24 10/20/24 11/10/24 05:00 History aerosol inhaler clonidine HCl 0.2 mg tablet 0.2 mg PO BID PRN Anxiety 10/20/24 10/20/24 11/09/24 History mirtazapine 7.5 mg tablet 7.5 mg PO BEDTIME PRN Anxiety 10/20/24 10/20/24 11/09/24 History oxycodone-acetaminophen 7.5 mg-325 1 tab PO 5XD PRN Pain 10/20/24 10/20/24 11/09/24 History mg tablet sertraline 25 mg tablet 25 mg PO DAILY 10/20/24 10/20/24 11/09/24 History Exam Airway Mallampati Class: III Assessment and Plan Assessment Anesthesia Assessment: Chart Reviewed Final Anesthetic Review NPO: Yes ASA Class: III Final Preanesthetic Review: No Changes in Pt Med Stat, Meds/Allgs Chart Reviewed, Consent Obtained/Reviewed and Anes Risks/Benef Reviewed Patient Risk: Intermediate Procedure Risk: Intermediate Anesthetic Plan Anesthetic Plan: GA Disposition: Standard PACU
[2024-10-20 15:03] LABS: Hematocrit 38.2 % (42.0-52.0); Hemoglobin 12.8 g/dl (14.0-18.0); Mean Corpuscular HGB Conc 33.5 g/dl (31.0-36.0); Mean Corpuscular Hemoglobin 28.9 pg (27.0-33.0); Mean Corpuscular Volume 86.2 fL (80.0-98.0); NRBC Abs Auto 0.000 X10*3/uL (0.0-0.012); NRBC Pct Auto 0.0 /100WBC (0.0-0.2); Platelet Count 266 X10*3/uL (160-400); Red Blood Count 4.43 X10*6/uL (4.60-5.80); White Blood Count 7.0 X10*3/uL (4.8-10.8)
[2024-10-20 15:42] LABS: Anion Gap 13 (12-20); Blood Urea Nitrogen 11 mg/dL (9-16); Calcium 9.1 mg/dL (8.4-10.2); Carbon Dioxide 29 mmol/L (22-29); Chloride 104 mmol/L (96-108); Creatinine Clr Calc Pharmacy 72.3; Estimated Glomerular Filt Rate 59; Potassium 4.9 mmol/L (3.3-5.1); Sodium 141 mmol/L (135-145)
[2024-10-20 16:59] LABS: MRSA Nasal PCR NEGATIVE (Negative); SA Nasal PCR NEGATIVE (Negative)
[2024-11-10] VITALS (22 sets, daily range): BP systolic 102–147; BP diastolic 55–83; PULSE 45–68; RESP 12–22; TEMP 36–37.1; O2SAT 92–100
--- NOTE | ~2024-11-10 | XR_ITS ---
EXAMINATION: XR PELVIS CLINICAL INFORMATION: s/p LTHA COMPARISON: August 19, 2024 TECHNIQUE: AP view of the pelvis. FINDINGS: Since the prior exam, total hip arthroplasty has been performed on the left. Femoral stem makes good cortical contact. Acetabular cup is secured with 2 screws. There is anatomic alignment. Right hip joint demonstrates minimal axial joint space narrowing and small marginal osteophytes involving the acetabular roof and femoral head. Linear chondrocalcinosis is present in the pubic symphysis joint. XR/XR pelvis 1-2V IMPRESSION: Changes from recent left hip arthroplasty appear unremarkable. Stable mild degenerative changes in the right hip joint. Chronocalcinosis in the pubic symphysis joint. Electronically signed by: García Wu MD 11/10/2024 12:29 PM EDT
--- NOTE | 2024-11-10 07:07 | MHC.SHP ---
Pre-Procedural Eval Section A - 24 Hr Update-Section A only Date of Service: 11/10/24 The patient is an INPATIENT: No Changes since office visit: No Cold of Flu in the past 2 weeks, No New Medical Problems, No Changes in Medication and No Patient answered all questions The patient has been examined within 24 hours of the surgical procedure. The History & Physical has been completed within 30 days and I have reviewed it.: Yes Section B - Complete if H&P > 30 days Chief Complaint: Idiopathic aseptic necrosis of left femur Allergies: Allergies Allergy/AdvReac Type Severity Reaction Status Date / Time No Known Allergies Allergy Verified 11/04/24 11:19 Plan I have reviewed the history and physical and performed a pertinent physical examination on my patient. No changes have occurred unless specified. Time Spent With Patient Time: Total time managing care of this patient today ____ minutes.
[2024-11-10] MEDS: oxyCODONE HCl ER 10 MG TAB.ER.12H PO ×3 (07:52→20:55)
[2024-11-10] MEDS: Lactated Ringers 1,000 ML 100 ML IVCONT ×3 (08:12→23:44)
--- NOTE | 2024-11-10 11:12 | PM.OP ---
Brief Operative Note Date of Service: 11/10/24 Pre-op diagnosis: Left hip OA Post-op diagnosis: same Procedure: Left ELY Surgeon: Harpreet Vincent MD Anesthesia: GETA Was an Automated Teller Manager used for this Procedure?: Yes Automated Teller Manager: Emma Flowers Estimated blood loss (mL): 200 IV fluids (mL): 1,000 Pathology: other Condition: stable Disposition: PACU
--- NOTE | 2024-11-10 11:27 | PHA.MEDREC ---
Addendum entered by Mitch Mcmullen, Marisol 11/10/24 12:08: MED REC CHECKED BY [facility] Original Note: Pharmacy Consult ? Medication Reconciliation Pharmacy has reviewed the medication reconciliation done by nursing. Claims match med list.
[2024-11-10] MEDS: oxyCODONE HCl Immed Release 5 MG TABLET 10 MG PO ×2 (13:55→18:00)
--- NOTE | 2024-11-10 16:11 | HO.PM.IMCN ---
History of Present Illness Data of Consult Service Date: 11/10/24 Requesting physician: Maura Montoya Primary Care Provider: Donaldo Fenton III, MD HPI Reason for consult: Routine medical management Roger Monroy is a 73 years old man with past medical history significant for paroxysmal atrial fibrillation, BPH, nonischemic cardiomyopathy s/p AICD, MR and depression/anxiety underwent a left ELY today for idiopathic aseptic necrosis of the femoral. He denied any headache, chest pain, shortness on breath. He denied any acute gastrointestinal or genitourinary symptoms. He does complain of left hip pain associated to his surgery. He denied alcohol abuse, tobacco smoking or illicit drug use. Last labs including CBC and BMP done at the beginning of this month are unremarkable. Review of Systems Review of Systems: All 12 systems were reviewed and normal except as noted in HPI. [facility] Medical History Ambulates with cane Wears dentures PAF (paroxysmal atrial fibrillation) BPH (benign prostatic hyperplasia) Osteoarthritis Depression Anxiety COPD (chronic obstructive pulmonary disease) Snores Hx of fracture of patella Heart failure with reduced ejection fraction ICD (implantable cardioverter-defibrillator) in place Mitral regurgitation Nonischemic cardiomyopathy Family History Father Sudden cardiac Mother No problems noted. Surgical History History of implantable cardioverter-defibrillator (ICD) placement (05/04/15) Hx of cardiac cath Hx of knee surgery (~1997) Social History Household Members: None Housing: Apartment Are you a primary respiratory care practitioner to a significant other at home: No Do you presently have visiting nurse or other home services: No Patient Tobacco Use Status: Former Tobacco user Tobacco use type: Cigarette Smoked in Last 30 Days: No Use of substances other than those prescribed or required for medical reasons: No Have you been hit, kicked, punched, or otherwise hurt by someone within the past year? 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 Meds Allergies Allergy/AdvReac Type Severity Reaction Status Date / Time No Known Allergies Allergy Verified 11/10/24 07:10 Active Medications: Current Medications Acetaminophen (Acetaminophen 325 Mg Tablet) 650 mg PO Q6H PRN PRN Reason: Pain, Mild 1-3,fever,headache Last Admin: 11/10/24 13:55 Dose: 650 mg Albuterol Sulfate (Albuterol Sulfate 90 Mcg 8 Gm Inhaler) 1 puff INHALE Q6H PRN PRN Reason: Wheezing Albuterol/Ipratropium (Albuterol/Iprat 2.5/0.5mg 3 Ml Ampul.Neb) 3 ml INHALE Q4H PRN PRN Reason: Shortness Of Breath Or Wheezing Apixaban (Apixaban 5 Mg Tablet) 5 mg PO BID KATHI Calcium Carbonate (Calcium Carbonate 750 Mg Tab.Chew) 750 mg PO Q4H PRN PRN Reason: Heartburn Carvedilol (Carvedilol 25 Mg Tablet) 50 mg PO Q12H KATHI; Protocol Last Admin: 11/10/24 13:48 Dose: Not Given Celecoxib (Celecoxib 200 Mg Capsule) 200 mg PO BID [facility] Last Admin: 11/10/24 13:54 Dose: 200 mg Clonidine HCl (Clonidine Hcl 0.2 Mg Tablet) 0.2 mg PO BID PRN; Protocol PRN Reason: Anxiety Enoxaparin Sodium (Enoxaparin Sodium 40 Mg/0.4 Ml Syringe) 40 mg SUBCUT Q24H KATHI Stop: 11/12/24 08:00 Finasteride (Finasteride 5 Mg Tablet) 5 mg PO DAILY [facility] Last Admin: 11/10/24 13:48 Dose: Not Given Furosemide (Furosemide 40 Mg Tablet) 40 mg PO BID KATHI; Protocol Last Admin: 11/10/24 13:47 Dose: Not Given Hydromorphone HCl (Hydromorphone Hcl 0.5 Mg/0.5 Ml Syringe) 0.25 mg IVPUSH Q4H PRN; Protocol PRN Reason: Pain, Severe (Pain Scale 7-10) Hydroxyzine HCl (Hydroxyzine Hcl 25 Mg Tablet) 25 mg PO BID PRN PRN Reason: Anxiety Lactated Ringer's (Lr) 1,000 mls @ 100 mls/hr IVCONT .Q10H KATHI Last Admin: 11/10/24 13:44 Dose: 100 mls/hr Magnesium Hydroxide (Milk Of Magnesia 30 Ml Oral.Susp) 30 ml PO DAILY PRN PRN Reason: Constipation Melatonin (Melatonin 3 Mg Tablet) 6 mg PO BEDTIME PRN PRN Reason: Insomnia Mirtazapine (Mirtazapine 7.5 Mg Tablet) 7.5 mg PO BEDTIME PRN PRN Reason: Anxiety Naloxone HCl (Naloxone Hcl 0.4 Mg/Ml Vial) 0.04 mg IVPUSH Q5M PRN PRN Reason: Excessive sedation or RR < 8 Naloxone HCl (Naloxone Hcl 0.4 Mg/Ml Vial) 0.04 mg IVPUSH Q5M PRN PRN Reason: Excessive sedation or RR < 8 Non-Formulary Medication (Ivabradine [Corlanor]) 2.5 mg PO BID [facility] Ondansetron HCl (Ondansetron Hcl 4 Mg/2 Ml Vial) 4 mg IVPUSH Q8H PRN PRN Reason: Nausea and Vomiting Last Admin: 11/10/24 15:11 Dose: 4 mg Oxycodone HCl (Oxycodone Hcl Immed Release 5 Mg Tablet) 10 mg PO Q4H PRN PRN Reason: Pain, Moderate(Pain Scale 4-6) Last Admin: 11/10/24 13:55 Dose: 10 mg Oxycodone HCl (Oxycodone Hcl Er 10 Mg Tab.Er.12h) 10 mg PO BID [facility] Last Admin: 11/10/24 13:54 Dose: 10 mg Sacubitril/Valsartan (Sacubitril/Valsartan 97/103 1 Tab Tablet) 1 tab PO BID [facility]; Protocol Last Admin: 11/10/24 13:48 Dose: Not Given Sertraline HCl (Sertraline Hcl 25 Mg Tablet) 25 mg PO DAILY [facility] Last Admin: 11/10/24 13:48 Dose: Not Given Sodium Chloride (0.9 % Sodium Chloride Flush 3 Ml Syringe) [facility] Last Admin: 11/10/24 15:07 Dose: Not Given Tamsulosin HCl (Tamsulosin Hcl 0.4 Mg Capsule) 0.4 mg PO .DAILY@1300 [facility] Home Medications ?Medication ?Instructions ?Recorded ?Confirmed ?Last Taken ?Type finasteride 5 mg tablet 5 mg PO DAILY 05/02/20 10/20/24 11/10/24 05:00 History tamsulosin 0.4 mg capsule 0.4 mg PO .DAILY@1300 05/02/20 10/20/24 11/09/24 History furosemide 40 mg tablet 40 mg PO BID 02/01/21 10/20/24 11/09/24 History ipratropium 0.5 mg-albuterol 3 mg 3 ml inhalation Q4H PRN Shortness 07/31/21 10/20/24 Unknown History (2.5 mg base)/3 mL nebulization Of Breath Or Wheezing soln hydroxyzine HCl 25 mg tablet 25 mg PO BID PRN Anxiety 02/05/24 10/20/24 11/09/24 History albuterol sulfate 90 mcg/actuation 1 puff inhalation Q6H PRN wheezing 10/20/24 10/20/24 11/10/24 05:00 History aerosol inhaler clonidine HCl 0.2 mg tablet 0.2 mg PO BID PRN Anxiety 10/20/24 10/20/24 11/09/24 History mirtazapine 7.5 mg tablet 7.5 mg PO BEDTIME PRN Anxiety 10/20/24 10/20/24 11/09/24 History oxycodone-acetaminophen 7.5 mg-325 1 tab PO 5XD PRN Pain 10/20/24 10/20/24 11/09/24 History mg tablet sertraline 25 mg tablet 25 mg PO DAILY 10/20/24 10/20/24 11/09/24 History Physical Exam Vital Signs and Narrative: Vital Signs: Last Vital Signs Temp 98.7 F 11/10/24 15:52 Pulse 56 11/10/24 15:52 Resp 16 11/10/24 15:52 BP 102/55 L 11/10/24 15:52 Pulse Ox 92 11/10/24 15:52 O2 Del Method Room Air 11/10/24 15:52 O2 Flow Rate 2 11/10/24 13:10 BMI result Body Mass Index 26.5 Constitutional - Awake and Alert, No apparent distress HEENT - PER, EOMI Heart - RRR, No murmurs Lungs - Normal lung expansion, Normal respiratory effort, No respiratory distress, CTA bilaterally Abdomen - NT / ND; +BS; No rebound or guarding Extremities - no calf tenderness bilaterally, no swelling. Distal pulses 2+ bilaterally. Musculoskeletal - Normal inspection, normal ROM Skin - Warm/Dry Neurological - Alert & oriented x3. No facial droop. Normal speech. Psychological - Appropriate affect Results Labs 10/20/24 14:25 10/20/24 14:25 Labs: Laboratory Results - last 24 hr 11/10/24 07:53 Blood Type O Positive Antibody Screen NEGATIVE Imaging Radiologist's Impressions: Impressions Pelvis X-Ray 11/10/24 12:20 IMPRESSION: Changes from recent left hip arthroplasty appear unremarkable. Stable mild degenerative changes in the right hip joint. Chronocalcinosis in the pubic symphysis joint. Electronically signed by: García Wu MD 11/10/2024 12:29 PM EDT RP Assessment and Plan (1) Nonischemic cardiomyopathy: Status: Acute (2) PAF (paroxysmal atrial fibrillation): Status: Acute (3) ICD (implantable cardioverter-defibrillator) in place: Status: Acute Plan Roger Mnoroy is a 73 y/o man has been admitted to the ortho service after undregoing left ELY today and consulted to the hospitalist service for routine medical management of: Paroxysmal a-fib. Continue carvedilol and Eliquis. Nonischemic cardiomyopathy. s/p AICD. Continue Entresto, Corlanor and furosemide. BPH. Continue tamsulosin and finasteride. Depression/anxiety. Continue sertraline, clonidine, mirtazapine and hydroxyzine. COPD. Bronchodilator therapy as needed.
[2024-11-10] MEDS: Sacubitril/Valsartan 97/103 1 TAB TABLET PO (21:02)
[2024-11-11] VITALS (10 sets, daily range): BP systolic 83–111; BP diastolic 42–56; PULSE 53–68; RESP 12–18; TEMP 36–36.5; O2SAT 92–97
[2024-11-11 06:37] LABS: MANUAL DIFF FLAG NO
[2024-11-11 06:58] LABS: Anion Gap 10 (12-20); Blood Urea Nitrogen 18 mg/dL (9-16); Calcium 8.0 mg/dL (8.4-10.2); Carbon Dioxide 29 mmol/L (22-29); Chloride 102 mmol/L (96-108); Creatinine Clr Calc Pharmacy 51.8; Estimated Glomerular Filt Rate 40; Potassium 5.5 mmol/L (3.3-5.1); Sodium 135 mmol/L (135-145)
[2024-11-11 07:11] LABS: Hematocrit 27.0 % (42.0-52.0); Hemoglobin 8.9 g/dl (14.0-18.0); Imm Gran Abs Auto 0.04 X10*3/uL (0.00-0.03); Imm Gran Pct Auto 0.4 % (0.0-0.4); Lymphocytes Absolute Auto 1.9 X10*3/uL (1.2-4.9); Mean Corpuscular HGB Conc 33.0 g/dl (31.0-36.0); Mean Corpuscular Hemoglobin 28.5 pg (27.0-33.0); Mean Corpuscular Volume 86.5 fL (80.0-98.0); NRBC Abs Auto 0.000 X10*3/uL (0.0-0.012); NRBC Pct Auto 0.0 /100WBC (0.0-0.2); Platelet Count 186 X10*3/uL (160-400); Red Blood Count 3.12 X10*6/uL (4.60-5.80); White Blood Count 10.5 X10*3/uL (4.8-10.8)
--- NOTE | 2024-11-11 07:51 | HO.POSTANES ---
Post Anesthesia Evaluation Post Anesthesia Evaluation Date of Service: 11/11/24 Vital Signs: Vital Signs Temp Pulse Resp BP Pulse Ox O2 Del Method 11/11/24 03:51 104/56 L 11/11/24 03:37 96.8 F 60 18 99/54 L 94 Room Air 11/10/24 23:34 96.8 F 63 18 127/61 93 Room Air 11/10/24 20:00 98.1 F 68 18 132/60 92 Room Air Anesthesia: General Endotracheal-GETA Mental Status: Awake Pain Control: Satisfactory Nausea/Vomiting: None Hydration: Adequate Anesthesia-Related Issues: No Anes. Related Issues
--- NOTE | 2024-11-11 08:20 | PC.NURSE ---
BP running soft this AM /48 manually , Hospitalist service contacted , states to hold lasix, entresto, procar and carvediolo at this time.
--- NOTE | 2024-11-11 08:45 | HO.PM.IMPN ---
Subjective Subjective Date of Service: 11/11/24 Interval History: Seen and examined this morning Follow-up for medical consultation Patient blood pressure low noted to be 84/48 Patient denies dizziness, chest pain, palpitations Review of Systems Review of Systems: Yes all other systems are reviewed and are negative Constitutional Constitutional: Denies chills and Denies fever(s) ENT Ears, Nose, Mouth, and Throat: Denies dizziness Cardiovascular Cardiovascular: Denies chest pain Neurologic Neurologic: Denies dizziness Physical Exam Vital Signs: Vital Signs: Last Vital Signs Temp 96.8 F 11/11/24 07:40 Pulse 57 11/11/24 07:40 Resp 18 11/11/24 07:40 BP 84/48 L 11/11/24 07:40 Pulse Ox 93 11/11/24 07:40 O2 Del Method Room Air 11/11/24 07:40 O2 Flow Rate 2 11/10/24 13:10 BMI result Body Mass Index 26.5 Const: General: cooperative, comfortable, no acute distress, alert and awake Nutritional Appearance: average body habitus Orientation/consciousness: patient oriented x3 Resp: Effort & Inspection: normal respiratory effort, able to speak in complete sentences, no respiratory distress and no use of accessory muscles Auscultation: clear to auscultation bilaterally Cardio: Rate: regular rate GI: Inspection: No distended Neuro: General: patient oriented x3, moves all extremities and CN's II-XI intact bilaterally Extrem: Other: left hip bandage intact with mild staining Objective Data Active Medications Acetaminophen (Acetaminophen 325 Mg Tablet) 650 mg PO Q6H PRN PRN Reason: Pain, Mild 1-3,fever,headache Last Admin: 11/11/24 03:58 Dose: 650 mg Documented By: AC Albuterol Sulfate (Albuterol Sulfate 90 Mcg 8 Gm Inhaler) 1 puff INHALE Q6H PRN PRN Reason: Wheezing Albuterol/Ipratropium (Albuterol/Iprat 2.5/0.5mg 3 Ml Ampul.Neb) 3 ml INHALE Q4H PRN PRN Reason: Shortness Of Breath Or Wheezing Apixaban (Apixaban 5 Mg Tablet) 5 mg PO BID KATHI Calcium Carbonate (Calcium Carbonate 750 Mg Tab.Chew) 750 mg PO Q4H PRN PRN Reason: Heartburn Carvedilol (Carvedilol 25 Mg Tablet) 50 mg PO Q12H KATHI; Protocol Last Admin: 11/11/24 01:42 Dose: 50 mg Documented By: AC Celecoxib (Celecoxib 200 Mg Capsule) 200 mg PO BID REPLACED BY [facility] Last Admin: 11/10/24 20:53 Dose: 200 mg Documented By: AC Clonidine HCl (Clonidine Hcl 0.2 Mg Tablet) 0.2 mg PO BID PRN; Protocol PRN Reason: Anxiety Last Admin: 11/10/24 20:52 Dose: 0.2 mg Documented By: AC Enoxaparin Sodium (Enoxaparin Sodium 40 Mg/0.4 Ml Syringe) 40 mg SUBCUT Q24H KATHI Stop: 11/12/24 08:00 Finasteride (Finasteride 5 Mg Tablet) 5 mg PO DAILY REPLACED BY [facility] Last Admin: 11/11/24 08:32 Dose: Not Given Documented By: STEPHEN Non-Admin Reason: BP low md states hold Furosemide (Furosemide 40 Mg Tablet) 40 mg PO BID KATHI; Protocol Last Admin: 11/11/24 08:32 Dose: Not Given Documented By: STEPHEN Non-Admin Reason: bp low , md states hold Hydromorphone HCl (Hydromorphone Hcl 0.5 Mg/0.5 Ml Syringe) 0.25 mg IVPUSH Q4H PRN; Protocol PRN Reason: Pain, Severe (Pain Scale 7-10) Last Admin: 11/10/24 17:17 Dose: 0.25 mg Documented By: STEPHEN Hydroxyzine HCl (Hydroxyzine Hcl 25 Mg Tablet) 25 mg PO BID PRN PRN Reason: Anxiety Last Admin: 11/10/24 20:50 Dose: 12.5 mg Documented By: AC Lactated Ringer's (Lr) 1,000 mls @ 100 mls/hr IVCONT .Q10H KATHI Last Admin: 11/10/24 23:44 Dose: 100 mls/hr Documented By: SALAZAR Magnesium Hydroxide (Milk Of Magnesia 30 Ml Oral.Susp) 30 ml PO DAILY PRN PRN Reason: Constipation Melatonin (Melatonin 3 Mg Tablet) 6 mg PO BEDTIME PRN PRN Reason: Insomnia Mirtazapine (Mirtazapine 7.5 Mg Tablet) 7.5 mg PO BEDTIME PRN PRN Reason: Anxiety Last Admin: 11/10/24 20:52 Dose: 7.5 mg Documented By: AC Naloxone HCl (Naloxone Hcl 0.4 Mg/Ml Vial) 0.04 mg IVPUSH Q5M PRN PRN Reason: Excessive sedation or RR < 8 Naloxone HCl (Naloxone Hcl 0.4 Mg/Ml Vial) 0.04 mg IVPUSH Q5M PRN PRN Reason: Excessive sedation or RR < 8 Non-Formulary Medication (Ivabradine [Corlanor]) 2.5 mg PO BID REPLACED BY [facility] Ondansetron HCl (Ondansetron Hcl 4 Mg/2 Ml Vial) 4 mg IVPUSH Q8H PRN PRN Reason: Nausea and Vomiting Last Admin: 11/10/24 15:11 Dose: 4 mg Documented By: STEPHEN Oxycodone HCl (Oxycodone Hcl Immed Release 5 Mg Tablet) 10 mg PO Q4H PRN PRN Reason: Pain, Moderate(Pain Scale 4-6) Last Admin: 11/10/24 18:00 Dose: 10 mg Documented By: STEPHEN Oxycodone HCl (Oxycodone Hcl Er 10 Mg Tab.Er.12h) 10 mg PO BID REPLACED BY [facility] Last Admin: 11/10/24 20:55 Dose: 10 mg Documented By: AC Sacubitril/Valsartan (Sacubitril/Valsartan 97/103 1 Tab Tablet) 1 tab PO BID REPLACED BY [facility]; Protocol Last Admin: 11/11/24 08:32 Dose: Not Given Documented By: STEPHEN Non-Admin Reason: bp low md states hold Sertraline HCl (Sertraline Hcl 25 Mg Tablet) 25 mg PO DAILY REPLACED BY [facility] Last Admin: 11/10/24 13:48 Dose: Not Given Documented By: VALENTINA Non-Admin Reason: Taken at Home Sodium Chloride (0.9 % Sodium Chloride Flush 3 Ml Syringe) 3 ml IVFLUSH QSHIFT REPLACED BY [facility] Last Admin: 11/11/24 08:31 Dose: Not Given Documented By: STEPHEN Non-Admin Reason: IV Running Tamsulosin HCl (Tamsulosin Hcl 0.4 Mg Capsule) 0.4 mg PO .DAILY@1300 REPLACED BY [facility] Labs 11/11/24 06:31 11/11/24 06:31 Labs: Laboratory Results - last 24 hr 11/11/24 06:31 MCV 86.5 MCH 28.5 MCHC 33.0 RDW 13.5 Plt Count 186 D MPV 11.0 Immature Gran % (Auto) 0.4 Neut % (Auto) 67.4 Lymph % (Auto) 17.7 L Howard % (Auto) 14.1 H Eos % (Auto) 0.1 Baso % (Auto) 0.3 Lymph # (Auto) 1.9 Howard # (Auto) 1.5 H Eos # (Auto) 0.0 Baso # (Auto) 0.0 Abs Immat Gran (auto) 0.04 H Absolute Neuts (auto) 7.1 Absolute Nucleated RBC 0.000 Nucleated RBC % (auto) 0.0 Anion Gap 10 L Estim Creat Clear Calc 51.8 Estimated GFR 40 Fasting Glucose 123 H Calcium 8.0 L D Assessment and Plan (1) Nonischemic cardiomyopathy: Status: Acute Plan This is a 73 y/o male with history of nonischemic cardiomyopathy with recovered EF admitted to the ortho service for elective left ELY today. Hospitalist service was consulted for medical management. POD #1 s/p left ELY management as per orthopedic service acute on chronic normocytic anemia Acute drop likely due to acute blood loss from surgery. last H/H 12.8/38.2 on 10/20 Follow H/H closely Given underlying heart disease, low threshold for transfusion to keep hematocrit around 30 Hypotension pt asymptomatic likely due to degree of blood loss, baseline meds and pain meds hold bp meds and follow bp closely Nonischemic cardiomyopathy. s/p AICD with recovered EF Entresto, coreg and furosemide - am doses on hold for hypotension reassess this evening Monitor volume status while receiving IV fluid would not recommend IVF and lasix at the same time Paroxysmal a-fib. Bp soft, am dose of carvedilol on hold resume AC with Eliquis when safe from orthopedic team BPH. Continue tamsulosin and finasteride. Depression/anxiety. Continue sertraline, clonidine, mirtazapine and hydroxyzine. COPD. No acute exacerbation Bronchodilator therapy as needed. dvt ppx - as per orthopedic team Thank you for allowing us to participate in the care of this patient. We will follow along with you Quality Stroke Does the patient have a stroke diagnosis?: No VTE Prior VTE?: No VTE Risk Level:: Medical - moderate - high VTE Device Contraindication: N/A - Device Ordered VTE Drug Contraindication: N/A - Med Ordered
--- NOTE | 2024-11-11 09:10 | PC.NURSE ---
1 unit RBC ordered , pt currently declining blood transfusion at this time , Orthopedics and hospitalist service made aware .
[2024-11-11] MEDS: oxyCODONE HCl ER 10 MG TAB.ER.12H PO ×2 (09:23→20:53)
[2024-11-11] MEDS: Lactated Ringers 1,000 ML 100 ML IVCONT ×2 (09:47→19:04)
--- NOTE | 2024-11-11 09:48 | PC.NURSE ---
Ellie at bedside to discuss blood transfusion , pt declining at this time , BP remains low , providers aware .
--- NOTE | 2024-11-11 10:35 | P.PNOP_ITS ---
Subjective Subjective Date of Service: 11/11/24 Interval history: Postop day 1 status post left total hip arthroplasty No overnight events Resting comfortably in bed Pain is manageable Denies shortness of breath chest pain or palpitations Physical Exam Vital Signs: Vital Signs: Last Vital Signs Temp 96.8 F 11/11/24 07:40 Pulse 57 11/11/24 07:40 Resp 18 11/11/24 07:40 BP 92/50 L 11/11/24 10:12 Pulse Ox 93 11/11/24 07:40 O2 Del Method Room Air 11/11/24 07:40 O2 Flow Rate 2 11/10/24 13:10 BMI result Body Mass Index 26.5 Const: General: cooperative, healthy appearing and no acute distress Resp: Effort & Inspection: normal respiratory effort and able to speak in complete sentences Cardio: Rate: regular rate Peripheral pulses: Peripheral pulses 2+ thro ughout GI: Palpation (GI): Soft to palpation Skin: General skin exam: no rashes or lesions noted Extrem: Other: Lef hip bandage is clean dry and intact. Calf supple nontender neurovascularly intact. Procedures Date of Service Date of Service: 11/11/24 Progress Note: A&P Assessment and plan (1) Status post total hip replacement, left: Status: Acute Assessment and Plan: Pain management 1 dose of Lovenox and then we will resume Eliquis PT OT for left total hip arthroplasty posterior precautions and weight-bearing as tolerated Patient has had an episode of low blood pressure, 1 unit of blood transfusion was offered but the patient declined Medicine also recommends caution with fluids as the patient has a low EF Dispo pending PT eval Time Spent With Patient Time: Total time managing care of this patient today ____ minutes. Quality Stroke Does the patient have a stroke diagnosis?: No VTE Prior VTE?: No VTE Risk Level:: Medical - moderate - high VTE Device Contraindication: N/A - Device Ordered VTE Drug Contraindication: N/A - Med Ordered
[2024-11-11] MEDS: Albuterol Sulfate 90 MCG 8 GM INHALER 1 PUFF INHALE (10:45)
--- NOTE | 2024-11-11 16:07 | MHC.CM.PN ---
Patient lives in a home alone. Ambulates w/ a cane. Reports he is independent w/ ADL's, but feels he could use assistance. Has a friend that lives nearby that assists w/ iADL's several times a week (Sarahy Froylan). No current services. PCP Donaldo Fenton MD No HCP. CM provided education and offered assistance. Patient would like to consider. Will follow up tomorrow. DP: PT rec STR. Patient has Medicare and no QHS. Referrals to acute rehabs. Awaiting response. Not cleared for dc at this time. CM will continue to follow.
[2024-11-12 03:26] VITALS: BP 100/54; PULSE 65; RESP 16; TEMP 36.5
[2024-11-12] MEDS: Lactated Ringers 1,000 ML 100 ML IVCONT (04:45)
[2024-11-12 06:15] LABS: MANUAL DIFF FLAG NO
[2024-11-12 06:47] LABS: Anion Gap 9 (12-20); Blood Urea Nitrogen 24 mg/dL (9-16); Calcium 8.3 mg/dL (8.4-10.2); Carbon Dioxide 29 mmol/L (22-29); Chloride 106 mmol/L (96-108); Creatinine Clr Calc Pharmacy 52.1; Estimated Glomerular Filt Rate 40; Potassium 5.1 mmol/L (3.3-5.1); Sodium 139 mmol/L (135-145)
[2024-11-12 07:02] LABS: Hematocrit 26.1 % (42.0-52.0); Hemoglobin 8.6 g/dl (14.0-18.0); Imm Gran Abs Auto 0.05 X10*3/uL (0.00-0.03); Imm Gran Pct Auto 0.5 % (0.0-0.4); Lymphocytes Absolute Auto 1.7 X10*3/uL (1.2-4.9); Mean Corpuscular HGB Conc 33.0 g/dl (31.0-36.0); Mean Corpuscular Hemoglobin 28.7 pg (27.0-33.0); Mean Corpuscular Volume 87.0 fL (80.0-98.0); NRBC Abs Auto 0.000 X10*3/uL (0.0-0.012); NRBC Pct Auto 0.0 /100WBC (0.0-0.2); Platelet Count 184 X10*3/uL (160-400); Red Blood Count 3.00 X10*6/uL (4.60-5.80); White Blood Count 10.3 X10*3/uL (4.8-10.8)
[2024-11-12] MEDS: oxyCODONE HCl ER 10 MG TAB.ER.12H PO (07:17)
[2024-11-12] MEDS: oxyCODONE HCl Immed Release 5 MG TABLET 10 MG PO ×3 (07:18→12:06)
[2024-11-12 07:28] VITALS: BP 104/59; BP 121/58; PULSE 62; RESP 16; TEMP 37.3; O2SAT 91
--- NOTE | 2024-11-12 08:17 | P.PNOP_ITS ---
Subjective Subjective Date of Service: 11/12/24 Interval history: Postop day 2 status post left total hip arthroplasty No overnight events Resting comfortably in bed Pain is manageable Denies shortness of breath chest pain or palpitations Physical Exam Vital Signs: Vital Signs: Last Vital Signs Temp 99.1 F 11/12/24 07:28 Pulse 62 11/12/24 07:28 Resp 16 11/12/24 07:28 BP 104/59 L 11/12/24 07:28 Pulse Ox 91 L 11/12/24 07:28 O2 Del Method Room Air 11/12/24 07:28 O2 Flow Rate 2.0 11/11/24 11:30 BMI result Body Mass Index 26.5 Const: General: cooperative, healthy appearing and no acute distress Resp: Effort & Inspection: normal respiratory effort and able to speak in complete sentences Cardio: Rate: regular rate Peripheral pulses: Peripheral pulses 2+ thro ughout GI: Palpation (GI): Soft to palpation Skin: General skin exam: no rashes or lesions noted Extrem: Other: Lef hip incision is clean dry and intact. Calf supple nontender neurovascularly intact. Procedures Date of Service Date of Service: 11/12/24 Progress Note: A&P Assessment and plan (1) Status post total hip replacement, left: Status: Acute Assessment and Plan: Pain management Resume elimarcelinois PT OT for left total hip arthroplasty posterior precautions and weight-bearing as tolerated Medicine recommends caution with fluids as the patient has a low EF Dispo pending STR placement Time Spent With Patient Time: Total time managing care of this patient today ____ minutes. Quality Stroke Does the patient have a stroke diagnosis?: No VTE Prior VTE?: No VTE Risk Level:: Medical - moderate - high VTE Device Contraindication: N/A - Device Ordered VTE Drug Contraindication: N/A - Med Ordered
--- NOTE | 2024-11-12 08:34 | P.DS_ITS ---
DS: Providers Provider Date of Service: 11/12/24 Date of discharge: 11/12/24 Primary care physician: Donaldo Fenton III, MD Consults: 11/10/24 13:21 Consult to Case Management Routine Comment: No help at home - STR Consult to Hospitalist Routine Comment: Consulting Provider: [facility] Hospitalists Reason For Exam: routine medical managment DS: Diagnosis Discharge Diagnosis (1) Status post total hip replacement, left: Status: Acute DS: Summary Hospital Course Hospital Course: The patient underwent a successful left total hip arthroplasty on with Dr Vincent , was transferred to PACU and then to the floor to recover. During their stay, their vitals were stable, afebrile at 99.1 . Labs were unremarkable, H/H 8.6/26.1. POD 1 he was started on Lovenox once a day for DVT ppx x1 dose and then resumed his eliquis on 11/12/24/ He also received Physical Therapy and Occupation therapy services twice a day. Physical therapy should include gait training, core and lumbar strength, glute strength. Posterior precautions intact. WBAT. Prior to discharge, her dressing was changed, incision clean dry and intact, new Aquacel dressing applied. The Aquacel dressing should remain intact and dry at all times. Any concerns with the dressing, please contact orthopedic office. No showering. The plan is to be discharged to acute rehab. Time Attestation Discharge Coordination Time (in mins): 30 Quality: Safe Use of Opioids Does Pt have an Active Cancer Diagnosis on the Problem List?: No Quality: Stroke Does the patient have a stroke diagnosis?: No Physical Exam Vital Signs: Vital Signs: Last Vital Signs Temp 99.1 F 11/12/24 07:28 Pulse 62 11/12/24 07:28 Resp 16 11/12/24 07:28 BP 104/59 L 11/12/24 07:28 Pulse Ox 91 L 11/12/24 07:28 O2 Del Method Room Air 11/12/24 07:28 O2 Flow Rate 2.0 11/11/24 11:30 BMI result Body Mass Index 26.5 DS: Data Data Completed and Pending Pending studies at discharge: Pending at discharge 11/10/24 10:48 Surgical [PTH] Routine Labs on day of discharge: Laboratory Results - last 24 hr 11/10/24 11/12/24 07:53 05:39 WBC 10.3 RBC 3.00 L Hgb 8.6 L Hct 26.1 L MCV 87.0 MCH 28.7 MCHC 33.0 RDW 13.6 Plt Count 184 MPV 11.3 Immature Gran % (Auto) 0.5 H Neut % (Auto) 68.3 Lymph % (Auto) 16.3 L Barren % (Auto) 14.1 H Eos % (Auto) 0.6 Baso % (Auto) 0.2 Lymph # (Auto) 1.7 Barren # (Auto) 1.5 H Eos # (Auto) 0.1 Baso # (Auto) 0.0 Abs Immat Gran (auto) 0.05 H Absolute Neuts (auto) 7.1 Absolute Nucleated RBC 0.000 Nucleated RBC % (auto) 0.0 Sodium 139 Potassium 5.1 Chloride 106 Carbon Dioxide 29 Anion Gap 9 L BUN 24 H Creatinine 1.68 H Estim Creat Clear Calc 52.1 Estimated GFR 40 Fasting Glucose 97 Calcium 8.3 L Blood Type O Positive Antibody Screen NEGATIVE Crossmatch See Detail Discharge Plan Discharge Patient Disposition: Xfer Inpatient Rehab Fac Referrals: [facility] [Outside] - 3-5 Days Referral Note: acute rehab Emma Flowers PA-C [Physician Selling Specialist, Orthopedics] - 1 Week Referral Note: 11/25/24 14:30 [facility] Orthopedic Surgeons Emma Flowers PA-C Discharge Medications: New oxycodone 10 mg tablet 10 mg PO Q4H PRN (Reason: Pain, Moderate(Pain Scale 4-6)) 7 Days Qty: 42 0RF Rx Instructions: Partial Fill upon patient request. celecoxib 200 mg Capsule 200 mg PO BID 30 Days Qty: 60 0RF acetaminophen 325 mg Tablet 650 mg PO Q6H PRN (Reason: Pain, Mild 1-3,Fever,Headache) 30 Days Qty: 240 0RF Continued Eliquis 5 mg tablet 5 mg PO BID 90 Days Qty: 180 3RF carvedilol 25 mg tablet 50 mg PO Q12H Qty: 360 3RF Entresto 97-103 mg tablet 1 tab PO BID Qty: 180 3RF (DME) melvi Misc See Rx Instructions .MEDSUPPLY Qty: 1 0RF Rx Instructions: Folding front wheeled walker clonidine HCl 0.2 mg tablet 0.2 mg PO BID PRN (Reason: Anxiety) sertraline 25 mg tablet 25 mg PO DAILY mirtazapine 7.5 mg tablet 7.5 mg PO BEDTIME PRN (Reason: Anxiety) albuterol sulfate 90 mcg/actuation HFA aerosol inhaler 1 puff INHALATION Q6H PRN (Reason: wheezing) finasteride 5 mg tablet 5 mg PO DAILY tamsulosin 0.4 mg capsule 0.4 mg PO .DAILY@1300 furosemide 40 mg tablet 40 mg PO BID Rx Instructions: 40mg am and 1/2 pm ipratropium-albuterol 0.5 mg-3 mg(2.5 mg base)/3 mL solution for nebulization 3 ml inhalation Q4H PRN (Reason: Shortness Of Breath Or Wheezing) hydroxyzine HCl 25 mg tablet 25 mg PO BID PRN (Reason: Anxiety) Corlanor 5 mg tablet 2.5 mg PO BID Qty: 180 3RF Discontinued oxycodone-acetaminophen 7.5-325 mg tablet 1 tab PO 5XD PRN (Reason: Pain) Discharge Orders: Discharge Order (Routine); Ordered 11/12/24 Ordered By: Jace Renteria Diet: Regular diet Activity on Discharge: Use cane or walker Activity Restrictions/Additional Instructions: Physical Therapy for ROM 0-120, quad strength, gait training. Use walker for ambulation Limit stair climbing No shower or tub bath No driving for 6 weeks Continue anticoagulant Keep Aquacel dressing clean, dry and intact. Follow up with orthopedics in 2 weeks -Bandage/Incision Site Care: -Ice 20mins at a time -Make sure you use a towel or cloth on your skin as a barrier -DO NOT remove the bandage -Keep Bandage clean, dry and intact -Do not get the bandage wet: -No tub bath, pools or hot tubs -If there are any concerns regarding the bandage please call orthopedics: [phone] -Knee Precautions: -Refrain from putting pillows under the knee -Keep leg straight while resting the knee -Avoid low chairs and deep couches -Use supportive shoes with nonslip soles -Physical Therapy: -Patient is WBAT with the use of a walker -Range of Motion: 0-120 degrees. -Strengthening: Quadriceps and hip muscles -Walking: Gait training and gradually increasing distance with walker -Ankle pumps and incentive spirometry to limit the risk of blood clot -Diet: -Resume regular diet as tolerated. -Drink plenty of fluids and eat a high-fiber foods to avoid constipation -This is a common side effect of pain medication) -Take stool softeners as prescribed -Blood Clot Prevention: -Continue Eliquis -Perform ankle pumps and walk frequently with the walker and assistance if needed -Report calf pain, swelling, or shortness of breath immediately Print Language: Swedish
[2024-11-12] MEDS: Albuterol/Iprat 2.5/0.5MG 3 ML AMPUL.NEB INHALE (09:03)
[2024-11-12 09:04] VITALS: PULSE 69; RESP 17; O2SAT 91
--- NOTE | 2024-11-12 09:32 | P.CONHOSP_ITS ---
History of Present Illness Data of Consult Primary Care Provider: Donaldo Fenton III, MD [facility] Medical History Ambulates with cane Wears dentures PAF (paroxysmal atrial fibrillation) BPH (benign prostatic hyperplasia) Osteoarthritis Depression Anxiety COPD (chronic obstructive pulmonary disease) Snores Hx of fracture of patella Heart failure with reduced ejection fraction ICD (implantable cardioverter-defibrillator) in place Mitral regurgitation Nonischemic cardiomyopathy Family History Father Sudden cardiac Mother No problems noted. Surgical History History of implantable cardioverter-defibrillator (ICD) placement (05/04/15) Hx of cardiac cath Hx of knee surgery (~1997) Social History Household Members: None Housing: Apartment Are you a primary hearing healthcare practitioner to a significant other at home: No Do you presently have visiting nurse or other home services: No Patient Tobacco Use Status: Former Tobacco user Tobacco use type: Cigarette Smoked in Last 30 Days: No Use of substances other than those prescribed or required for medical reasons: No Currently Displaying Signs/Symptoms of Drug Intoxication Withdrawal: No Have you been hit, kicked, punched, or otherwise hurt by someone within the past year? 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 Allergies Allergy/AdvReac Type Severity Reaction Status Date / Time No Known Allergies Allergy Verified 11/10/24 07:10 Active Medications: Current Medications Acetaminophen (Acetaminophen 325 Mg Tablet) 650 mg PO Q6H PRN PRN Reason: Pain, Mild 1-3,fever,headache Last Admin: 11/11/24 03:58 Dose: 650 mg Albuterol Sulfate (Albuterol Sulfate 90 Mcg 8 Gm Inhaler) 1 puff INHALE Q6H PRN PRN Reason: Wheezing Last Admin: 11/11/24 10:45 Dose: 1 puff Albuterol/Ipratropium (Albuterol/Iprat 2.5/0.5mg 3 Ml Ampul.Neb) 3 ml INHALE Q4H PRN PRN Reason: Shortness Of Breath Or Wheezing Last Admin: 11/12/24 09:03 Dose: 3 ml Apixaban (Apixaban 5 Mg Tablet) 5 mg PO BID [facility] Last Admin: 11/12/24 07:19 Dose: 5 mg Calcium Carbonate (Calcium Carbonate 750 Mg Tab.Chew) 750 mg PO Q4H PRN PRN Reason: Heartburn Carvedilol (Carvedilol 25 Mg Tablet) 50 mg PO Q12H [facility]; Protocol Last Admin: 11/12/24 01:25 Dose: Not Given Celecoxib (Celecoxib 200 Mg Capsule) 200 mg PO BID [facility] Last Admin: 11/12/24 07:17 Dose: 200 mg Clonidine HCl (Clonidine Hcl 0.2 Mg Tablet) 0.2 mg PO BID PRN; Protocol On Hold: 11/12/24 07:27 PRN Reason: Anxiety Last Admin: 11/10/24 20:52 Dose: 0.2 mg Finasteride (Finasteride 5 Mg Tablet) 5 mg PO DAILY [facility] Last Admin: 11/12/24 07:18 Dose: 5 mg Furosemide (Furosemide 40 Mg Tablet) 40 mg PO BID KATHI; Protocol On Hold: 11/11/24 09:00 Last Admin: 11/11/24 08:32 Dose: Not Given Hydromorphone HCl (Hydromorphone Hcl 0.5 Mg/0.5 Ml Syringe) 0.25 mg IVPUSH Q4H PRN; Protocol PRN Reason: Pain, Severe (Pain Scale 7-10) Last Admin: 11/10/24 17:17 Dose: 0.25 mg Hydroxyzine HCl (Hydroxyzine Hcl 25 Mg Tablet) 25 mg PO BID PRN PRN Reason: Anxiety Last Admin: 11/11/24 21:01 Dose: 12.5 mg Lactated Ringer's (Lr) 1,000 mls @ 100 mls/hr IVCONT .Q10H KATHI Last Admin: 11/12/24 04:45 Dose: 100 mls/hr Magnesium Hydroxide (Milk Of Magnesia 30 Ml Oral.Susp) 30 ml PO DAILY PRN PRN Reason: Constipation Melatonin (Melatonin 3 Mg Tablet) 6 mg PO BEDTIME PRN PRN Reason: Insomnia Mirtazapine (Mirtazapine 7.5 Mg Tablet) 7.5 mg PO BEDTIME PRN PRN Reason: Anxiety Last Admin: 11/11/24 21:01 Dose: 7.5 mg Naloxone HCl (Naloxone Hcl 0.4 Mg/Ml Vial) 0.04 mg IVPUSH Q5M PRN PRN Reason: Excessive sedation or RR < 8 Naloxone HCl (Naloxone Hcl 0.4 Mg/Ml Vial) 0.04 mg IVPUSH Q5M PRN PRN Reason: Excessive sedation or RR < 8 Non-Formulary Medication (Ivabradine [Corlanor]) 2.5 mg PO BID [facility] Ondansetron HCl (Ondansetron Hcl 4 Mg/2 Ml Vial) 4 mg IVPUSH Q8H PRN PRN Reason: Nausea and Vomiting Last Admin: 11/11/24 17:16 Dose: 4 mg Oxycodone HCl (Oxycodone Hcl Immed Release 5 Mg Tablet) 10 mg PO Q4H PRN PRN Reason: Pain, Moderate(Pain Scale 4-6) Last Admin: 11/12/24 07:18 Dose: 10 mg Oxycodone HCl (Oxycodone Hcl Er 10 Mg Tab.Er.12h) 10 mg PO BID [facility] Last Admin: 11/12/24 07:17 Dose: 10 mg Sacubitril/Valsartan (Sacubitril/Valsartan 97/103 1 Tab Tablet) 1 tab PO BID [facility]; Protocol On Hold: 11/12/24 07:26 Last Admin: 11/11/24 21:12 Dose: Not Given Sertraline HCl (Sertraline Hcl 25 Mg Tablet) 25 mg PO DAILY [facility] Last Admin: 11/12/24 07:18 Dose: 25 mg Sodium Chloride (0.9 % Sodium Chloride Flush 3 Ml Syringe) [facility] Last Admin: 11/12/24 07:17 Dose: Not Given Tamsulosin HCl (Tamsulosin Hcl 0.4 Mg Capsule) 0.4 mg PO .DAILY@1300 [facility] Home Medications ?Medication ?Instructions ?Recorded ?Confirmed ?Last Taken ?Type finasteride 5 mg tablet 5 mg PO DAILY 05/02/2010/2011/10/24 05:00 History tamsulosin 0.4 mg capsule 0.4 mg PO .DAILY@1300 10/20/24 11/09/24 History furosemide 40 mg tablet 40 mg PO BID 02/01/2111/09/24 History Held on 11/12/24. Instructions: pt states he takes 40 mg in am and 20 mg in pm; hold for low bp. resumes as soon as bp allows ipratropium 0.5 mg-albuterol 3 mg 3 ml inhalation Q4H PRN Shortness 07/31/21 10/20/24 Unknown History (2.5 mg base)/3 mL nebulization Of Breath Or Wheezing soln hydroxyzine HCl 25 mg tablet 25 mg PO BID PRN Anxiety 02/05/24 10/20/24 11/09/24 History albuterol sulfate 90 mcg/actuation 1 puff inhalation Q 6H PRN wheezing 10/20/24 10/20/24 11/10/24 05:00 History aerosol inhaler clonidine HCl 0.2 mg tablet 0.2 mg PO BID PRN Anxiety 10/20/24 10/20/24 11/09/24 History Held on 11/12/24. Instructions: hold for soft BP mirtazapine 7.5 mg tablet 7.5 mg PO BEDTIME PRN Anxiet y 10/20/24 10/20/24 11/09/24 History sertraline 25 mg tablet 25 mg PO DAILY 10/20/24 08/09/0811/09/24 History Physical Exam 2 Vital Signs and Narrative: Vital Signs: Last Vital Signs Temp 99.1 F 11/12/24 07:28 Pulse 69 11/12/24 09:04 Resp 17 11/12/24 09:04 BP 104/59 L 11/12/24 07:28 Pulse Ox 91 L 11/12/24 07:28 O2 Del Method Room Air 11/12/24 07:28 O2 Flow Rate 2.0 11/11/24 11:30 BMI result Body Mass Index 26.5 Results Labs 11/12/24 05:39 11/12/24 05:39 Labs: Laboratory Results - last 24 hr 11/12/24 05:39 MCV 87.0 MCH 28.7 MCHC 33.0 RDW 13.6 Plt Count 184 MPV 11.3 Immature Gran % (Auto) 0.5 H Neut % (Auto) 68.3 Lymph % (Auto) 16.3 L [place] % (Auto) 14.1 H Eos % (Auto) 0.6 Baso % (Auto) 0.2 Lymph # (Auto) 1.7 [place] # (Auto) 1.5 H Eos # (Auto) 0.1 Baso # (Auto) 0.0 Abs Immat Gran (auto) 0.05 H Absolute Neuts (auto) 7.1 Absolute Nucleated RBC 0.000 Nucleated RBC % (auto) 0.0 Anion Gap 9 L Estim Creat Clear Calc 52.1 Estimated GFR 40 Fasting Glucose 97 Calcium 8.3 L
--- NOTE | 2024-11-12 09:38 | P.PNIM_ITS ---
Subjective Subjective Date of Service: 11/12/24 Interval History: Seen and examined this morning Follow-up for medical consultation Blood pressure remains on soft side but patient is asymptomatic, no shortness a breath, no chest pain, no palpitation Review of Systems Review of Systems: Yes all other systems are reviewed and are negative Constitutional Constitutional: Denies chills and Denies fever(s) ENT Ears, Nose, Mouth, and Throat: Denies dizziness Cardiovascular Cardiovascular: Denies chest pain, Denies palpitations and Denies dyspnea Respiratory Respiratory: Denies cough and Denies dyspnea Gastrointestinal Gastrointestinal: Denies abdominal pain, Denies nausea and Denies vomiting Neurologic Neurologic: Denies dizziness Endocrine Endocrine: Denies palpitations Physical Exam 2 Vital Signs: Vital Signs: Last Vital Signs Temp 99.1 F 11/12/24 07:28 Pulse 69 11/12/24 09:04 Resp 17 11/12/24 09:04 BP 104/59 L 11/12/24 07:28 Pulse Ox 91 L 11/12/24 07:28 O2 Del Method Room Air 11/12/24 07:28 O2 Flow Rate 2.0 11/11/24 11:30 BMI result Body Mass Index 26.5 Const: General: cooperative, comfortable, no acute distress, alert and awake Nutritional Appearance: average body habitus Orientation/consciousness: p atient oriented x3 Resp: Effort & Inspection: normal respiratory effort, able to speak in complete sentences, no respiratory distress and no use of accessory muscles A uscultation: clear to auscultation bilaterally Cardio: Rate: regular rate GI: Inspection: No distended Neuro: General: patient oriented x3, moves all extremities and CN's II-XI intact bilaterally Extrem: Other: left hip bandage intact with mild staining Objective Data Active Medications Acetaminophen (Acetaminophen 325 Mg Tablet) 650 mg PO Q6H PRN PRN Reason: Pain, Mild 1-3,fever,headache Last Admin: 11/11/24 03:58 Dose: 650 mg Documented By: AC Albuterol Sulfate (Albuterol Sulfate 90 Mcg 8 Gm Inhaler) 1 puff INHALE Q6H PRN PRN Reason: Wheezing Last Admin: 11/11/24 10:45 Dose: 1 puff Documented By: STEPHEN Albuterol/Ipratropium (Albuterol/Iprat 2.5/0.5mg 3 Ml Ampul.Neb) 3 ml INHALE Q4H PRN PRN Reason: Shortness Of Breath Or Wheezing Last Admin: 11/12/24 09:03 Dose: 3 ml Documented By: RHETT Apixaban (Apixaban 5 Mg Tablet) 5 mg PO BID [facility] Last Admin: 11/12/24 07:19 Dose: 5 mg Documented By: VALENTINA Calcium Carbonate (Calcium Carbonate 750 Mg Tab.Chew) 750 mg PO Q4H PRN PRN Reason: Heartburn Carvedilol (Carvedilol 25 Mg Tablet) 50 mg PO Q12H [facility]; Protocol Last Admin: 11/12/24 01:25 Dose: Not Given Documented By: BREEZY Non-Admin Reason: Physician Held Med Celecoxib (Celecoxib 200 Mg Capsule) 200 mg PO BID [facility] Last Admin: 11/12/24 07:17 Dose: 200 mg Documented By: VALENTNIA Clonidine HCl (Clonidine Hcl 0.2 Mg Tablet) 0.2 mg PO BID PRN; Protocol On Hold: 11/12/24 07:27 PRN Reason: Anxiety Last Admin: 11/10/24 20:52 Dose: 0.2 mg Documented By: AC Finasteride (Finasteride 5 Mg Tablet) 5 mg PO DAILY [facility] Last Admin: 11/12/24 07:18 Dose: 5 mg Documented By: VALENTINA Furosemide (Furosemide 40 Mg Tablet) 40 mg PO BID [facility]; Protocol On Hold: 11/11/24 09:00 Last Admin: 11/11/24 08:32 Dose: Not Given Documented By: STEPHEN Non-Admin Reason: bp low , md states hold Hydromorphone HCl (Hydromorphone Hcl 0.5 Mg/0.5 Ml Syringe) 0.25 mg IVPUSH Q4H PRN; Protocol PRN Reason: Pain, Severe (Pain Scale 7-10) Last Admin: 11/10/24 17:17 Dose: 0.25 mg Documented By: STEPHEN Hydroxyzine HCl (Hydroxyzine Hcl 25 Mg Tablet) 25 mg PO BID PRN PRN Reason: Anxiety Last Admin: 11/11/24 21:01 Dose: 12.5 mg Documented By: SALAZAR Comments: pt requested 12.5 mg. Lactated Ringer's (Lr) 1,000 mls @ 100 mls/hr IVCONT .Q10H [facility] Last Admin: 11/12/24 04:45 Dose: 100 mls/hr Documented By: BREEZY Magnesium Hydroxide (Milk Of Magnesia 30 Ml Oral.Susp) 30 ml PO DAILY PRN PRN Reason: Constipation Melatonin (Melatonin 3 Mg Tablet) 6 mg PO BEDTIME PRN PRN Reason: Insomnia Mirtazapine (Mirtazapine 7.5 Mg Tablet) 7.5 mg PO BEDTIME PRN PRN Reason: Anxiety Last Admin: 11/11/24 21:01 Dose: 7.5 mg Documented By: SALAZAR Naloxone HCl (Naloxone Hcl 0.4 Mg/Ml Vial) 0.04 mg IVPUSH Q5M PRN PRN Reason: Excessive sedation or RR < 8 Naloxone HCl (Naloxone Hcl 0.4 Mg/Ml Vial) 0.04 mg IVPUSH Q5M PRN PRN Reason: Excessive sedation or RR < 8 Non-Formulary Medication (Ivabradine [Corlanor]) 2.5 mg PO BID [facility] Ondansetron HCl (Ondansetron Hcl 4 Mg/2 Ml Vial) 4 mg IVPUSH Q8H PRN PRN Reason: Nausea and Vomiting Last Admin: 11/11/24 17:16 Dose: 4 mg Documented By: STEPHEN Oxycodone HCl (Oxycodone Hcl Immed Release 5 Mg Tablet) 10 mg PO Q4H PRN PRN Reason: Pain, Moderate(Pain Scale 4-6) Last Admin: 11/12/24 07:18 Dose: 10 mg Documented By: VALENTINA Oxycodone HCl (Oxycodone Hcl Er 10 Mg Tab.Er.12h) 10 mg PO BID [facility] Last Admin: 11/12/24 07:17 Dose: 10 mg Documented By: VALENTINA Sacubitril/Valsartan (Sacubitril/Valsartan 97/103 1 Tab Tablet) 1 tab PO BID [facility]; Protocol On Hold: 11/12/24 07:26 Last Admin: 11/11/24 21:12 Dose: Not Given Sertraline HCl (Sertraline Hcl 25 Mg Tablet) 25 mg PO DAILY [facility] Last Admin: 11/12/24 07:18 Dose: 25 mg Documented By: VALENTINA Sodium Chloride (0.9 % Sodium Chloride Flush 3 Ml Syringe) 3 ml IVFLUSH QSHIFT [facility] Last Admin: 11/12/24 07:17 Dose: Not Given Documented By: VALENTINA Non-Admin Reason: IV Running Tamsulosin HCl (Tamsulosin Hcl 0.4 Mg Capsule) 0.4 mg PO .DAILY@1300 [facility] Labs 11/12/24 05:39 11/12/24 05:39 Labs: Laboratory Results - last 24 hr 11/12/24 05:39 MCV 87.0 MCH 28.7 MCHC 33.0 RDW 13.6 Plt Count 184 MPV 11.3 Immature Gran % (Auto) 0.5 H Neut % (Auto) 68.3 Lymph % (Auto) 16.3 L [place] % (Auto) 14.1 H Eos % (Auto) 0.6 Baso % (Auto) 0.2 Lymph # (Auto) 1.7 [place] # (Auto) 1.5 H Eos # (Auto) 0.1 Baso # (Auto) 0.0 Abs Immat Gran (auto) 0.05 H Absolute Neuts (auto) 7.1 Absolute Nucleated RBC 0.000 Nucleated RBC % (auto) 0.0 Anion Gap 9 L Estim Creat Clear Calc 52.1 Estimated GFR 40 Fasting Glucose 97 Calcium 8.3 L Assessment and Plan (1) Nonischemic cardiomyopathy: Status: Acute Plan This is a 73 y/o male with history of nonischemic cardiomyopathy with recovered EF admitted to the ortho service for elective left ELY today. Hospitalist service was consulted for medical management. POD #2 s/p left ELY management as per orthopedic service acute on chronic normocytic anemia Acute drop likely due to acute blood loss from surgery. last H/H 12.8/38.2 on 10/20 Given underlying heart disease, low threshold for transfusion to keep hematocrit around 30 - blood transfusion offered, patient has declined would recommend outpatient follow up Hypotension pt asymptomatic likely due to degree of blood loss, baseline meds and pain meds hold lasix, hold entresto on discharge - gradually resume when bp improves Nonischemic cardiomyopathy. s/p AICD with recovered EF Entresto, coreg and furosemide - am doses on hold for hypotension reassess this evening Monitor volume status while receiving IV fluid Paroxysmal a-fib. Bp soft, am dose of carvedilol on hold resume AC with Eliquis when safe from orthopedic team BPH. Continue tamsulosin and finasteride. Depression/anxiety. Continue sertraline, clonidine, mirtazapine and hydroxyzine. COPD. No acute exacerbation Bronchodilator therapy as needed. dvt ppx - as per orthopedic team Thank you for allowing us to participate in the care of this patient. We will follow along with you Quality Stroke Does the patient have a stroke diagnosis?: No VTE Prior VTE?: No VTE Risk Level:: Medical - moderate - high VTE Device Contraindication: N/A - Device Ordered VTE Drug Contraindication: N/A - Med Ordered
--- NOTE | 2024-11-12 09:44 | MHC.CM.PN ---
Patient accepted a bed at [facility] for acute rehab. Per ortho PA, cleared for dc today. Transport scheduled for 1pm. Patient, RN, ortho PA aware. Patient completed HCP naming his daughter, Pawel, as HCA.
[2024-11-12 11:48] VITALS: BP 104/53; PULSE 64; RESP 16; TEMP 36.3; O2SAT 91
--- NOTE | 2024-11-17 11:48 | P.OP_ITS ---
Operative Note Operative Note Date of Service: 11/10/24 Narrative: Date of Service: 11/10/24 Pre-op diagnosis: Left hip OA Post-op diagnosis: same Procedure: Left ELY Implants: [place] 58/#9 127/+0 36 ceramic Surgeon: Harpreet Vincent MD Anesthesia: GETA Was an Creative Services Coordinator used for this Procedure?: Yes Creative Services Coordinator: Emma Flowers Estimated blood loss (mL): 200 IV fluids (mL): 1,000 Pathology: other Condition: stable Disposition: PACU Procedure in detail: Patient was brought into the operating room and placed in the right lateral decubitus position. All bony prominences were well padded and the limb was prepped and draped in standard sterile fashion. A time-out was called to id entify proper site procedure proper surgeon IV antibiotics and 1 g of tranexamic acid were administered. I began by making a curvilinear incision over the posterolateral aspect of the greater trochanter. Dissection was taken down to the tensor fascia which was incised in line with the incision and a Charnley retractor was placed. Cautery was used to maintain hemostasis. The hip was internally rotated and the external rotators were identified. The vessels were cauterized and a full-thickness capsular/external rotator layer was developed starting just proximal to the piriformis. This layer was tagged and a dull Hohmann retractor was placed underneath the neck in the hip was dislocated. A neck cut was made 1 cm proximal to the lesser trochanter and the head and neck were removed and measured 54mm on the back table. The head was deformed and eburnated. I then removed the labrum and cauterized the fovea. I started with a 48 reamer and medialized to the inner table. I sequentially reamed up to a size 58 and impacted a 58mm cup at 45 degrees of inclination and 25 degrees of version. 2 6.5 mm acetabular screws were inserted into the superior safe zone using standard AO technique. I then placed a 20 deg posterior lipped liner and turned my attention to the femur. I identified the piriformis insertion and used this as a starting point for my que cutter. The medius tendon was protected with a Hibs retractor. A Charnley awl was inserted in the canal and a curved curette used to remove the lateral bone. I irrigated copiously. I then sequentially broached in the patient's natu ral version to a size 9 and placed my trial implants. I used a #9/127/+0 based on my pre-operative template. I removed all instrumentation and copiously irrigated. I placed my final femoral implant and again took the hip through range of motion and was satisfied with the stability and length. The final +0 implant was impacted in place and the hip reduced. I then irrigated copiously and placed 1 g of local tranexamic acid. I performed a capsular closure with 2.0 fiberwire, Cosme's fascia with 0 Vicryl, subcuticular with 3-0 Vicryl and the skin with campbell. Zynrelif was injected around the joint and under the ITB prior to ITB closure totalling 12 ml and then the final 2 ml was placed under the skin just prior to closure with 3.0 Vicryl and then followed by campbell in the skin. Patient was placed into a sterile dressing. Patient was extubated brought to the recovery room in stable condition. There were no known complications.
== END 2024-11-12 12:55 ==
LOC: HO.SSS 06:43 → HO.S3 13:13
PROVIDERS: Nurse Practitioner; Physician Assistant; PCP Internal Medicine; Visit Provider Orthopaedic Surgery
PROC: (CPT 27130; principal; 2024-11-10 09:40)
DX: M87.052 Idiopathic aseptic necrosis of left femur (principal); M17.12 Unilateral primary osteoarthritis, left knee; D64.9 Anemia, unspecified; I42.8 Other cardiomyopathies; I95.9 Hypotension, unspecified; I48.0 Paroxysmal atrial fibrillation; Z95.810 Presence of automatic (implantable) cardiac defibrillator; J44.9 Chronic obstructive pulmonary disease, unspecified; N40.0 Benign prostatic hyperplasia without lower urinary tract symptoms; F41.8 Other specified anxiety disorders; Z79.01 Long term (current) use of anticoagulants; Z99.89 Dependence on other enabling machines and devices; Z79.899 Other long term (current) drug therapy
CPT/HCPCS: 27130; 36415; 72170; 80048; 85025; 85027; 86850; 86900; 86901; 86923; 87640; 87641; 88304; 88311; 97162; 97166; 97530; 97535; C1713; C1776; C9088; J0131; J0690; J1100; J1171; J1650; J2003; J2250; J2405; J2704; J3010; J7120

== ENCOUNTER → 2024-11-10 06:42 | Outpatient (BNV) | payer MEDICARE, MEDICAID, SELFPAY | PROVIDERS: PCP Internal Medicine; Visit Provider Orthopaedic Surgery | DX: Z47.1 Aftercare following joint replacement surgery (principal); Z96.642 Presence of left artificial hip joint | CPT/HCPCS: 27130; 99024 ==

== ENCOUNTER → 2024-11-10 06:42 | Outpatient (BNV) | payer MEDICARE, MEDICAID, SELFPAY | PROVIDERS: PCP Internal Medicine; Visit Provider Internal Medicine | DX: I42.8 Other cardiomyopathies (principal); I48.0 Paroxysmal atrial fibrillation; Z95.810 Presence of automatic (implantable) cardiac defibrillator | CPT/HCPCS: 99223 ==

== ENCOUNTER → 2024-11-10 09:00 | Outpatient (BNV) | payer MEDICARE, MEDICAID, SELFPAY | PROVIDERS: PCP Internal Medicine; Visit Provider Radiology Diagnostic Radiology | DX: M11.251 Other chondrocalcinosis, right hip (principal); Z96.642 Presence of left artificial hip joint | CPT/HCPCS: 72170 ==

== ENCOUNTER → 2024-11-20 23:59 | Outpatient (BNV) | payer MEDICARE, MEDICAID, SELFPAY ==
--- NOTE | 2024-11-23 13:24 | MHC.OFFVIS ---
Intake Visit Reasons: Remote ICD check- [facility] [place] Allergies No Known Allergies Allergy (Verified 11/10/24 07:10) [facility] Medical History (Updated 11/23/24 @ 13:25 by Vikash Mcknight MD) ICD (implantable cardioverter-defibrillator) in place PAF (paroxysmal atrial fibrillation) Ambulates with cane Wears dentures PAF (paroxysmal atrial fibrillation) BPH (benign prostatic hyperplasia) Osteoarthritis Depression Anxiety COPD (chronic obstructive pulmonary disease) Snores Hx of fracture of patella Heart failure with reduced ejection fraction Mitral regurgitation Nonischemic cardiomyopathy Surgical History (Updated 11/23/24 @ 13:25 by Vikash Mcknight MD) History of implantable cardioverter-defibrillator (ICD) placement (05/04/15) Hx of cardiac cath Hx of knee surgery (~1997) Family History Father Sudden cardiac Mother No problems noted. 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 ICD function is adequate [id number] Cardiac Interrogation, implant defibrillator w/interim Procedure code (CPT) selection complete Assessment & Plan Assessment & Plan (1) ICD (implantable cardioverter-defibrillator) in place: Code(s): Z95.810 - Presence of automatic (implantable) cardiac defibrillator Category: Medical Plan: See above Coding Level of Care Code Procedure Only Diagnoses ICD (implantable cardioverter-defibrillator) in place Z95.810 CPT Codes Cardiac Device Check - Cardiac Device 13: [id number] Cardiac Interrogation, implant defibrillator w/interim ([id number])
== END ==
PROVIDERS: PCP Internal Medicine; Visit Provider Internal Medicine Cardiovascular Disease
DX: Z45.02 Encounter for adjustment and management of automatic implantable cardiac defibrillator (principal)
CPT/HCPCS: 93295

== ENCOUNTER 2024-11-25 14:34 | Outpatient (AMB) | payer MEDICARE, MEDICAID, SELFPAY ==
--- NOTE | 2024-11-25 14:40 | MHC.OFFVIS ---
Intake Visit Reasons: 2WKPO: L ELY w/NE 11/10/24 Intake Note: Roger is a 73 year old male who presents today for his post operative appointment status post left ELY done on 11/10/[address] Vincent. Patient states - . Allergies No Known Allergies Allergy (Verified 11/10/24 07:10) HPI HPI 2WKPO: L ELY w/NE 11/10/24: Details: Mr. Monroy is a 73-year-old male who presents to the office today status post left total hip arthroplasty performed on 11/10/[address] Vincent. Patient is using a cane to assist with ambulation. He was at a short-term rehab after surgery but discharged home. He states that he has been working with physical therapy through the [facility] at home. No additional complaints at this time. [facility] Medical History (Updated 11/23/24 @ 13:25 by Vikash Mcknight MD) ICD (implantable cardioverter-defibrillator) in place PAF (paroxysmal atrial fibrillation) Ambulates with cane Wears dentures PAF (paroxysmal atrial fibrillation) BPH (benign prostatic hyperplasia) Osteoarthritis Depression Anxiety COPD (chronic obstructive pulmonary disease) Snores Hx of fracture of patella Heart failure with reduced ejection fraction Mitral regurgitation Nonischemic cardiomyopathy Surgical History (Updated 11/23/24 @ 13:25 by Vikash Mcknight MD) History of implantable cardioverter-defibrillator (ICD) placement (05/04/15) Hx of cardiac cath Hx of knee surgery (~1997) Family History Father Sudden cardiac Mother No problems noted. 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 Yuly intact. No surrounding erythema or drainage. No signs of infection. NVI. Psych Appearance: grossly normal Mental Status: mental status grossly normal Attitude: cooperative Assessment & Plan Assessment & Plan (1) Status post total hip replacement, left: Code(s): Z96.642 - Presence of left artificial hip joint Category: Surgical Plan Mr. Monroy is a 73-year-old male who presents to the office today status post left total hip arthroplasty performed on 11/10/[address] Vincent. Patient is using a cane to assist with ambulation. He was at a short-term rehab after surgery but discharged home. He states that he has been working with physical therapy through the [facility] at home. No additional complaints at this time. While in the office today, yuly were removed and Steri-Strips were applied. Patient was encouraged to attend outpatient physical therapy once home [facility] services are discontinued. Patient does not feel this is necessary. Patient is on Eliquis 5 mg b.i.d. at baseline. No driving for 6 weeks. Continue posterior precautions. I did reiterate to the patient the importance of physical therapy and strength building after surgery. The therapy order has been placed in the patient's chart should he wish to attend. He will follow up with Dr. Vincent in 4 weeks, sooner if needed. Orders: Orders PT Evaluation and Treatment Today Z96.642 - Presence of left artificial hip joint Coding Level of Care Code Global (95585) Diagnoses Status post total hip replacement, left Z96.642
--- OUTSIDE RECORDS SUMMARY | 2024-11-25 18:16 | XMS_ITS | Clinical Summary ---
Author Organization [facility] Address [address] [place] [address] Care Team Providers Care Milk Route Supervisor Name Role Phone Magda Johnson DMD Primary Care Provider [phone] Source Comments PLEASE NOTE, if this patient [...] Treatment Not on file [place] [facility] [facility] [place] [id number] Care Teams Milk Route Supervisor Relationship Specialty Start Date End Date Magda Johnson DMD [address] [place] [id number] PCP - General 11/26/18
--- OUTSIDE RECORDS SUMMARY | 2025-01-20 20:00 | XMS_ITS | Clinical Summary ---
Author Organization Unknown Care Team Providers Care Public Relations Player Name Role Phone HERIBERTO WHITE, SILVIA Unavailable Unavailable CHRISTY WOODS, SOCRATES Unavailable Unavailable Payers Payer Name Policy Type Policy Number Effective Date Expira tion Date MEDICARE - NGS [place] - PDGM [id number] Problems Condition Name Condition Details Condition Category Status Onset Date Resolution Date Last Treatment Date Treating Clinician Comments AFTERCARE FOLLOWING JOINT REPLACEMENT SURGERY Active 11-12 00:00: 00 PAROXYSMAL ATRIAL FIBRILLATION Active 11-12 00:00: 00 CARDIOMYOPAT HY, UNSPECIFIED Active 11-12 00:00: 00 CHRONIC OBSTRUCTIVE PULMONARY DISEASE, UNSPECIFIED Active 11-12 00:00: 00 DEPRESSION, UNSPECIFIED Active 11-12 00:00: 00 ANXIETY DISORDER, UNSPECIFIED Active 11-12 00:00: 00 BENIGN PROSTATIC HYPERPLASIA WITHOUT LOWER URINRY TRACT SYMP Active 11-12 00:00: 00 PRESENCE OF AUTOMATIC (IMPLANTABLE ) CARDIAC DEFIBRILLATO R Active 11-12 00:00: 00 CHRONIC SYSTOLIC (CONGESTIVE) HEART FAILURE Active 11-12 00:00: 00 Allergies, Adverse Reactions, Alerts Allergy Name Allergy Type Status Severity Reaction(s) Onset Date Inactive Date Treating Clinician Comments NKA Propensity to adverse reactions Active 2024-11 12:19:4 8 Vital Signs Vital Name Observation Time Observation Value Commen ts Temperature 2024-11-23 12:02:00.000 97.9 [degF] BMI (%) 2024-11-23 12:02:00.000 26 kg/m2 Height 2024-11-23 12:02:00.000 78 [in_us] Pulse 2024-11-23 12:02:00.000 78 /min O2 Saturation (%) 2024-11-23 12:02:00.000 90 % Respirations 2024-11-23 12:02:00.000 20 /min Weight (lbs) 2024-11-23 12:02:00.000 229 [lb_av] Systolic Blood Pressure 2024-11-23 12:02:00.000 124 mm [Hg] Diastolic Blood Pressure 2024-11-23 12:02:00.000 80 mm [Hg] Plan of Treatment Planned Activity Planned Date Details Comments Future Scheduled Test SKILLED NU RSE TO EVALUATE PATIENT, IDENTIFY PRIMARY AND CO-MORBID CONDITIONS CODED PER CODING GUIDELINES, AND DEVELOP PATIENT SPECIFIC PLAN OF CARE THAT INCLUDES PATIENT GOAL FOR HOME HEALTH. [code = SKILLED NURSE TO EVALUATE PATIENT, IDENTIFY PRIMARY AND CO-MORBID CONDITIONS CODED PER CODING GUIDELINES, AND DEVELOP PATIENT SPECIFIC PLAN OF CARE THAT INCLUDES PATIENT GOAL FOR HOME HEALTH.] Future Scheduled Test SKILLED NU RSE TO ASSESS ANXIETY AND PROVIDE ASSISTANCE TO PATIENT FOR UNDERSTANDING AND MANAGEMENT OF FEELINGS. [code = SKILLED NURSE TO ASSESS ANXIETY AND PROVIDE ASSISTANCE TO PATIENT FOR UNDERSTANDING AND MANAGEMENT OF FEELINGS.] Future Scheduled Test SKILLED NU RSE FOR O/A, TEACHING, AND MANAGEMENT OF CARDIOMYOPATHY. [code = SKILLED NURSE FOR O/A, TEACHING, AND MANAGEMENT OF CARDIOMYOPATHY.] Future Scheduled Test SKILLED NU RSE FOR O/A, TEACHING AND MANAGEMENT OF BPH FOR EARLY IDENTIFICATION OF EXACERBATION OF DISEASE PROCESS [code = SKILLED NURSE FOR O/A, TEACHING AND MANAGEMENT OF BPH FOR EARLY IDENTIFICATION OF EXACERBATION OF DISEASE PROCESS] Future Scheduled Test OCCUPATION AL THERAPIST TO EVALUATE PATIENT FOR ADL MANAGEMENT POST SURGERY [code = OCCUPATIONAL THERAPIST TO EVALUATE PATIENT FOR ADL MANAGEMENT POST SURGERY] Future Scheduled Test NEED FOR S KILLED TEACHING AND INTERVENTION RELATED TO LEFT TOTAL HIP ARTHTOPLASTY INCISION SITE [code = NEED FOR SKILLED TEACHING AND INTERVENTION RELATED TO LEFT TOTAL HIP ARTHTOPLASTY INCISION SITE] Future Scheduled Test SKILLED NU RSE FOR O/A OF MUSCULOSKELETAL STATUS AND TEACHING ON MEASURES TO MANAGE WBAT TO LLE AND TO MAINTAIN SAFETY WITH ACTIVITY [code = SKILLED NURSE FOR O/A OF MUSCULOSKELETAL STATUS AND TEACHING ON MEASURES TO MANAGE WBAT TO LLE AND TO MAINTAIN SAFETY WITH ACTIVITY] Future Scheduled Test PHYSICAL T HERAPIST TO EVALUATE PATIENT FOR GAIT TRAINING, TRANSFERRING, SAFETY, IMPAIRED MOBILITY [code = PHYSICAL THERAPIST TO EVALUATE PATIENT FOR GAIT TRAINING, TRANSFERRING, SAFETY, IMPAIRED MOBILITY] Future Scheduled Test SKILLED NU RSE TO INSTRUCT PATIENT/CAREGIVER ON SIGNS AND SYMPTOMS, RISK FACTORS, COMPLICATIONS, AND MANAGEMENT OF ATRIAL FIBRILLATION. [code = SKILLED NURSE TO INSTRUCT PATIENT/CAREGIVER ON SIGNS AND SYMPTOMS, RISK FACTORS, COMPLICATIONS, AND MANAGEMENT OF ATRIAL FIBRILLATION.] Future Scheduled Test SKILLED NU RSE TO INSTRUCT PATIENT/CAREGIVER ON COPD TO INCLUDE TEACHING AND SELF-MANAGEMENT RELATED TO COPD DISEASE PROCESS, SIGNS AND SYMPTOMS, AND COMPLICATIONS. [code = SKILLED NURSE TO INSTRUCT PATIENT/CAREGIVER ON COPD TO INCLUDE TEACHING AND SELF-MANAGEMENT RELATED TO COPD DISEASE PROCESS, SIGNS AND SYMPTOMS, AND COMPLICATIONS.] Future Scheduled Test SKILLED NU RSE FOR O/A, TEACHING AND SELF-MANAGEMENT RELATED TO HEART FAILURE. INSTRUCT PATIENT/CAREGIVER ON SIGNS AND SYMPTOMS OF EXACERBATION TO REPORT AND IMPORTANCE OF OBTAINING AND RECORDING DAILY WEIGHT AND/OR MEASUREMENTS. SN OR TRAINED PATIENT/CAREGIVER TO OBTAIN WEIGHT DAILY AND WEIGHT GAIN OF 2 LBS OVERNIGHT OR 5 LBS IN 1 WEEK TO BE REPORTED TO PHYSICIAN/PROVIDER. [code = SKILLED NURSE FOR O/A, TEACHING AND SELF-MANAGEMENT RELATED TO HEART FAILURE. INSTRUCT PATIENT/CAREGIVER ON SIGNS AND SYMPTOMS OF EXACERBATION TO REPORT AND IMPORTANCE OF OBTAINING AND RECORDING DAILY WEIGHT AND/OR MEASUREMENTS. SN OR TRAINED PATIENT/CAREGIVER TO OBTAIN WEIGHT DAILY AND WEIGHT GAIN OF 2 LBS OVERNIGHT OR 5 LBS IN 1 WEEK TO BE REPORTED TO PHYSICIAN/PROVIDER.] Future Scheduled Test SKILLED NU RSE FOR O/A AND SKILLED TEACHING RELATED TO SIGNS AND SYMPTOMS AND MANAGEMENT OF LEFT ELY. [code = SKILLED NURSE FOR O/A AND SKILLED TEACHING RELATED TO SIGNS AND SYMPTOMS AND MANAGEMENT OF LEFT ELY.] Future Scheduled Test VIRTUAL SIT FREQUENCY: 3-4 PRN VIRTUAL VISITS FOR HIGH RISK ASSESSMENTS AND/OR CHANGE IN STATUS MAY BE PERFORMED UTILIZING TELECOMMUNICATIONS SYSTEM TO OPTIMIZE SKILLED SERVICES FURNISHED ON THE PLAN OF CARE. SKILLED NURSE TO ESTABLISH SUPPORT MEASURES TO MINIMIZE RISK OF REHOSPITALIZATION, AND INSTRUCT PATIENT/CAREGIVER ON METHODS TO REDUCE AVOIDABLE HOSPITALIZATION. [code = VIRTUAL VISIT FREQUENCY: 3-4 PRN VIRTUAL VISITS FOR HIGH RISK ASSESSMENTS AND/OR CHANGE IN STATUS MAY BE PERFORMED UTILIZING TELECOMMUNICATIONS SYSTEM TO OPTIMIZE SKILLED SERVICES FURNISHED ON THE PLAN OF CARE. SKILLED NURSE TO ESTABLISH SUPPORT MEASURES TO MINIMIZE RISK OF REHOSPITALIZATION, AND INSTRUCT PATIENT/CAREGIVER ON METHODS TO REDUCE AVOIDABLE HOSPITALIZATION.] Future Scheduled Test PATIENT COUCH S A RISK OF HOSPITALIZATION AND ED USE. SKILLED NURSE TO ESTABLISH SUPPORT MEASURES TO MINIMIZE RISK OF HOSPITALIZATION AND ED USE, AND INSTRUCT PATIENT/CAREGIVER ON METHODS TO REDUCE AVOIDABLE HOSPITALIZATION AND ED USE. [code = PATIENT HAS A RISK OF HOSPITALIZATION AND ED USE. SKILLED NURSE TO ESTABLISH SUPPORT MEASURES TO MINIMIZE RISK OF HOSPITALIZATION AND ED USE, AND INSTRUCT PATIENT/CAREGIVER ON METHODS TO REDUCE AVOIDABLE HOSPITALIZATION AND ED USE.] Future Scheduled Test SKILLED NU RSE TO PROVIDE INSTRUCTION TO PATIENT/CAREGIVER RELATED TO DISCHARGE PLANNING. [code = SKILLED NURSE TO PROVIDE INSTRUCTION TO PATIENT/CAREGIVER RELATED TO DISCHARGE PLANNING.] Future Scheduled Test SKILLED NU RSE TO PERFORM ENVIRONMENTAL SAFETY RISK ASSESSMENT AND FALL RISK ASSESSMENT AND PROVIDE INSTRUCTION TO IMPLEMENT ENVIRONMENTAL SAFETY AND FALL PREVENTION STRATEGIES THROUGHOUT THE CERTIFICATION PERIOD. SKILLED NURSE WILL MAINTAIN SITUATIONAL AWARENESS AND WILL NOTIFY CLINICAL BINDERY MACHINE FEEDER OFFBEARER AND PHYSICIAN/PROVIDER WITH ANY CHANGE IN CONDITION. [code = SKILLED NURSE TO PERFORM ENVIRONMENTAL SAFETY RISK ASSESSMENT AND FALL RISK ASSESSMENT AND PROVIDE INSTRUCTION TO IMPLEMENT ENVIRONMENTAL SAFETY AND FALL PREVENTION STRATEGIES THROUGHOUT THE CERTIFICATION PERIOD. SKILLED NURSE WILL MAINTAIN SITUATIONAL AWARENESS AND WILL NOTIFY CLINICAL BINDERY MACHINE FEEDER OFFBEARER AND PHYSICIAN/PROVIDER WITH ANY CHANGE IN CONDITION.] Future Scheduled Test SKILLED NU RSE FOR OBSERVATION AND ASSESSMENT OF PATIENT S PAIN LEVEL AND EFFECTIVENESS OF PAIN MANAGEMENT REGIMEN. SKILLED NURSE TO INSTRUCT PATIENT/CAREGIVER REGARDING PHARMACOLOGIC AND NON-PHARMACOLOGIC PAIN CONTROL MEASURES. SKILLED NURSE TO REPORT TO PHYSICIAN IF PAIN LEVEL IS OUTSIDE OF ESTABLISHED PARAMETERS. [code = SKILLED NURSE FOR OBSERVATION AND ASSESSMENT OF PATIENT S PAIN LEVEL AND EFFECTIVENESS OF PAIN MANAGEMENT REGIMEN. SKILLED NURSE TO INSTRUCT PATIENT/CAREGIVER REGARDING PHARMACOLOGIC AND NON-PHARMACOLOGIC PAIN CONTROL MEASURES. SKILLED NURSE TO REPORT TO PHYSICIAN IF PAIN LEVEL IS OUTSIDE OF ESTABLISHED PARAMETERS.] Future Scheduled Test SKILLED NU RSE TO ASSESS PATIENT'S SKIN INTEGRITY AND INSTRUCT PATIENT/CAREGIVER ON MEASURES TO PREVENT PRESSURE ULCERS. [code = SKILLED NURSE TO ASSESS PATIENT'S SKIN INTEGRITY AND INSTRUCT PATIENT/CAREGIVER ON MEASURES TO PREVENT PRESSURE ULCERS.] Future Scheduled Test SKILLED NU RSE TO PROVIDE ASSESSMENT AND TEACHING/REINFORCEMENT OF MANAGEMENT OF DEPRESSION INCLUDING DISEASE PROCESS, MEDICATION MANAGEMENT, COPING SKILLS AND IDENTIFY CHANGES ASSOCIATED WITH DEPRESSIVE DISORDERS FOR EARLY INTERVENTION. [code = SKILLED NURSE TO PROVIDE ASSESSMENT AND TEACHING/REINFORCEMENT OF MANAGEMENT OF DEPRESSION INCLUDING DISEASE PROCESS, MEDICATION MANAGEMENT, COPING SKILLS AND IDENTIFY CHANGES ASSOCIATED WITH DEPRESSIVE DISORDERS FOR EARLY INTERVENTION.] Future Scheduled Test SKILLED NU RSE TO REVIEW PATIENT MEDICATIONS (PRESCRIPTION/OTC). INSTRUCT PATIENT/CAREGIVER ON ALL MEDICATIONS INCLUDING PURPOSE, WHEN TO TAKE, IMPORTANCE OF MEDICATION ADHERENCE, MONITORING OF EFFECTIVENESS, ADVERSE DRUG REACTIONS, POSSIBLE SIDE EFFECTS, AND WHEN TO NOTIFY AGENCY OR PHYSICIAN/PROVIDER OF ANY CONCERNS. [code = SKILLED NURSE TO REVIEW PATIENT MEDICATIONS (PRESCRIPTION/OTC). INSTRUCT PATIENT/CAREGIVER ON ALL MEDICATIONS INCLUDING PURPOSE, WHEN TO TAKE, IMPORTANCE OF MEDICATION ADHERENCE, MONITORING OF EFFECTIVENESS, ADVERSE DRUG REACTIONS, POSSIBLE SIDE EFFECTS, AND WHEN TO NOTIFY AGENCY OR PHYSICIAN/PROVIDER OF ANY CONCERNS.] Goal Patient Goal - G ET STRONGER AND BE INDEPENDENT Goal Provider Goal - A PLAN OF CARE WILL BE ESTABLISHED THAT MEETS PATIENT'S NURSING HOME NEEDS AND INCLUDES PATIENT GOAL FOR HOME HEALTH. Goal Provider Goal - SYMPTOMS OF ANXIETY ARE IDENTIFIED AND INTERVENTIONS INITIATED TO ENABLE PATIENT TO UNDERSTAND AND MANAGE FEELINGS THROUGHOUT EPISODE. Goal Provider Goal - PATIENT/CAREGIVER WILL VERBALIZE/DEMONSTRATE MANAGEMENT OF CARDIAC DISEASE PROCESS AND EXACERBATIONS WILL BE IDENTIFIED AND PROMPTLY REPORTED THROUGHOUT THE CERTIFICATION PERIOD. Goal Provider Goal - PATIENT/CAREGIVER WILL VERBALIZE UNDERSTANDING OF GENITOURINARY DISEASE PROCESS, AND EXACERBATIONS OF GENITOURINARY DISEASE WILL BE PROMPTLY IDENTIFIED FOR EARLY INTERVENTION THROUGHOUT THE CERTIFICATION PERIOD. Goal Provider Goal - OCCUPATIONAL THERAPY EVALUATION TO BE COMPLETED WITH RECOMMENDATIONS AND WRITTEN PLAN OF TREATMENT ESTABLISHED FOR THE PHYSICIAN S SIGNATURE. Goal Provider Goal - PATIENT WILL HAVE IMPROVED WOUND STATUS EVIDENCED BY NO SIGNS AND SYMPTOMS OF INFECTION, DECREASED WOUND SIZE, AND/OR NO COMPLICATIONS BY THE END OF THE CERTIFICATION PERIOD. Goal Provider Goal - PATIENT/CAREGIVER WILL VERBALIZE/DEMONSTRATE ABILITY TO MANAGE LEFT ELY WHILE MAINTAINING SAFETY THROUGHOUT THE EPISODE. Goal Provider Goal - A PHYSICAL THERAPY EVALUATION TO BE COMPLETED WITH RECOMMENDATIONS AND/OR WRITTEN PLAN OF TREATMENT ESTABLISHED FOR PHYSICIAN S SIGNATURE. Goal Provider Goal - PATIENT/CAREGIVER WILL VERBALIZE UNDERSTANDING OF SIGNS AND SYMPTOMS, COMPLICATIONS, AND MANAGEMENT OF ATRIAL FIBRILLATION THROUGHOUT THE CERTIFICATION PERIOD. Goal Provider Goal - PATIENT/CAREGIVER WILL VERBALIZE/DEMONSTRATE KNOWLEDGE AND MANAGEMENT OF COPD BY END OF EPISODE. Goal Provider Goal - PATIENT/CAREGIVER WILL VERBALIZE/DEMONSTRATE KNOWLEDGE AND MANAGEMENT OF HEART FAILURE DISEASE PROCESS BY END OF EPISODE. Goal Provider Goal - PATIENT/CAREGIVER WILL VERBALIZE UNDERSTANDING OF LEFT ELY MUSCULOSKELETAL DISEASE INCLUDING SIGNS AND SYMPTOMS, MANAGEMENT, AND PRESCRIBED TREATMENT REGIMEN BY END OF EPISODE. Goal Provider Goal - PATIENT/CAREGIVER WILL UTILIZE VIRTUAL VISITS TO ACHIEVE GOALS OUTLINED ON THE PLAN OF CARE. PATIENT WILL HAVE SUPPORT MEASURES ESTABLISHED TO PREVENT HOSPITALIZATION AND PATIENT/CAREGIVER WILL VERBALIZE/DEMONSTRATE METHODS TO REDUCE AVOIDABLE HOSPITALIZATION THROUGHOUT THE CERTIFICATION PERIOD. Goal Provider Goal - PATIENT WILL HAVE SUPPORT MEASURES ESTABLISHED TO PREVENT HOSPITALIZATION AND ED USE AND PATIENT/CAREGIVER WILL VERBALIZE/DEMONSTRATE METHODS TO REDUCE AVOIDABLE HOSPITALIZATION AND ED USE BY END OF EPISODE. Goal Provider Goal - PATIENT/CAREGIVER WILL VERBALIZE UNDERSTANDING OF DISCHARGE PLANNING INSTRUCTIONS BY DATE OF DISCHARGE. Goal Provider Goal - PATIENT/CAREGIVER WILL VERBALIZE/DEMONSTRATE EFFECTIVE ENVIRONMENTAL SAFETY AND FALL PREVENTION STRATEGIES, WILL REMAIN SAFE IN THE COMMUNITY, AND WILL BE FREE OF DANGER TO SELF AND OTHERS THROUGHOUT THE CERTIFICATION PERIOD. Goal Provider Goal - PATIENT/CAREGIVER WILL DEMONSTRATE UNDERSTANDING OF PHARMACOLOGIC AND NONPHARMACOLOGIC PAIN CONTROL MEASURES AND PATIENT WILL HAVE IMPROVEMENT IN PAIN INTERFERING WITH ACTIVITY EVIDENCED BY PAIN AT A LEVEL THAT IS ACCEPTABLE TO THE PATIENT AND PAIN LEVEL WITHIN ESTABLISHED PARAMETERS BY END OF CERTIFICATION PERIOD. Goal Provider Goal - PATIENT/CAREGIVER WILL VERBALIZE UNDERSTANDING OF PRESSURE ULCER PREVENTION BY END OF THE EPISODE. Goal Provider Goal - PATIENT/CAREGIVER WILL VERBALIZE/DEMONSTRATE UNDERSTANDING OF THE MANAGEMENT OF DEPRESSION THROUGHOUT THE CERTIFICATION PERIOD AND SYMPTOMS ARE IDENTIFIED AND MANAGED TO MAINTAIN PATIENT SAFETY IN THE HOME. Goal Provider Goal - PATIENT/CAREGIVER WILL VERBALIZE UNDERSTANDING OF EDUCATION PROVIDED ON MEDICATIONS BY THE END OF THE CERTIFICATION PERIOD. Progress Notes Progress Notes <paragraph>[Visit Date: 2024 by RUPA BRADSHAW RN]:</paragraph><paragraph>SOC 11/23</paragraph><paragraph></paragraph><paragraph>THE PATIENT IS RECEIVING HOMECARE DUE TO: AFTERCARE OF LEFT TOTAL HIP ARTHROPLASTY </paragraph><paragraph></paragraph><paragraph>RECENT HOSPITALIZATION/INPATIENT ADMISSION RELATED TO: 11/10 PATIENT HAD LEFT ELY. ADMITTED TO [facility] 11/12-11/19 FOR REHAB. </paragraph><paragraph></paragraph><paragraph>NEW OR CHANGED MEDICATIONS: STARTED ON PERCOCET 7.5 MG - 325 MG (1 TABLET 5X/DAY NEEDED FOR PAIN)</paragraph><paragraph></paragraph><paragraph>PATIENT LIVING SITUATION/CAREGIVER STATUS: PATIENT LIVES IN SINGLE STORY APARTMENT. STATES HIS NEIGHBORS CHECK ON HIM DAILY. DAUGHTER IS HCP. </paragraph><paragraph></paragraph><paragraph>RECENT FALLS: DENIES ANY FALLS </paragraph><paragraph></paragraph><paragraph>SUMMARIZE SKILLED NEED: AFTERCARE OF LEFT ELY</paragraph><paragraph></paragraph><paragraph>ADDITIONAL DISCIPLINES NEEDED OR DECLINED ORDERED SERVICES: PT/OT</paragraph><paragraph></paragraph><paragraph> COMMUNICATION: UPDATED ON POC. VO RECIEVED FROM CHUCK ARMSTRONG AT MD OFFICE FOR SN/PT/OT. </paragraph><paragraph></paragraph><paragraph>UPCOMING APPOINTMENTS:ORTHO F/U 9/11, PCP F/U 12/10</paragraph><paragraph></paragraph><paragraph>PAYOR SOURCE: MEDICARE</paragraph><paragraph></paragraph><paragraph>ABNORMAL VITALS: ALL VS WITHIN SET PARAMETERS </paragraph><paragraph></paragraph><paragraph>ABNORMAL PHYSICAL ASSESSMENT FINDINGS: NO ABNORMAL FINDINGS </paragraph><paragraph></paragraph><paragraph>OBSERVATION AND ASSESSMENT PROVIDED: PATIENT IS A 73 Y/O MALE WHO WAS HOSPITALIZED FOR A LEFT ELY AND DISCHARGED TO [facility] FROM 11/12-11/19 FOR REHABILITATION. PMH: AFIB ON ELIQUIS, CARDIOMYOPTAHY, COPD, OSTEOARTHRITIS, DEPRESSION, ANXIETY, HFREF, BPH, DEFIBRILLATOR PRESENT. PATIENT IS A&OX4, NO COMPLAINTS OF PAIN DURING VISIT. STATES HE HAS BEEN TAKING PERCOCET NEEDED, USUALLY IN THE MORNING AND AT NIGHT AND PATIENT STATES THAT PROVIDES RELIEF. LUNG SOUNDS DIM IN THE BASES, DENIES CP/PALPITATIONS/NUMBNESS/TINGLING. SOB WITH MODERATE EXERTION INCLUDING WITH BENDING, DRESSING AND WALKING < 20 FEET. PATIENT USES NEBULIZER DAILY. 1+ EDEMA NOTED TO LLE. DENIES URINARY SYMPTOMS. LBM 11/23, DENIES N/V/D. GOOD APPETITE. SURGICAL DRESSING INTACT TO LET HIP, SHADOWING NOTED, PER DISCHARGE ORDERS, PATIENT TO FOLLOW UP WITH ORTHO ON 11/25 AND WILL REMOVE DRESSING AND KULWINDER. NO SIGNS OR SYMPTOMS OF INFECTION TO SURGICAL SITE. PATIENT USES A WALKER MOSTLY SINCE DISCHARGE, USED A CANE PRIOR TO PROCEDURE. PATIENT INDEPENDENTLY HANDLES MEDICATIONS. PATIENT HAS GRAB BARS AND STATES HE IS ABLE TO SHOWER INDEPENDENTLY. POC IS TO START SNV 1X/WEEK FOR POST OP MANAGEMENT/EDUCATION, COPD/CHF MANAGEMENT AND EDUCATION, PAIN MANAGEMENT. PT EVAL PLACED FOR GAIT/STABILITY, IMPAIRED MOBILITY DUE TO LEFT ELY, SAFETY EVALUATION/DME EDUCATION/CORRECT USE OF DME. OT EVAL PLACED FOR ADL MANAGEMENT AND SAFETY EVALUATION. </paragraph><paragraph></paragraph><paragraph>EDUCATION: PATIENT EDUCATED ON S/S OF INFECTION TO SURGICAL SITE INCLUDING INCREASED DRAINAGE, REDNESS, SWELLING, ERYTHEMA, FEVER OR INCREASED PAIN AND TO REPORT ANY ABNORMAL FINDINGS TO MD. EDUCATED ON ICE THERAPY TO HELP IMPROVE PAIN. EDUCATED ON WBAT TO LLE AND IMPORTANCE OF USING WALKER UNTIL PATIENT IS BACK TO HIS BASELINE TO PREVENT FALLS. EDUCATED ON LOW SALT DIET. EDUCATED ON S/S OF COPD EXACERBATION INCLUDING INCREASED SOB, WHEEZING, CHANGES TO SPUTUM. EDUCATED ON S/S OF CHF EXACERBATION INCLUDING INCREASED SOB, SWELLING, FATIGUE OR CP. </paragraph><paragraph></paragraph><paragraph>INTERVENTIONS NEEDED AT NEXT VISIT: PAIN ASSESSMENT/EDUCATION, RESPIRATORY ASSESSMENT, SURGICAL INCISION ASSESSMENT, SAFETY EVALUATION AND EDUCATION </paragraph><paragraph></paragraph><paragraph>ANTICIPATED DISCHARGE PLAN: DC TO SELF UNDER CARE OF MD ONCE GOALS HAVE BEEN MET. </paragraph><paragraph></paragraph><paragraph>PT INSTRUCTED TO CALL [facility] WITH ANY QUESTIONS OR CONCERNS AND/OR CHANGES IN CONDITION, STATE UNDERSTANDING</paragraph> Encounters Start Date/Time End Date/Time Encounter Type Admission Type Attending Clinicians Care Facility Care Department Encounter ID Discharge Date Discharge Status Discharge Condition Discharge Reason Percent Goals Met 2024-11-23 00:00:00 2025-01-21 00:00:00 Outpatient NEW ADMISSION [facility] [id number] 60.00
== END 2024-11-25 15:12 | disposition home or self-care (01) ==
LOC: HO.HOS 14:34
PROVIDERS: Visit Provider Physician Assistant
DX: Z96.642 Presence of left artificial hip joint (principal)
CPT/HCPCS: 99024

== ENCOUNTER → 2024-11-25 14:34 | Outpatient (BNVA) | payer MEDICARE, MEDICAID, SELFPAY | PROVIDERS: Visit Provider Physician Assistant | DX: Z48.02 Encounter for removal of sutures (principal); Z96.642 Presence of left artificial hip joint; Z98.890 Other specified postprocedural states | CPT/HCPCS: 99212 ==

== ENCOUNTER 2024-12-23 14:42 | Outpatient (AMB) | payer MEDICARE, MEDICAID, SELFPAY ==
--- NOTE | 2024-12-23 14:44 | MHC.OFFVIS ---
Intake Visit Reasons: 2ND PO: L ELY w/NE 11/10/24 Intake Note: Roger is a 74 year old male who presents today for a post operative follow up about 5 weeks s/p Left ELY. He has not yet started outpatient PT - He is still working with [facility]. Allergies No Known Allergies Allergy (Verified 11/10/24 07:10) HPI HPI 2ND PO: L ELY w/NE 11/10/24: Details: Roger is a 74 year old male who presents today for a post operative follow up about 5 weeks s/p Left ELY. He has not yet started outpatient PT. He continues to work with [facility] for PT [facility] Medical History (Updated 11/23/24 @ 13:25 by Vikash Mcknight MD) ICD (implantable cardioverter-defibrillator) in place PAF (paroxysmal atrial fibrillation) Ambulates with cane Wears dentures PAF (paroxysmal atrial fibrillation) BPH (benign prostatic hyperplasia) Osteoarthritis Depression Anxiety COPD (chronic obstructive pulmonary disease) Snores Hx of fracture of patella Heart failure with reduced ejection fraction Mitral regurgitation Nonischemic cardiomyopathy Surgical History (Updated 11/23/24 @ 13:25 by Vikash Mcknight MD) History of implantable cardioverter-defibrillator (ICD) placement (05/04/15) Hx of cardiac cath Hx of knee surgery (~1997) Family History Father Sudden cardiac Mother No problems noted. 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 May discontinue any new medications prescribed after surgery me. Continue strengthening and range of motion. Follow up 6 weeks. Coding Level of Care Code Global (46217) Diagnoses Status post total hip replacement, left Z96.642
== END 2024-12-23 15:01 | disposition home or self-care (01) ==
LOC: HO.HOS 14:43
PROVIDERS: PCP Internal Medicine; Visit Provider Orthopaedic Surgery
DX: Z96.642 Presence of left artificial hip joint (principal)
CPT/HCPCS: 99024

== ENCOUNTER → 2024-12-23 14:42 | Outpatient (BNVA) | payer MEDICARE, MEDICAID, SELFPAY | PROVIDERS: PCP Internal Medicine; Visit Provider Orthopaedic Surgery | DX: Z47.1 Aftercare following joint replacement surgery (principal); Z96.642 Presence of left artificial hip joint | CPT/HCPCS: 99212 ==

== ENCOUNTER 2025-02-14 14:47 | Outpatient (AMB) | payer MEDICARE, SELFPAY ==
[2025-02-14 14:53] VITALS: BP 108/52; PULSE 66; BMI 27.4
--- NOTE | 2025-02-14 14:53 | MHC.OFFVIS ---
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 Instructions: hold for soft BP Entresto 97-103 mg (sacubitril-valsartan) 1 tab PO BID NS Held on 11/12/24. Instructions: hold for low bp, gradually re-introduce as bp improves finasteride 5 mg PO DAILY furosemide 40 mg PO BID Held on 11/12/24. Instructions: pt states he takes 40 mg in am and 20 mg in pm; hold for low bp. resumes as soon as bp allows hydroxyzine HCl 25 mg PO BID PRN ipratropium-albuterol 0.5 mg-3 mg(2.5 mg base)/3 mL 3 mL inhalation Q4H PRN ivabradine (Corlanor) 2.5 mg (1/2 x 5 mg) PO BID mirtazapine 7.5 mg PO BEDTIME PRN oxycodone 10 mg PO Q4H PRN 7 days sertraline 25 mg PO DAILY tamsulosin 0.4 mg PO .DAILY@1300 walker Folding front wheeled walker HPI HPI 6m follow up: Details: The patient is a 74 year old individual presenting for follow-up of non-ischemic cardiomyopathy and heart failure with reduced EF. The patient also has a history of paroxysmal atrial fibrillation and a single chamber ICD. The patient reports feeling excellent from a cardiac perspective and denies any chest pain, palpitations, dyspnea, dizziness, or leg swelling. The patient underwent a total hip replacement on November 10 due to advanced osteoarthritis and reports doing very well post-operatively, with current activity limited to walking. The patient reports a history of poor appetite and constipation while hospitalized but states diet and bowel movements have returned to normal since being home. Post-operative labs from 11/12/2024 showed a hematocrit of 26.1 and creatinine of 1.68. The patient is adherent to medications, which include carvedilol, Entresto, Lasix, Corlanor, and Eliquis, and denies any bleeding issues. [facility] Medical History (Updated 02/14/25 @ 16:43 by Patti Glez NP-C) PAF (paroxysmal atrial fibrillation) Nonischemic cardiomyopathy ICD (implantable cardioverter-defibrillator) in place Ambulates with cane Wears dentures PAF (paroxysmal atrial fibrillation) BPH (benign prostatic hyperplasia) Osteoarthritis Depression Anxiety COPD (chronic obstructive pulmonary disease) Snores Hx of fracture of patella Heart failure with reduced ejection fraction Mitral regurgitation Surgical History History of implantable cardioverter-defibrillator (ICD) placement (05/04/15) Hx of cardiac cath Hx of knee surgery (~1997) Family History Father Sudden cardiac Mother No problems noted. 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 Review of Systems Const All systems reviewed & are unremarkable except as noted in HPI and below ENT Denies dizziness Card Denies chest pain, Denies chest pain at rest, Denies chest pain with activity, Denies rapid heart rate, Denies pedal edema, Denies edema, Denies leg edema, Denies lightheadedness, Denies palpitations, Denies dyspnea, Denies dyspnea on exertion and Denies orthopnea Resp Denies cough, Denies dyspnea and Denies dyspnea on exertion GI Denies hematochezia and Denies change in stool character Musc Denies abnormal gait, Denies limited range of motion, Denies muscle cramps, Denies muscle weakness, Denies numbness, Denies radiating pain into limb, Denies stiffness and Denies tingling Neuro Denies abnormal gait, Denies dizziness, Denies numbness and Denies tingling Endo Denies palpitations Physical Exam Vital Signs: Last Vital Signs Pulse 66 02/14/25 14:53 BP 108/52 L 02/14/25 14:53 BMI result Body Mass Index 27.4 Const General: cooperative, healthy appearing, comfortable and no acute distress Orientation/consciousness: patient oriented x3 Neck Neck: Yes normal visual inspection Resp Effort & Inspection: normal respiratory effort Auscultation: clear to auscultation bilaterally, no crackles, no rales, no rhonchi and no wheezes Cardio Rate: regular rate Rhythm: regular rhythm Heart sounds: S1 normal heart sound present, S2 normal heart sound present, no gallops, no murmurs and no rubs Peripheral pulses: Peripheral pulses 2+ throughout Neuro General: patient oriented x3 Extrem General: Yes normal to inspection, No no pedal edema and No calf tenderness Psych Appearance: grossly normal Mental Status: mental status grossly normal Speech and movement: Normal speech and movement present Office Procedures Cardiac Device Check Cardiac Device Check Details: A [place] single-chamber ICD interrogation today, VVI mode, low rate 40, V paced 2.9% of time, no alerts, ventricular threshold 0.5 volts at 0.5 milliseconds [id number] Cardiac Device Check, single lead implantable defibrillator Procedure code (CPT) selection complete Assessment & Plan Assessment & Plan (1) Nonischemic cardiomyopathy: Code(s): I42.8 - Other cardiomyopathies Category: Medical Plan: History of nonischemic cardiomyopathy with last echocardiogram 07/26/2024 showing EF 55-60%, impaired relaxation, mild biatrial enlargement, trace aortic and mild mitral regurgitation, ascending aorta 4 cm. No clinical signs of heart failure on examination. Continue carvedilol and Entresto for neurohormonal modulation. Continue Lasix. ICD in place for primary prevention. Cardiology follow-up 6 months, sooner if needed (2) Heart failure with improved ejection fraction (HFimpEF): Code(s): I50.32 - Chronic diastolic (congestive) heart failure Category: Medical Plan: As above. Signs and symptoms of heart failure reviewed with him. (3) PAF (paroxysmal atrial fibrillation): Comment: high suspicion on remote ICD monitoring Code(s): I48.0 - Paroxysmal atrial fibrillation Category: Medical Plan: History of paroxysmal atrial fibrillation being treated with rhythm control. He is on carvedilol and Corlanor to help with heart rate control. Recent device interrogation is showing no alerts. He is denying any heart palpitations and pulse is regular on examination. He is on Eliquis for anticoagulation. Most recent labs at the time of postop hip replacement showed hematocrit low at 26.1. Recommend recheck of labs, patient informed. (4) ICD (implantable cardioverter-defibrillator) in place: Code(s): Z95.810 - Presence of automatic (implantable) cardiac defibrillator Category: Medical Plan: [place] single-chamber ICD in place. Interrogation today shows it is functioning normally. Remote monitoring in use. Next office interrogation due in 6 months (5) Mitral regurgitation: Code(s): I34.0 - Nonrheumatic mitral (valve) insufficiency Category: Medical Plan: Mild mitral regurgitation noted on last echo. Plan I discussed with the patient that the cardiac conditions appear stable and asymptomatic, and no medication changes are warranted at this time. I reviewed the ICD interrogation results, noting the device is functioning normally and has about two years of battery life remaining. I explained that a generator change procedure would be required in approximately two years to replace the device. We discussed the low blood counts and elevated kidney function test from the time of the recent hip surgery, and I recommended repeat lab work in the next 1-2 weeks to ensure they have resolved. I advised a follow-up appointment in six months. Patient Instructions: - Continue to take all your medications as prescribed, including Carvedilol, Entresto, Lasix, Corlanor, and Eliquis. - Your defibrillator (ICD) is working well. The battery has about two more years of life, and at that time, you will need a small procedure to replace the device. - Please go to the lab in the next one to two weeks to have your blood drawn. We need to recheck your blood counts and kidney function. - You do not need to fast (stop eating) before the blood test. - We will see you back in the office in six months for a follow-up visit. - Call us if you develop any new chest pain, trouble breathing, dizziness, or leg swelling. Patient was informed and verbally consented to the use of an ambient scribe for clinic note documentation during this visit. Visit time spent on chart review, interview, assessment, orders, documentation. Coding Level of Care Code Est Pt Level 4 (03927) Complex visit Add On G2211 Diagnoses Nonischemic cardiomyopathy I42.8 Heart failure with improved ejection fraction (HFimpEF) I50.32 PAF (paroxysmal atrial fibrillation) I48.0 ICD (implantable cardioverter-defibrillator) in place Z95.810 Mitral regurgitation I34.0 CPT Codes Cardiac Device Check - Cardiac Device 4: 53925-[id number] Cardiac Device Check, single lead implantable defibrillator ([id number]) Time Spent (min) 30
--- OUTSIDE RECORDS SUMMARY | 2025-02-14 18:04 | XMS_ITS | Encounter Summary ---
Author Organization [facility] Address [address] [place] [address] Care Team Providers Care Aerial Erector Name Role Phone Donaldo Fenton MD Primary Care Provider [phone] Reason for Visit * Reason Comments home health cert Encounter Details Date Type Department Care Team ([facility] st Contact Info) Description 01/07/2025 Billing Patient Not Present Adult Medicine [address] [phone] Donaldo Fenton MD [address] [place], [place] Social History Tobacco Use Types Packs/Day Years Used Date Smoking Tobacco: Former Cigarettes 0.5 55 1 04/17/1959 - 03/02/2015 Smokeless Tobacco: Former Quit: 12/31/2014 Alcohol Use Standard Drinks/Week Comments No 0 (1 standard drink = 0.6 oz pur e alcohol) Housing Instability Answer Date Recorde d Are you worried that in the next 2 months you may not have stable housing? No 09/09/2024 Food Access & Nutrition Answer Date Rec orded Do you have access to a vari ety of food including fruits and vegetables? Yes 09/09/2024 Access to Healthcare Answer Date Record ed Within the last 3 months, ho w many times did you visit the emergency department for your medical care? 0 09/09/2024 Health Literacy Answer Date Recorded How often do you need to hav e someone help you when you read instructions, pamphlets, or other written material from your doctor or pharmacy? Never 10/04/2024 Caregiver: How often do you need to have someone help you when you read instructions, pamphlets, or other written material from your doctor or pharmacy? Not on file 10/04/2024 Financial Risk Answer Date Recorded How hard is it for you to pa y for the very basics like food, housing, medical care, and air conditioning / heating? Not very hard 09/09/2024 Transportation Answer Date Recorded Has the lack of transportati on kept you from meetings, work, or from getting things needed for daily living? No Has the lack of transportati on kept you from medical appointments or from getting medications? Yes 09/09/2024 Social Isolation Answer Date Recorded How often do you feel lonely or isolated from th ose around you? Never 10/04/2024 Food Risk Answer Date Recorded Within the past 12 months we worried whether our food would run out before we got money to buy more. Never true 09/09/2024 Within the past 12 months th e food we bought just didn't last and we didn't have money to get more. Never true 09/09/2024 Dependent Care Answer Date Recorded Do you need help finding or paying for care for your loved ones. For example, early childhood education coordinator or elderly care for an older adult? No 10/04/2024 Education Answer Date Recorded Do you think completing more education or training, like finishing a GED, going to college, or learning a trade, would be helpful for you? No 10/04/2024 Employment and Income Answer Date Recor ded During the last four weeks, have you been actively looking for work? No 10/04/2024 Living Situation Answer Date Recorded What is your living situation? Unrecognized valu e 09/09/2024 Sex and Gender Information Value Date Recorded Sex Assigned at Not on file Legal Sex Male 6:50 AM EST Gender Identity Not on file Sexual Orientation Not on file documented as of this encounter Plan of Treatment Upcoming Encounters Date Type Department Care Team (Late st Contact Info) Description 08/05/2025 3:00 PM EDT Office Visit Adult Medicine [address] [phone] Donaldo Fenton MD [address] [place] [address] documented as of this encounter Visit Diagnoses Not on filedocumented in this encounter Additional Health Concerns Assessment Noted Time PHQ-9 Depression Total Score: 0 03/25/19 3:29 PM EST A fall risk assessment has been complete d for the patient 03/25/2024 3:29 PM EST documented as of this encounter Care Teams Aerial Erector Relationship Specialty Start Date End Date Donaldo Fenton MD [address] [place] [address] [phone] PCP - General Internal Medicine 11/18/24 documented as of this encounter
--- OUTSIDE RECORDS SUMMARY | 2025-02-14 18:04 | XMS_ITS | Encounter Summary ---
Author Organization [facility] Address [address] [place] [address] Care Team Providers Care Operations And Maintenance Technician Name Role Phone Donaldo Fenton MD Primary Care Provider [phone] Encounter Details Date Type Department Care Team (Late st Contact Info) Description 09/09/2024 Referral Triage [facility] Worker [address] [address] Karl Hopper Social History Tobacco Use Types Packs/Day Years [...] department for your medical care? 0 09/09/2024 Financial Risk Answer Date Recorded How hard [...] appointments or from getting medications? Yes 09/09/2024 Food Risk Answer Date Recorded Within the past 12 months we worried whether our food would run out before we got money to buy more. Never true 09/09/2024 Within the past 12 months th e food we bought just didn't last and we didn't have money to get more. Never true 09/09/2024 Living Situation Answer Date Recorded What is your living situation? Unrecognized valu e 09/09/2024 Sex and Gender Information Value Date Recorded Sex Assigned at Not on file Legal Sex Male 6:50 AM EST Gender Identity Not on file Sexual Orientation Not on file documented as of this encounter Progress Notes * Karl Hopper - 09/09/2024 1:33 PM EDT Referral triage: Assigned to Nanda (W) Reason for referral: transportation resources Karl Hopper Community Health Worker (CHW) Brewery Representative/Regional documented in this encounter Plan of Treatment Upcoming Encounters Date Type Department Care Team (Late st Contact Info) Description 08/05/2025 3:00 PM EDT Office Visit Adult Medicine [address] [phone] Donaldo Fenton MD [address] [place] [address] documented as of this encounter Visit Diagnoses Not on filedocumented in this encounter Additional Health Concerns Assessment Noted Time PHQ-9 Depression Total Score: 0 03/25/19 3:29 PM EST A fall risk assessment has been complete d for the patient 03/25/2024 3:29 PM EST documented as of this encounter Care Teams Operations And Maintenance Technician Relationship Specialty Start Date End Date Donaldo Fenton MD [address] [place] [address] PCP - General Internal Medicine 11/18/24 documented as of this encounter
--- OUTSIDE RECORDS SUMMARY | 2025-02-14 18:04 | XMS_ITS | Encounter Summary ---
Author Organization [facility] Address [address] [place] [address] Care Team Providers Care Maker Up Folding Name Role Phone Donaldo Fenton MD Primary Care Provider [phone] Encounter Details Date Type Department Care Team (Late st Contact Info) Description 11/14/2024 Lab Requisition [facility] - Main Lab [address] [facility] [place] [address] Melina Parrish PA [address] [place] [address] Encounter for other general examination Social History Tobacco Use Types Packs/Day Years [...] ed Within the last 3 months, ho jaime many times did you visit the emergency [...] care for your loved ones. For example, child nutrition manager or elderly care for an older adult? [...] 3:00 PM EDT Office Visit Adult Medicine [address] [phone] Donaldo Fenton MD [address] [place] [address] documented as of this encounter Procedures Procedure Name Priority Date/Time Associated Diagnosis Comments COMPLETE BLOOD COUNT Routine 11/14/2024 6:31 AM EDT Encounter for other general examination documented in this encounter Results * (ABNORMAL) Complete blood count (11/14/2024 6:31 AM EDT) WBC 8.9 4.8 - 10.8 K/mcL LAB HEMETOLOGY METHOD 11/14/2024 10:07 AM [facility] RBC 2.70(L) 4.50 - 5.50 M/mcL LAB HEMETOLOGY METHOD 11/14/2024 10:07 AM [facility] Hemoglobin 7.7(L) 13.5 - 17.5 g/dL LAB HEMETOLOGY METHOD 11/14/2024 10:07 AM [facility] Hematocrit 24.2(L) 42.0 - 54.0 % LAB HEMETOLOGY METHOD 11/14/2024 10:07 AM [facility] MCV 89.0 79.0 - 98.0 FL LAB HEMETOLOGY METHOD 11/14/2024 10:07 AM [facility] MCH 28.3 27.0 - 32.0 pcg LAB HEMETOLOGY METHOD 11/14/2024 10:07 AM [facility] MCHC 31.8(L) 32.0 - 37.0 g/dL LAB HEMETOLOGY METHOD 11/14/2024 10:07 AM [facility] RDW 13.8 11.0 - 15.0 % LAB HEMETOLOGY METHOD 11/14/2024 10:07 AM [facility] Platelets 214 130 - 400 K/mcL LAB HEMETOLOGY METHOD 11/14/2024 10:07 AM [facility] MPV 11.3(H) 7.0 - 11.0 FL LAB HEMETOLOGY METHOD 11/14/2024 10:07 AM EDT [facility] NRBC 0.0 <1.0 % LAB HEMETOLOGY METHOD 11/14/2024 10:07 AM EDT [facility] NRBC Absolute 0.00 <0.10 K/mcL LAB HEMETOLOGY METHOD 11/14/2024 10:07 AM EDT [facility] Blood Venous blood specimen / Unknown Venipuncture / Unknown 11/14/2024 6:31 AM EDT 11/14/2024 9:31 AM EDT us Melina FLORES LAB BLOOD ORDERABLES Final Resul t [facility] [address] [place] [address], documented in this encounter Visit Diagnoses Diagnosis Encounter for other general examination documented in this encounter Additional Health Concerns Assessment Noted Time PHQ-9 Depression Total Score: 0 03/25/19 3:29 PM EST A fall risk assessment has been complete d for the patient 03/25/2024 3:29 PM EST documented as of this encounter Care Teams Maker Up Folding Relationship Specialty Start Date End Date Donaldo Fenton MD [address] [place] [phone] PCP - General Internal Medicine 11/18/24 documented as of this encounter
--- OUTSIDE RECORDS SUMMARY | 2025-02-14 18:04 | XMS_ITS | Encounter Summary ---
Author Organization [facility] Address [address] [place] [address] Care Team Providers Care Cubing Machine Tender Name Role Phone Donaldo Fenton MD Primary Care Provider [phone] Encounter Details Date Type Department Care Team (Late st Contact Info) Description 11/15/2024 Lab Requisition [facility] - Main Lab [address] [facility] [place] [address] Melina Parrish PA [address] [place] [address] Encounter for other general examination Social History [...] for your loved ones. For example, child development director or elderly care for an older adult? [...] 3:00 PM EDT Office Visit Adult Medicine [address] [phone] Donaldo Fenton MD [address] [place] [address] documented as of this encounter Procedures Procedure Name Priority Date/Time Associated Diagnosis Comments BASIC METABOLIC PANEL Routine 11/15/2024 5:59 AM EDT Encounter for other general examination documented in this encounter Results * (ABNORMAL) Basic metabolic panel (11/15/2024 5:59 AM EDT) Sodium 137 133 - 145 mmol/L LAB CHEMISTRY METHOD 11/15/2024 9:56 AM [facility] Potassium 4.3 3.5 - 5.5 mmol/L LAB CHEMISTRY METHOD 11/15/2024 9:56 AM [facility] Chloride 105 96 - 110 mmol/L LAB CHEMISTRY METHOD 11/15/2024 9:56 AM [facility] CO2 29 21 - 32 mmol/L LAB CHEMISTRY METHOD 11/15/2024 9:56 AM [facility] Anion Gap 3 3 - 11 LAB CHEMISTRY METHOD 11/15/2024 9:56 AM [facility] Glucose 77 70 - 100 mg/dL LAB CHEMISTRY METHOD 11/15/2024 9:56 AM [facility] BUN 21 5 - 25 mg/dL LAB CHEMISTRY METHOD 11/15/2024 9:56 AM [facility] Creatinine 1.11 0.70 - 1.30 mg/dL LAB CHEMISTRY METHOD 11/15/2024 9:56 AM [facility] eGFR 71 >=60 mL/min/1. 73m2 LAB CHEMISTRY METHOD 11/15/2024 9:56 AM [facility] Comment:Calculation based on the Chronic Kidney Disease Epidemiology Collaboration (CKD-EPI) equation refit without adjustment for race. BUN/Creatinine Ratio 18.9 LAB CHEMISTRY METHOD 11/15/2024 9:56 AM [facility] Calcium 8.2(L) 8.5 - 10.5 mg/dL LAB CHEMISTRY METHOD 11/15/2024 9:56 AM [facility] Blood Venous blood specimen / Unknown Venipuncture / Unknown 11/15/2024 5:59 AM EDT 11/15/2024 8:52 AM EDT us Melina FLORES LAB BLOOD ORDERABLES Final Resul t [facility] [address] [place] [address], documented in this encounter Visit Diagnoses Diagnosis Encounter for other general examination documented in this encounter Additional Health Concerns Assessment Noted Time PHQ-9 Depression Total Score: 0 03/25/19 3:29 PM EST A fall risk assessment has been complete d for the patient 03/25/2024 3:29 PM EST documented as of this encounter Care Teams Cubing Machine Tender Relationship Specialty Start Date End Date Donaldo Fenton MD [address] [place] [phone] PCP - General Internal Medicine 11/18/24 documented as of this encounter
--- OUTSIDE RECORDS SUMMARY | 2025-02-14 18:04 | XMS_ITS | Encounter Summary ---
Author Organization [facility] Address [address] [place] [address] Care Team Providers Care Wildlife Biology Technician Name Role Phone Donaldo Fenton MD Primary Care Provider [phone] Encounter Details Date Type Department Care Team (Late st Contact Info) Description 11/17/[address] [facility] - Main Lab [address] [facility] [place] [address] Melanie Cortez PA [address] [place] [id number] Encounter for other general examination Social History [...] for your loved ones. For example, child care cook or elderly care for an older adult? [...] 3:00 PM EDT Office Visit Adult Medicine [address] [phone] Donaldo Fenton MD [address] [place] [address] documented as of this encounter Procedures Procedure Name Priority Date/Time Associated Diagnosis Comments COMPLETE BLOOD COUNT Routine 11/17/2024 6:35 AM EDT Encounter for other general examination COMPREHENSIVE METABOLIC PANEL Routine 11/17/2024 6:35 AM EDT Encounter for other general examination documented in this encounter Results * (ABNORMAL) Comprehensive metabolic panel (11/17/2024 6:35 AM EDT) Sodium 138 133 - 145 mmol/L LAB CHEMISTRY METHOD 11/17/2024 12:07 PM [facility] Potassium 4.2 3.5 - 5.5 mmol/L LAB CHEMISTRY METHOD 11/17/2024 12:07 PM [facility] Chloride 102 96 - 110 mmol/L LAB CHEMISTRY METHOD 11/17/2024 12:07 PM [facility] CO2 29 21 - 32 mmol/L LAB CHEMISTRY METHOD 11/17/2024 12:07 PM [facility] Anion Gap 7 3 - 11 LAB CHEMISTRY METHOD 11/17/2024 12:07 PM [facility] Glucose 72 70 - 100 mg/dL LAB CHEMISTRY METHOD 11/17/2024 12:07 PM [facility] BUN 20 5 - 25 mg/dL LAB CHEMISTRY METHOD 11/17/2024 12:07 PM [facility] Creatinine 1.21 0.70 - 1.30 mg/dL LAB CHEMISTRY METHOD 11/17/2024 12:07 PM [facility] eGFR 64 >=60 mL/min/1. 73m2 LAB CHEMISTRY METHOD 11/17/2024 12:07 PM [facility] Comment:Calculation based on the Chronic Kidney Disease Epidemiology Collaboration (CKD-EPI) equation refit without adjustment for race. BUN/Creatinine Ratio 16.5 LAB CHEMISTRY METHOD 11/17/2024 12:07 PM [facility] Calcium 8.1(L) 8.5 - 10.5 mg/dL LAB CHEMISTRY METHOD 11/17/2024 12:07 PM [facility] AST (SGOT) 25 10 - 42 unit/L LAB CHEMISTRY METHOD 11/17/2024 12:07 PM [facility] ALT (SGPT) 16 10 - 60 unit/L LAB CHEMISTRY METHOD 11/17/2024 12:07 PM [facility] Alkaline Phosphatase 82 42 - 121 unit/L LAB CHEMISTRY METHOD 11/17/2024 12:07 PM [facility] Total Protein 5.4(L) 6.0 - 8.0 g/dL LAB CHEMISTRY METHOD 11/17/2024 12:07 PM [facility] Albumin 2.9(L) 3.2 - 5.0 g/dL LAB CHEMISTRY METHOD 11/17/2024 12:07 PM [facility] Total Bilirubin 1.1 0.0 - 1.4 mg/dL LAB CHEMISTRY METHOD 11/17/2024 12:07 PM [facility] Blood Venous blood specimen / Unknown Venipuncture / Unknown 11/17/2024 6:35 AM EDT 11/17/2024 10:07 AM EDT us Melanie FLORES LAB BLOOD ORDERABLES Final Re sult [facility] [address] [place] [address], * (ABNORMAL) Complete blood count (11/17/2024 6:35 AM EDT) WBC 7.8 4.8 - 10.8 K/mcL LAB HEMETOLOGY METHOD 11/17/2024 10:58 AM T [facility] RBC 2.70(L) 4.50 - 5.50 M/mcL LAB HEMETOLOGY METHOD 11/17/2024 10:58 AM EDT [facility] Hemoglobin 7.7(L) 13.5 - 17.5 g/dL LAB HEMETOLOGY METHOD 11/17/2024 10:58 AM [facility] Hematocrit 23.3(L) 42.0 - 54.0 % LAB HEMETOLOGY METHOD 11/17/2024 10:58 AM [facility] MCV 86.3 79.0 - 98.0 FL LAB HEMETOLOGY METHOD 11/17/2024 10:58 AM [facility] MCH 28.5 27.0 - 32.0 pcg LAB HEMETOLOGY METHOD 11/17/2024 10:58 AM [facility] MCHC 33.0 32.0 - 37.0 g/dL LAB HEMETOLOGY METHOD 11/17/2024 10:58 AM [facility] RDW 13.8 11.0 - 15.0 % LAB HEMETOLOGY METHOD 11/17/2024 10:58 AM [facility] Platelets 292 130 - 400 K/mcL LAB HEMETOLOGY METHOD 11/17/2024 10:58 AM [facility] MPV 10.6 7.0 - 11.0 FL LAB HEMETOLOGY METHOD 11/17/2024 10:58 AM [facility] NRBC 0.0 <1.0 % LAB HEMETOLOGY METHOD 11/17/2024 10:58 AM [facility] NRBC Absolute 0.00 <0.10 K/mcL LAB HEMETOLOGY METHOD 11/17/2024 10:58 AM [facility] Blood Venous blood specimen / Unknown Venipuncture / Unknown 11/17/2024 6:35 AM EDT 11/17/2024 10:07 AM EDT us Melanie FLORES LAB BLOOD ORDERABLES Final Re sult [facility] [address] [place] [address], documented in this encounter Visit Diagnoses Diagnosis Encounter for other general examination documented in this encounter Additional Health Concerns Assessment Noted Time PHQ-9 Depression Total Score: 0 03/25/19 3:29 PM EST A fall risk assessment has been complete d for the patient 03/25/2024 3:29 PM EST documented as of this encounter Care Teams Wildlife Biology Technician Relationship Specialty Start Date End Date Donaldo Fenton MD [address] [place] [phone] PCP - General Internal Medicine 11/18/24 documented as of this encounter
--- OUTSIDE RECORDS SUMMARY | 2025-02-14 18:04 | XMS_ITS ---
Author Organization [facility] [address] [place] [address] Address [address] [place] [address] Phone Care Team Providers Care Membership Counselor Name Role Phone Donaldo Fenton MD Primary Care Provider [phone] Chronic Care Management Status:Ongoing (Active) Start date:11/23/2024 Enrollment date:12/07/2024 Enrollment reason:Referred by Care Team Related social drivers of health:Transportation Case Team Name Relationship Phone Kat Valentin RN(Responsible Staff) Care Stewart robertson Continued Care and Services Coordination
--- OUTSIDE RECORDS SUMMARY | 2025-02-14 18:04 | XMS_ITS | Clinical Summary ---
Author Organization [facility] [address] [place] [address] Address [address] [place] [address] Phone Care Team Providers Care [employer] Se[employer] Manager Name Role Phone Donaldo Fenton MD Primary Care Provider [phone] Allergies Active Allergy Reactions Criticality Noted Date Comments Rivaroxaban 03/26/2017 Makes pt bleed Medications sacubitriL-valsar landeros (Entresto) 97-103 mg per tablet Take 1 tablet by mouth 2 (two) times a day. Active ivabradine (Corlanor) 5 mg tablet Take 5 mg by mouth 2 times daily. Active acetaminophen (TYLENOL 8 HOUR) 650 mg 8 hr tablet Take 1 Tablet by mouth 2 times daily for 10 days. 023 Active apixaban (Eliquis) 5 mg tablet Take 1 tablet (5 mg total) by mouth 2 (two) times a day. 022 Active carvediloL (COREG) 25 mg tablet Take 2 Tabs by mouth 2 times daily (with meals). 019 Active gabapentin (NEURONTIN) 100 mg capsule Take 1 capsule (100 mg total) by mouth 3 (three) times a day if needed. 024 Active omeprazole (PriLOSEC) [address] capsule Take 1 capsule (20 mg total) by mouth 2 (two) times a day. 024 Active mirtazapine (REMERON) 7.5 mg tablet TAKE 1 TABLET BY MOUTH EVERY NIGHT AT BEDTIME. 90 tablet 1 025 Active tamsulosin (FLOMAX) 0.4 mg 24 hr capsule Take 1 capsule (0.4 mg total) by mouth 1 (one) time each day. Capsules should be taken 30 minutes following the same meal each day. 90 capsule 1 025 Active albuterol HFA (PROAIR HFA ; PROVENTIL HFA ; VENTOLIN HFA) 90 mcg/actuation inhaler Inhale 1 puff by mouth every 6 (six) hours if needed for wheezing. 6.7 g 1 025 Active cloNIDine (CATAPRES) 0.2 mg tablet Take 1 tablet (0.2 mg total) by mouth 2 (two) times a day. 180 tablet 1 025 Active finasteride (PROSCAR) 5 mg tablet TAKE 1 TABLET BY MOUTH EVERY DAY 90 tablet 025 Active furosemide (LASIX) 40 mg tablet TAKE 1 TABLET BY MOUTH TWICE A DAY 180 tablet 1 025 Active sertraline (ZOLOFT) 25 mg tablet Take 1 tablet (25 mg total) by mouth 1 (one) time each day. 90 tablet 1 025 Active ipratropium-albut Reyes (DUONEB) 0.5-2.5 mg/3 mL nebulizer solution TAKE 3 ML BY NEBULIZATION EVERY 4 (FOUR) HOURS IF NEEDED FOR WHEEZING. 360 mL 1 025 Active hydrOXYzine HCL (ATARAX) 25 mg tabletIndications :Generalized anxiety disorder TAKE 1 TABLET BY MOUTH EVERY 8 HOURS NEEDED FOR ANXIETY 270 tablet 1 025 Active oxyCODONE-acetami nophen (PERCOCET) 7.5-325 mg per tabletIndications :Lumbar disc disease,Primary osteoarthritis of left hip Take 1 tablet by mouth 5 (five) times a day. Max Daily Amount: 5 tablets 140 tablet 025 Active hydrOXYzine HCL (ATARAX) 25 mg tablet Take 1 tablet (25 mg total) by mouth 2 (two) times a day if needed. 024 2024 Discontinued cyanocobalamin (VITAMIN B-12) 1,000 mcg/mL injection Inject 1 mL into the muscle every 30 days. Vitamin B12 1000 mcg q week x 4 weeks then q month 024 2024 Discontinued cloNIDine (CATAPRES) 0.1 mg tablet Take 1 tablet (0.1 mg total) by mouth 2 (two) times a day. 2024 Discontinued sacubitriL-valsar landeros (Entresto) 97-103 mg per tablet Take 1 Tab by mouth 2 times daily. 2024 Discontinued ivabradine (Corlanor) 5 mg tablet Take 1 tablet (5 mg total) by mouth 2 (two) times a day. 2024 Discontinued hydrOXYzine HCL (ATARAX) 25 mg tabletIndications :Generalized anxiety disorder TAKE 1 TABLET (25 MG TOTAL) BY MOUTH EVERY 8 HOURS NEEDED FOR ANXIETY 45 tablet 2024 Discontinued hydrOXYzine HCL (ATARAX) 25 mg tabletIndications :Generalized anxiety disorder TAKE 1 TABLET (25 MG TOTAL) BY MOUTH EVERY 8 HOURS NEEDED FOR ANXIETY 45 tablet 2024 Discontinued oxyCODONE-acetami nophen (PERCOCET) 7.5-325 mg per tabletIndications :Lumbar disc disease,Primary osteoarthritis of left hip Take 1 tablet by mouth 5 (five) times a day. Max Daily Amount: 5 tablets 140 tablet 2024 Discontinued(R eorder) hydrOXYzine HCL (ATARAX) 25 mg tabletIndications :Generalized anxiety disorder TAKE 1 TABLET BY MOUTH EVERY 8 HOURS NEEDED FOR ANXIETY. 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 restart date: 11/30/2013. stop date: 11/30/2013. Flash pulmonary edema ([facility] V24, CMS/FORMERLY [facility] V28) 02/17/2024 GERD (gastroesophageal reflux disease) Anemia due to vitamin B12 deficiency 10/16/2023 Vitamin B12 deficiency disease 10/16/2023 Generalized anxiety disorder 10/15/2023 Panic attacks 10/15/2023 Elevated PSA 12/04/2022 COPD (chronic obstructive pu lmonary disease) (CMS/HCC V24, CMS/FORMERLY [facility] V28) 11/30/2020 Overview (12/29/2023): Dr. Yeboah note (01/31/2015) Post-traumatic osteoarthritis of left knee 08/18 Erectile dysfunction 09/20/2016 Essential hypertension 06/21/2015 Cardiomyopathy (CMS/HCC V24, CMS/HCC V28) 2015 Severe mitral regurgitation 01/31/2015 Fibula fracture 10/02/2012 Cervical disc disease 06/04/2012 Lumbar disc disease 06/04/2012 Back pain 12/14/2010 Benign prostatic hyperplasia 12/14/2010 Overview (12/29/2023): Pt declined prostate exam Patella fracture 12/14/2010 Overview (12/29/2023): Playing basketball, s/p surgery bilaterally, many years ago Prostatism 11/20/2010 Encounters Date Type Department Care Team Description 01/25/2025 3:00 PM EST Office Visit Adult Medicine [address] [phone] Laverne Modi PA Essential hypertension (Primary Dx); HFrEF (heart failure with reduced ejection fraction) (CMS/HCC V24, CMS/HCC V28); Atrial fibrillation, unspecified type (CMS/HCC V24, CMS/HCC V28); Chronic obstructive pulmonary disease, unspecified COPD type (CMS/HCC V24, CMS/HCC V28); Benign prostatic hyperplasia, unspecified whether lower urinary tract symptoms present; Lumbar disc disease; Encounter for long-term (current) use of medications; Prediabetes; Anemia due to vitamin B12 deficiency, unspecified B12 deficiency type; Status post left hip replacement; Anxiety 01/18/2025 Billing Patient Not Present Adult Medicine [address] [phone] Donaldo Fenton MD 01/07/2025 Billing Patient Not Present Adult Medicine [address] [phone] Donaldo Fenton MD 12/29/2024 Telephone Adult Medicine [address] [phone] Donaldo Fenton MD 12/29/2024 Telephone Adult [address] [phone] Donaldo Fenton MD 12/10/2024 10:30 AM EDT Office Visit Adult [address] [phone] Donaldo Fenton MD S/P total left hip arthroplasty (Primary Dx); Lumbar disc disease; Primary osteoarthritis of left hip; Cardiomyopathy, unspecified type (CMS/HCC V24, CMS/HCC V28); Essential hypertension; HFrEF (heart failure with reduced ejection fraction) (CMS/HCC V24, CMS/HCC V28); Atrial fibrillation, unspecified type (CMS/HCC V24, CMS/HCC V28) 12/08/2024 Telephone Adult [address] [phone] Donaldo Fenton MD 12/07/2024 Telephone Adult [address] [phone] Donaldo Fenton MD 12/06/2024 [place] Adult [address] [phone] Donaldo Fenton MD 12/01/2024 Telephone Adult [address] [phone] Francisca Ruffin MA 11/23/2024 Telephone Adult Medicine [address] [phone] Donaldo Fenton MD 11/18/2024 Telephone Adult Medicine [address] [phone] Janeth Hernandez MA 11/17/[address] [facility] [address] [place] [address] [place] [address] Melanie Cortez PA Encounter for other general examination 11/15/[address] [facility] [address] [facility] [place] [address] Melina Parrish PA Encounter for other general examination from Last 3 Months Immunizations Immunization Administration Dates Next Due Influenza Quadravalent, MDCK , 0.5ml, preservative free (Flucelvax) 6mo and older 04/30/2018 Influenza Quadravalent, MDCK , 0.5ml, with preservative (Flucelvax) 6mo and older 12/23/2016 Influenza trivalent, 0.5mL ( Fluad) 65yo and older 01/25/2025,03/25/2024,12/18/2022,2021,05/05/2020 Influenza trivalent, 0.5mL, preservative free (Fluarix; FluLaval; Fluzone) ages 6mo and older (Afluria) 3 years and older 12/14/2010 Influenza trivalent, with preservative (Fluzone; Afluria) 6mo and older 12/22/2015,12/31/2012,2011,2009 Influenza, Unspecified 12/22/2015 Pneumococcal conjugate 13 va lent (Prevnar 13, PCV13) 2mo and older 12/07/2021 Pneumococcal conjugate 20 va lent (Prevnar 20, PCV 20) 2mo and older 12/18/2022 Tdap Tetanus diptheria acell ular pertussis (Boostrix; Adacel) 7yo and older 06/03/2012,03/06/2010 Medical History Medical History Date Comments Back pain DX:Back pain; CO MMENT: degenerative disk, disabled from this, after a fall BPH (benign prostatic hypertrophy) 12/14/2010 DX:BPH (benign prostatic hypertrophy) GERD (gastroesophageal reflu x disease) DX:GERD (gastroesophageal re flux disease) Family History Medical History Relation Name Comments Lung cancer Brother 1 smoker, at age 54, pt not really sure Heart attack Father at age 66 Relation Name Status Comments Brother 1 Brother 2 Father Social History Tobacco Use Types Packs/Day Years Used Date Smoking Tobacco: Former Cigarettes 0.5 55 1 04/17/1959 - 03/02/2015 Smokeless Tobacco: Former Quit: 12/31/2014 Tobacco Cessation:Counseling Given: Not Answered Alcohol Use Standard Drinks/Week Comments No 0 [...] on file Sexual Orientation Not on file Obstetrics History Last Filed Vital Signs Vital Sign Reading Time Taken Comments Blood Pressure 120/70 01/25/2025 2:44 PM EST Pulse 52 01/25/2025 2:44 PM EST Temperature 35.9 C (96.7 F) 01/25/2025 2:44 PM EST Respiratory Rate 14 12/10/2024 10:21 AM EDT Oxygen Saturation 96% 01/25/2025 2:44 PM EST Inhaled Oxygen Concentration - - Weight 106 kg (234 lb) 01/25/2025 2:44 PM EST Height 172.7 cm (5' 7.99 ) 01/25/2025 2:44 PM ES T Body Mass Index 35.59 01/25/2025 2:44 PM EST Plan of Treatment Upcoming Encounters Date Type Department Care Team (Late st Contact Info) Description 08/05/2025 3:00 PM EDT Office Visit Adult Medicine [address] [phone] Donaldo Fenton MD [address] [place] [address] Health Maintenance Due Date Last Done Comments Colorectal Cancer Screening: Colonoscopy 1950 RSV Immunization Adult Patients (1 - Risk 50-74 years 1-dose series) 2002 Zoster Vaccines (1 of 2) 2002 Abdominal Aortic Aneurysm (AAA) Screen 02/23/2022 Lung Cancer Screening (Low Dose CT) 02/23/2022 DTaP,Tdap,and Td Vaccines (3 - Td or Tdap) 06/03/2022 06/03/2012, 03/06/2010 COVID-19 Vaccine (3 - season) 2024 01/18/2021, 06/12/2020 Falls Risk Assessment 03/25/2025 03/25/2024, 024 Medicare Annual Wellness Visit 03/25/2025 03/25/2024 Social Influencers of Health Screening 10/04/2025 10/04/2024 Hypertension/CHF/CAD Annual BMP Blood Test 11/17/2025 11/17/2024, 11/15/2024, 11/13/2024, Additional history exists Cholesterol Screening (Lipid Panel) 05/21/2027 05/20/2022 Hepatitis C Screening Completed 11/10/2009 Pneumococcal Vaccine: 50+ Years Completed 12/18/2022, 12/07/2021 Depression Screening Completed 03/25/2024, 03/24/19 24 Influenza Vaccine Completed 01/25/2025, , 12/18/2022, Additional history exists HIB Vaccines Aged Out No longer eligi ble based on patient's age to complete this topic HPV Vaccines Aged Out No longer eligi ble based on patient's age to complete this topic Hepatitis A Vaccines Aged Out No long er eligible based on patient's age to complete this topic Hepatitis B Vaccines Aged Out No long er eligible based on patient's age to complete this topic IPV Vaccines Aged Out No longer eligi ble based on patient's age to complete this topic MMR Vaccines Aged Out No longer eligi ble based on patient's age to complete this topic Meningococcal ACWY Vaccine Aged Out N o longer eligible based on patient's age to complete this topic Meningococcal B Vaccine Aged Out No l onger eligible based on patient's age to complete this topic RSV Immunization Patients Under 20 months Aged Out No longer eligible based on patient's age to complete this topic Varicella Vaccines Aged Out No longer eligible based on patient's age to complete this topic Procedures Procedure Name Priority Date/Time Associated Diagnosis Comments COMPREHENSIVE METABOLIC PANEL Routine 11/17/2024 6:35 AM EDT Encounter for other general examination COMPLETE BLOOD COUNT Routine 11/17/2024 6:35 AM EDT Encounter for other general examination BASIC METABOLIC PANEL Routine 11/15/2024 5:59 AM EDT Encounter for other general examination HM DEPRESSION SCREENING Routine 03/24/2023 FALLS RISK ASSESSMENT Routine 03/24/2023 LIPID PANEL Routine 05/20/2022 HEPATITIS C SCREENING Routine 11/10/2009 from Last 3 Months or Most Recently Relevant to Health Maintenance Results * (ABNORMAL) Complete blood count (11/17/2024 6:35 AM EDT) [facility] WBC 7.8 4.8 - 10.8 K/mcL LAB HEMETOLOGY METHOD 11/17/2024 10:58 AM EDT [facility] RBC 2.70(L) 4.50 - 5.50 M/mcL LAB HEMETOLOGY METHOD 11/17/2024 10:58 AM [facility] Hemoglobin 7.7(L) 13.5 - 17.5 g/dL LAB HEMETOLOGY METHOD 11/17/2024 10:58 AM [facility] Hematocrit 23.3(L) 42.0 - 54.0 % LAB HEMETOLOGY METHOD 11/17/2024 10:58 AM [facility] MCV 86.3 79.0 - 98.0 FL LAB HEM[facility]OLOGY [facility] MCH 28.5 27.0 - 32.0 pcg LAB HEMETOLOGY METHOD 11/17/2024 10:58 AM [facility] MCHC 33.0 32.0 - 37.0 g/dL LAB HEMETOLOGY METHOD 11/17/2024 10:58 AM [facility] RDW 13.8 11.0 - 15.0 % LAB HEMETOLOGY METHOD 11/17/2024 10:58 AM [facility] Platelets 292 130 - 400 K/mcL LAB HEMETOLOGY METHOD 11/17/2024 10:58 AM EDT [facility] MPV 10.6 7.0 - 11.0 FL LAB HEMETOLOGY METHOD 11/17/2024 10:58 AM EDT [facility] NRBC 0.0 <1.0 % LAB HEMETOLOGY METHOD 11/17/2024 10:58 AM EDT [facility] NRBC Absolute 0.00 <0.10 K/mcL LAB HEMETOLOGY METHOD 11/17/2024 10:58 AM EDT [facility] Blood Venous blood specimen / Unknown Venipuncture / Unknown 11/17/2024 6:35 AM EDT 11/17/2024 10:07 AM EDT us Melanie FLORES LAB BLOOD ORDERABLES Final Re sult [facility] [address] [place] [address], * (ABNORMAL) Comprehensive metabolic panel (11/17/2024 6:35 AM EDT) Sodium 138 133 - 145 mmol/L LAB CHEMISTRY METHOD 11/17/2024 12:07 PM [facility] Potassium 4.2 3.5 - 5.5 mmol/L LAB CHEMISTRY METHOD 11/17/2024 12:07 PM [facility] Chloride 102 96 - 110 mmol/L LAB CHEMISTRY METHOD 11/17/2024 12:07 PM [facility] CO2 29 21 - 32 mmol/L LAB CHEMISTRY METHOD 11/17/2024 12:07 PM [facility] Anion Gap 7 3 - 11 LAB CHEMISTRY METHOD 11/17/2024 12:07 PM [facility] Glucose 72 70 - 100 mg/dL LAB CHEMISTRY METHOD 11/17/2024 12:07 PM [facility] BUN 20 5 - 25 mg/dL LAB CHEMISTRY METHOD 11/17/2024 12:07 PM [facility] Creatinine 1.21 0.70 - 1.30 mg/dL LAB CHEMISTRY METHOD 11/17/2024 12:07 PM [facility] eGFR 64 >=60 mL/min/1. 73m2 LAB CHEMISTRY METHOD 11/17/2024 12:07 PM [facility] Comment:Calculation based on the Chronic Kidney Disease Epidemiology Collaboration (CKD-EPI) equation refit without adjustment for race. BUN/Creatinine Ratio 16.5 LAB CHEMISTRY METHOD 11/17/2024 12:07 PM [facility] Calcium 8.1(L) 8.5 - 10.5 mg/dL LAB CHEMISTRY METHOD 11/17/2024 12:07 PM [facility] AST (SGOT) 25 10 - 42 unit/L LAB CHEMISTRY METHOD 11/17/2024 12:07 PM [facility] ALT (SGPT) 16 10 - 60 unit/L LAB CHEMISTRY METHOD 11/17/2024 12:07 PM [facility] Alkaline Phosphatase 82 42 - 121 unit/L LAB CHEMISTRY METHOD 11/17/2024 12:07 PM [facility] Total Protein 5.4(L) 6.0 - 8.0 g/dL LAB CHEMISTRY METHOD 11/17/2024 12:07 PM [facility] Albumin 2.9(L) 3.2 - 5.0 g/dL LAB CHEMISTRY METHOD 11/17/2024 12:07 PM [facility] Total Bilirubin 1.1 0.0 - 1.4 mg/dL LAB CHEMISTRY METHOD 11/17/2024 12:07 PM [facility] Blood Venous blood specimen / Unknown Venipuncture / Unknown 11/17/2024 6:35 AM EDT 11/17/2024 10:07 AM EDT us Melanie FLORES LAB BLOOD ORDERABLES Final Re sult [facility] [address] [place] [address], * (ABNORMAL) Basic metabolic panel (11/15/2024 5:59 AM EDT) Sodium 137 133 - 145 mmol/L LAB CHEMISTRY METHOD 11/15/2024 9:56 AM T [facility] Potassium 4.3 3.5 - 5.5 mmol/L LAB CHEMISTRY METHOD 11/15/2024 9:56 AM [facility] Chloride 105 96 - 110 mmol/L LAB CHEMISTRY METHOD 11/15/2024 9:56 AM [facility] CO2 29 21 - 32 mmol/L LAB CHEMISTRY METHOD 11/15/2024 9:56 AM [facility] Anion Gap 3 3 - 11 LAB CHEMISTRY METHOD 11/15/2024 9:56 AM [facility] Glucose 77 70 - 100 mg/dL LAB CHEMISTRY METHOD 11/15/2024 9:56 AM [facility] BUN 21 5 - 25 mg/dL LAB CHEMISTRY METHOD 11/15/2024 9:56 AM [facility] Creatinine 1.11 0.70 - 1.30 mg/dL LAB CHEMISTRY METHOD 11/15/2024 9:56 AM [facility] eGFR 71 >=60 mL/min/1. 73m2 LAB CHEMISTRY METHOD 11/15/2024 9:56 AM [facility] Comment:Calculation based on the Chronic Kidney Disease Epidemiology Collaboration (CKD-EPI) equation refit without adjustment for race. BUN/Creatinine Ratio 18.9 LAB CHEMISTRY METHOD 11/15/2024 9:56 AM [facility] Calcium 8.2(L) 8.5 - 10.5 mg/dL LAB CHEMISTRY METHOD 11/15/2024 9:56 AM EDT [facility] Blood Venous blood specimen / Unknown Venipuncture / Unknown 11/15/2024 5:59 AM EDT 11/15/2024 8:52 AM EDT Result [facility] Melina FLORES LAB BLOOD ORDERABLES Final Resul t [facility] [address] [place] [address], * Falls Risk Assessment (03/24/2023) [facility] Falls Risk Assessment abstracted [facility] Provider HEALTH MAINTENANCE Final Result * Depression Screening (03/24/2023) [facility] Depression Screening abstracted [facility] Provider HEALTH MAINTENANCE Final Result * (ABNORMAL) Lipid panel (05/20/2022) [facility] LDL/HDL Ratio 3 0 - 4 Triglycerides 79 0 - 150 mg/dL Cholesterol 207(A) 0 - 200 mg/dL HDL 80 >=40 mg/dL LDL Cholesterol 112(A) 0 - 100 mg/dL Blood Venous blood specimen / Unknown Result [facility] Historical Provider LAB BLOOD ORDERABLES Ирина l Result * Hepatitis C Screening (11/10/2009) [facility] Hepatitis C Screening abstracted Result [facility] Historical Provider HEALTH MAINTENANCE Final Result from Last 3 Months or Most Recently Relevant to Health Maintenance Insurance MEDICARE [place]ICAID [place] [employer] Care Teams [employer] Manager Relationship Specialty Start Date End Date Donaldo Fenton MD [address] [place] [phone] PCP - General Internal Medicine 11/18/24
--- OUTSIDE RECORDS SUMMARY | 2025-02-14 18:04 | XMS_ITS | Encounter Summary ---
Author Organization [facility] Address [address] [place] [address] Care Team Providers Care Investigator Cash Shortage Name Role Phone Donaldo Fenton MD Primary Care Provider [phone] Encounter Details Date Type Department Care Team (Late st Contact Info) Description 11/13/2024 Lab Requisition [facility] - Main Lab [address] [facility] [place] [address] Melina Parrish PA [address] [place] [address] Encounter for other general examination Social History [...] care for your loved ones. For example, registered nurse maternal child or elderly care for an older adult? [...] 3:00 PM EDT Office Visit Adult Medicine [address] [phone] Donaldo Fenton MD [address] [place] [address] documented as of this encounter Procedures Procedure Name Priority Date/Time Associated Diagnosis Comments CBC WITH AUTO DIFFERENTIAL Routine 11/13/2024 6:00 AM EDT Encounter for other general examination CBC AND DIFFERENTIAL Routine 11/13/2024 6:00 AM EDT Encounter for other general examination MAGNESIUM Routine 11/13/2024 6:00 AM EDT Encounter for other general examination COMPREHENSIVE METABOLIC PANEL Routine 11/13/2024 6:00 AM EDT Encounter for other general examination documented in this encounter Results * (ABNORMAL) CBC auto differential (11/13/2024 6:00 AM EDT) WBC 10.6 4.8 - 10.8 K/mcL LAB HEMETOLOGY METHOD 11/13/2024 11:43 AM [facility] RBC 2.80(L) 4.50 - 5.50 [facility] LAB HEMETOLOGY METHOD 11/13/2024 11:43 AM [facility] Hemoglobin 7.9(L) 13.5 - 17.5 g/dL LAB HEMETOLOGY METHOD 11/13/2024 11:43 AM [facility] Hematocrit 25.4(L) 42.0 - 54.0 % LAB HEMETOLOGY METHOD 11/13/2024 11:43 AM [facility] MCV 90.7 79.0 - 98.0 FL LAB HEMETOLOGY METHOD 11/13/2024 11:43 AM [facility] MCH 28.2 27.0 - 32.0 pcg LAB HEMETOLOGY METHOD 11/13/2024 11:43 AM [facility] MCHC 31.1(L) 32.0 - 37.0 g/dL LAB HEMETOLOGY METHOD 11/13/2024 11:43 AM [facility] RDW 13.9 11.0 - 15.0 % LAB HEMETOLOGY METHOD 11/13/2024 11:43 AM [facility] Platelets 189 130 - 400 K/mcL LAB HEMETOLOGY METHOD 11/13/2024 11:43 AM [facility] MPV 11.5(H) 7.0 - 11.0 FL LAB HEMETOLOGY METHOD 11/13/2024 11:43 AM [facility] NRBC 0.0 <1.0 % LAB HEMETOLOGY METHOD 11/13/2024 11:43 AM [facility] NRBC Absolute 0.00 <0.10 K/mcL LAB HEMETOLOGY METHOD 11/13/2024 11:43 AM [facility] Neutrophils Relative 72.5 % LAB HEMETOLOGY METHOD 11/13/2024 11:43 AM [facility] Lymphocytes Relative 13.8 % LAB HEMETOLOGY METHOD 11/13/2024 11:43 AM [facility] Monocytes Relative 12.5 % LAB HEMETOLOGY METHOD 11/13/2024 11:43 AM [facility] Eosinophils Relative 0.6 % LAB HEMETOLOGY METHOD 11/13/2024 11:43 AM [facility] Basophils Relative 0.2 % LAB HEMETOLOGY METHOD 11/13/2024 11:43 AM [facility] Immature Granulocytes Relative 0.4 % LAB HEMETOLOGY METHOD 11/13/2024 11:43 AM [facility] Neutrophils Absolute 7.72(H) 1.50 - 7.00 K/mcL LAB HEMETOLOGY METHOD 11/13/2024 11:43 AM [facility] Lymphocytes Absolute 1.47 1.00 - 5.00 K/mcL LAB HEMETOLOGY METHOD 11/13/2024 11:43 AM EDT [facility] Monocytes Absolute 1.33(H) 0.20 - 1.00 K/mcL LAB HEMETOLOGY METHOD 11/13/2024 11:43 AM EDT [facility] Eosinophils Absolute 0.06 0.00 - 0.50 [facility] LAB HEMETOLOGY METHOD 11/13/2024 11:43 AM EDT [facility] Basophils Absolute 0.02 0.00 - 0.20 [facility] LAB HEMETOLOGY METHOD 11/13/2024 11:43 AM EDT [facility] Immature Granulocytes Absolute 0.04(H) 0.00 - 0.03 K/mcL LAB HEMETOLOGY METHOD 11/13/2024 11:43 AM EDT [facility] Blood Venous blood specimen / Unknown Venipuncture / Unknown 11/13/2024 6:00 AM EDT 11/13/2024 10:56 AM EDT [facility] LAB BLOOD ORDERABLES Final Resul t [facility] [address] [place] [address], * (ABNORMAL) Comprehensive metabolic panel (11/13/2024 6:00 AM EDT) Sodium 139 133 - 145 mmol/L LAB CHEMISTRY METHOD 11/13/2024 12:03 PM [facility] Potassium 4.7 3.5 - 5.5 mmol/L LAB CHEMISTRY METHOD 11/13/2024 12:03 PM [facility] Chloride 104 96 - 110 mmol/L LAB CHEMISTRY METHOD 11/13/2024 12:03 PM [facility] CO2 30 21 - 32 mmol/L LAB CHEMISTRY METHOD 11/13/2024 12:03 PM [facility] Anion Gap 5 3 - 11 LAB CHEMISTRY METHOD 11/13/2024 12:03 PM [facility] Glucose 83 70 - 100 mg/dL LAB CHEMISTRY METHOD 11/13/2024 12:03 PM [facility] BUN 24 5 - 25 mg/dL LAB CHEMISTRY METHOD 11/13/2024 12:03 [facility] Creatinine 1.33(H) 0.70 - 1.30 mg/dL LAB CHEMISTRY METHOD 11/13/2024 12:03 PM [facility] eGFR 57(L) >=60 mL/min/1. 73m2 LAB CHEMISTRY METHOD 11/13/2024 12:03 PM [facility] Comment:Calculation based on the Chronic Kidney Disease Epidemiology Collaboration (CKD-EPI) equation refit without adjustment for race. BUN/Creatinine Ratio 18.0 LAB CHEMISTRY METHOD 11/13/2024 12:03 PM [facility] Calcium 8.3(L) 8.5 - 10.5 mg/dL LAB CHEMISTRY METHOD 11/13/2024 12:03 [facility] AST (SGOT) 18 10 - 42 unit/L LAB CHEMISTRY METHOD 11/13/2024 12:03 [facility] ALT (SGPT) 14 10 - 60 unit/L LAB CHEMISTRY METHOD 11/13/2024 12:03 [facility] Alkaline Phosphatase 66 42 - 121 unit/L LAB CHEMISTRY METHOD 11/13/2024 12:03 PM [facility] Total Protein 5.4(L) 6.0 - 8.0 g/dL LAB CHEMISTRY METHOD 11/13/2024 12:03 [facility] Albumin 2.8(L) 3.2 - 5.0 g/dL LAB CHEMISTRY METHOD 11/13/2024 12:03 [facility] Total Bilirubin 0.4 0.0 - 1.4 mg/dL LAB CHEMISTRY METHOD 11/13/2024 12:03 PM [facility] Blood Venous blood specimen / Unknown Venipuncture / Unknown 11/13/2024 6:00 AM EDT 11/13/2024 10:56 AM EDT [facility] LAB BLOOD ORDERABLES Final Resul t Performing Organization Address [facility]/ZIP Co de Phone Number [facility] [address] [place] [address], [place] [phone] * Magnesium (11/13/2024 6:00 AM EDT) Magnesium 2.0 1.9 - 2.6 mg/dL LAB CHEMISTRY METHOD 11/13/2024 12:03 PM EDT [facility] Blood Venous blood specimen / Unknown Venipuncture / Unknown 11/13/2024 6:00 AM EDT 11/13/2024 10:56 AM EDT Melina FLORES LAB BLOOD ORDERABLES Final Resul t Performing Organization Address [facility] Co de Phone Number [facility] [address] [place] [address], [place] [phone] documented in this encounter Visit Diagnoses Diagnosis Encounter for other general examination documented in this encounter Additional Health Concerns Assessment Noted Time PHQ-9 Depression Total Score: 0 03/25/19 3:29 PM EST A fall risk assessment has been complete d for the patient 03/25/2024 3:29 PM EST documented as of this encounter Care Teams Investigator Cash Shortage Relationship Specialty Start Date End Date Donaldo Fenton MD [address] [place] [phone] PCP - General Internal Medicine 11/18/24 documented as of this encounter
== END 2025-02-14 15:21 | disposition home or self-care (01) ==
LOC: HO.HCS 14:47
PROVIDERS: PCP Internal Medicine; Visit Provider Nurse Practitioner Family
DX: I42.8 Other cardiomyopathies (principal); I50.32 Chronic diastolic (congestive) heart failure; I48.0 Paroxysmal atrial fibrillation; Z95.810 Presence of automatic (implantable) cardiac defibrillator; I34.0 Nonrheumatic mitral (valve) insufficiency
CPT/HCPCS: 93282; 99214; G2211

== ENCOUNTER → 2025-02-14 14:47 | Outpatient (BNVA) | payer MEDICARE, SELFPAY | PROVIDERS: PCP Internal Medicine; Visit Provider Nurse Practitioner Family | DX: I48.0 Paroxysmal atrial fibrillation (principal); I42.8 Other cardiomyopathies; I34.0 Nonrheumatic mitral (valve) insufficiency; Z95.810 Presence of automatic (implantable) cardiac defibrillator; Z79.01 Long term (current) use of anticoagulants; Z87.891 Personal history of nicotine dependence | CPT/HCPCS: 93282; 99212 ==